=== PATIENT | male | born 1950 | race Caucasian/White ===

== ENCOUNTER 2023-11-01 13:26 | Outpatient (CLI) | payer MEDICARE, SELFPAY ==
--- NOTE | ~2023-11-01 | XR_ITS ---
XR hip LT 2V w AP pelvis DATE: 11/01/2023 13:59 INDICATION: Left hip pain. No injury. TECHNIQUE: AP pelvis. AP and lateral views of left hip. COMPARISON: None FINDINGS: No pelvic fracture or bone destruction. The pubic symphysis and sacroiliac joints are intac t. Hip joint spaces are symmetric and relatively well preserved. No fracture, dislocation, avascular necrosis or bone destruction. IMPRESSION: Negative Reviewed, dictated and finalized at location L. CLEANING MACHINE TENDER IMPRESSION: Negative
--- NOTE | ~2023-11-01 | XR_ITS ---
XR knee RT min 4V DATE: 11/01/2023 13:59 INDICATION: Right knee pain TECHNIQUE: [place], standing AP, PA and lateral views COMPARISON: 01/04/2023 right knee FINDINGS: There is severe narrowing at the medial compartment joint space with periarticular spurring of the medial compartment with near [id number] at the more medial aspect of the medial compartment . Lateral compartment joint space is well preserved. Mild periarticular patellar spurring. Mild enthesopathy at the insertion of the quadriceps tendon at the superior pole of the patella. No fracture or dislocation, radiopaque intra-articular loose body or chondrocalcinosis or significant joint effusion is evident. No periosteal reaction or bone destruction. 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 N SAMPLER IMPRESSION: Tricompartment osteoarthritis, most severe at the medial compartmen t
--- NOTE | ~2023-11-01 | XR_ITS ---
XR knee LT min 4V DATE: 11/01/2023 14:00 INDICATION: Left knee pain. No injury. TECHNIQUE: [place], standing AP, PA and lateral views COMPARISON: None FINDINGS: There is superior pole patellar enthesopathy at quadriceps tendon insertion. There is minimal periarticular spurring of the patella. There is mild to moderate loss of medial compartment joint space height. Lateral compartment joint sp ramon is well preserved. No fracture or dislocation or joint effusion, periosteal reaction or bone destruction, radiopaque int ra-articular loose body or chondrocalcinosis. IMPRESSION: Mild patellofemoral and medial compartment osteoarthritis Reviewed, dictated and finalized at location L. INE PACKER
== END 2023-11-01 13:27 | disposition home or self-care (01) ==
PROVIDERS: PCP Family Medicine; Visit Provider Orthopaedic Surgery
DX: M25.552 Pain in left hip (principal); M17.0 Bilateral primary osteoarthritis of knee
CPT/HCPCS: 73502; 73564

== ENCOUNTER 2024-09-12 12:31 | Outpatient (CLI) | payer OTHER, SELFPAY ==
--- NOTE | ~2024-09-12 | XR_ITS ---
EXAMINATION: XR hip LT 2V w AP pelvis DATE: 09/12/2024 12:54 INDICATION: Unilateral primary osteoarthritis, left hip. TECHNIQUE: An anteroposterior view of the pelvis and 2 views of left hip were obtained. COMPARISON: Pelvis and left hip radiographs 11/01/2023 FINDINGS: Alignment is normal. No fracture. There is mild lumbar spondylosis. There is mild osteoarth ritis of the hips. IMPRESSION: 1. Mild osteoarthritis of the hips. Reviewed, dictated and finalized at location A. EN SETTLING TENDER
--- NOTE | ~2024-09-12 | XR_ITS ---
EXAMINATION: XR knee RT min 4V DATE: 09/12/2024 12:54 INDICATION: Right knee pain. TECHNIQUE: 4 views of right knee including weight-bearing views were obtained. COMPARISON: Right knee radiographs 11/01/2023 FINDINGS: There is varus angulation at the knee. No fracture. There is moderate osteoarthritis of med ial compartment and mild osteoarthritis of lateral and patellofemoral fragments. No knee joint effusi on. IMPRESSION: 1. Moderate right knee osteoarthritis. Reviewed, dictated and finalized at location A. OPERATOR
== END 2024-09-12 12:32 | disposition home or self-care (01) ==
PROVIDERS: PCP Family Medicine; Visit Provider Orthopaedic Surgery
DX: M17.11 Unilateral primary osteoarthritis, right knee (principal); M16.12 Unilateral primary osteoarthritis, left hip
CPT/HCPCS: 73502; 73564

== ENCOUNTER 2024-09-30 08:38 | Outpatient (CLI) | payer OTHER, SELFPAY ==
--- NOTE | ~2024-09-30 | CT_ITS ---
EXAMINATION: CT LE RT wo con DATE: 09/30/2024 09:04 INDICATION: Right knee osteoarthritis. Preoperative planning. TECHNIQUE: Computed tomography (CT) of the right lower limb was performed without intravenous contras t. Automated exposure control and iterative reconstruction technique were employed. The dose-length p roduct was 1880.62 mGy-cm. COMPARISON: Right knee radiographs 09/12/2024 FINDINGS: There is mild right hip osteoarthritis. There is varus angulation at the knee. No fracture. There is moderate osteoarthritis of medial compartment and mild osteoarthritis of lateral and patell ofemoral compartments. No knee joint effusion. IMPRESSION: 1. Moderate right knee osteoarthritis. Reviewed, dictated and finalized at location A. ENT AND LACQUER MIXER
--- NOTE | 2024-09-30 09:27 | ECG_ITS ---
Test Date: 2024-09-30 09:39:27 Measurements Intervals [place] Rate: 61 P: 57 NJ: 195 QRS: 29 QRSD: 114 T: 52 QT: 422 QTc: 427 Interpretive Statements SINUS RHYTHM POSSIBLE INFERIOR MYOCARDIAL INFARCTION , PROBABLY OLD [30 ms Q WAVE IN II/aVF] No previous ECG available for comparison Electronically Signed On 09-30-2024 15:28:48 NUT ORCHARDIST by Darvin Milner M.D.
[2024-09-30 10:18] LABS: Hematocrit 39.5 % (42.0-52.0); Hemoglobin 12.7 g/dL (14.0-18.0)
[2024-09-30 10:30] LABS: Albumin Level 4.3 g/dL (3.5-5.1); Estimated Glomerular Filt Rate > 60; Glucose 116 mg/dL (65-110)
== END 2024-09-30 08:39 | disposition home or self-care (01) ==
PROVIDERS: PCP Family Medicine; Visit Provider Orthopaedic Surgery
DX: M17.11 Unilateral primary osteoarthritis, right knee (principal); E61.1 Iron deficiency; F11.90 Opioid use, unspecified, uncomplicated; R42 Dizziness and giddiness; M23.203 Derangement of unspecified medial meniscus due to old tear or injury, right knee
CPT/HCPCS: 36415; 73700; 82040; 82565; 82947; 85014; 85018; 93005

== ENCOUNTER 2024-12-15 09:47 | Outpatient (CLI) | payer OTHER, SELFPAY ==
[2024-12-15 11:30] LABS: Basophils Absolute Auto 0.1 K/mm3 (0.0-0.1); Eosinophils Absolute Auto 0.2 K/mm3 (0-0.3); Eosinophils Percent Auto 2.2 % (0-4.4); Hematocrit 39.4 % (42.0-52.0); Hemoglobin 12.6 g/dL (14.0-18.0); Immature Granulocyte Absolute 0.05 K/mm3 (0.00-0.031); Immature Granulocyte Percent A 0.5 % (0-0.5); Lymphocytes Absolute Auto 2.24 K/mm3 (0.9-3.2); Lymphocytes Percent Auto 23.2 % (18.3-44.2); Mean Corpuscular Hemoglobin 28.9 pg (26-34); Mean Corpuscular Volume 90.4 fl (80-100); Mean Platelet Volume 10.2 fl (7.4-10.4); Monocytes Absolute Auto 0.9 K/mm3 (0.1-0.6); Monocytes Percent Auto 9.4 % (2.6-8.5); Neutrophils Absolute Auto 6.2 K/mm3 (1.3-6.7); Neutrophils Percent Auto 63.7 % (45.5-73.1); Platelet Count Result 278 k/mm3 (150-375); Red Blood Count 4.36 M/mm3 (4.6-6.20); Red Cell Distribution Width 13.4 % (11.5-14.5); White Blood Count 9.7 K/mm3 (4.5-10.0)
[2024-12-15 11:44] LABS: Albumin Level 4.4 g/dL (3.5-5.1); Estimated Glomerular Filt Rate > 60; Glucose 105 mg/dL (65-110)
[2024-12-15 12:03] LABS: Urine Cotinine NEGATIVE
--- OUTSIDE RECORDS SUMMARY | 2024-12-15 12:40 | XMS_ITS | Clinical Summary ---
Author Organization [facility] Address [address] [address] Phone Care Team Providers Care Salvage Laborer Name Role Phone Ronni Simon MD Primary Care Provider [phone] Allergies No known active allergies Medications Multiple Vitamin (MULTIVITAMINS PO) Take 1 Tablet by mouth daily. Active clopidogrel (PLAVIX) 75 MG Tablet Take 1 Tablet by mouth daily. 90 Tablet 3 4 Active amLODIPine (NORVASC) 5 MG Tablet Take 1 Tablet by mouth 2 times daily. 180 Tablet 3 4 Active ferrous sulfate 325 (65 Fe) MG Tablet Take 1 Tablet by mouth daily. 90 Tablet 3 4 Active Additional Information Patient taking differently:325 mg Oral2 TIMES DAILY, Reported on 11/26/2024 levothyroxine (SYNTHROID) 100 MCG Tablet Take 1 Tablet by mouth daily. 90 Tablet 3 4 Active losartan (COZAAR) 50 MG Tablet Take 1 Tablet by mouth 2 times daily. 180 Tablet 3 4 Active pravastatin (PRAVACHOL) 80 MG Tablet Take 1 Tablet by mouth daily. 90 Tablet 3 4 Active zolpidem (AMBIEN) 10 MG TabletIndicatio ns:Insomnia, unspecified type Take 1 Tablet by mouth nightly as needed for Sleep. 30 Tablet 5 Active zolpidem (AMBIEN) 10 MG TabletIndicatio ns:Insomnia, unspecified type Take 1 Tablet by mouth nightly as needed for Sleep. 30 Tablet 4 025 Discontin ued(Reord er) Active Problems Problem Noted Date Diagnosed Date Abnormal EKG 10/13/2024 Therapeutic drug monitoring 10/13/2024 Screening for colon cancer 06/03/2024 Primary hypertension 03/06/2024 Chronic hip pain, left 01/08/2024 Paresthesias 09/06/2023 Pain of left lower extremity 09/06/2023 Claudication 09/06/2023 Hemorrhoids 08/22/2021 Scalp pain 02/08/2021 Chronic pain syndrome 01/05/2021 Chronic narcotic use 01/05/2021 Mass of soft tissue 07/27/2020 Dizziness 04/22/2020 Abnormal x-ray of neck 04/22/2020 Chronic neck pain 04/22/2020 Spinal stenosis of cervical region 04/22/2020 History of stroke 04/22/2020 Neck pain 03/25/2020 Insomnia 07/01/2019 Fatigue 07/01/2019 Anemia, normocytic normochromic 06/25/2019 Hyperglycemia 06/25/2019 Overweight (BMI 25.0-29.9) 06/17/2018 History of recent stroke 03/13/2018 Herpes zoster without complication 03/05/2018 Obesity (BMI 30-39.9) 11/28/2017 Skin lesions 11/28/2017 Thyroid activity decreased 11/19/2015 Erectile dysfunction 11/19/2015 Hypertension, essential 11/19/2015 Thyroid activity decreased 11/19/2015 Hyperlipidemia 11/19/2015 Iron deficiency anemia 11/19/2015 Resolved Problems Problem Noted Date Diagnosed Date Resolved Date Overweight(278.02) 04/11/2017 8 Encounters Date Type Department Care Team Description 11/28[facility] [place] [phone] Ronni Simon MD Medication Refill 11/26/2024 Travel 11/20/2024 Documentation Only [facility] [place] [address] [place] [address] Ronni Simon MD 11/07/2024 Telephone [facility] - [facility] Medicine - [place] [address] [place] [address] Ronin Simon MD 10/30/2024 3:00 PM DUMBWAITER OPERATOR Office Visit [facility] - General Surgery - [place] [address] [place] [address] Aldo Perez MD Special screening for malignant neoplasms, colon (Primary Dx) Discharge Disposition: Discharged to home or Selfcare 10/30/2024 Travel 10/15/2024 8:45 AM DUMBWAITER OPERATOR - 10/15/2024 11:59 PM DUMBWAITER OPERATOR [facility] [address] [place] [address] Oehl, January N, SALES AND SERVICE ENGINEER, TELEPHONE TRIAGE NURSE Discharge Disposition: Discharged to home or Selfcare 10/15/2024 8:04 AM DUMBWAITER OPERATOR - 10/15/2024 8:44 AM DUMBWAITER OPERATOR [facility] [address] [place] [address] Oehl, January N, SALES AND SERVICE ENGINEER, TELEPHONE TRIAGE NURSE Discharge Disposition: Discharged to home or Selfcare 10/15/2024 7:50 AM DUMBWAITER OPERATOR - 10/15/2024 8:03 AM DUMBWAITER OPERATOR [facility] [address] [place] [address] Oehl, January N, SALES AND SERVICE ENGINEER, TELEPHONE TRIAGE NURSE Discharge Disposition: Discharged to home or Selfcare 10/15/2024 7:44 AM DUMBWAITER OPERATOR - 10/15/2024 7:49 AM DUMBWAITER OPERATOR [facility] Cardiology Stress [address] [place] [address] Oemalcolm, January N, SALES AND SERVICE ENGINEER, TELEPHONE TRIAGE NURSE Discharge Disposition: Discharged to home or Selfcare 10/15/2024 [facility] [place] [address] [place] [address] Oemalcolm, January N, SALES AND SERVICE ENGINEER, TELEPHONE TRIAGE NURSE 10/15/2024 Results Follow-Up [facility] [address] [place] [address] Temitope Vaz, SALES AND SERVICE ENGINEER, TELEPHONE TRIAGE NURSE 10/14/2024 Travel 10/14/2024 Telephone [facility] [address] [place] [address] Ronni Simon MD JURY DUTY NOTE 10/13/2024 1:30 PM DUMBWAITER OPERATOR Office Visit [facility] [address] [place] [address] Ronni Simon MD Chronic pain syndrome (Primary Dx); Abnormal EKG; Therapeutic drug monitoring; Insomnia, unspecified type Discharge Disposition: Discharged to home or Selfcare 10/13/2024 Travel 10/11/2024 Travel 10/08/2024 Telephone [facility] [address] [place] [phone] Ronni Simon MD Need Order (Need stress test order); Requesting Jury Duty Letter 10/08/2024 Telephone [facility] [address] [place] [address] Ronni Simon MD Advice Only 10/03/2024 Telephone [facility] [address] [place] [phone] Ronni Simon MD Need Order 09/22/2024 9:00 AM DUMBWAITER OPERATOR Office Visit [facility] [address] [place] [address] Temitope Vaz, SALES AND SERVICE ENGINEER, TELEPHONE TRIAGE NURSE Preop examination (Primary Dx); Insomnia, unspecified type Discharge Disposition: Discharged to home or Selfcare 09/22/2024 Travel 09/20/2024 Travel 09/17/2024 Documentation Only [facility] [address] [place] [address] Ronni Simon MD from Last 3 Months Immunizations Immunization Administration Dates Next Due Influenza Vaccine greater than 3 yrs 07/13/2011 TD VACCINE 10/29/2009,08/06/2008,10/29/2006 Td (Adult) 08/06/2008 Family History Medical History Relation Name Comments Chronic Obstructive Pulmonary Disease Brother 1 Rheumatoid Arthritis Brother 2 No Known Problems Daughter Seizures Father No Known Problems Maternal Grandfather No Known Problems Maternal Grandmother Diabetes Mother Hypertension Mother Stroke Mother No Known Problems Paternal Grandfather No Known Problems Paternal Grandmother Chronic Obstructive Pulmonary Disease Sister Heart Surgery Son Valve Relation Name Status Comments Brother 1 Alive Brother 2 Alive Daughter Alive Father Maternal Grandfather Maternal Grandmother Mother Paternal Grandfather Paternal Grandmother Sister Alive Son Alive Social History Tobacco Use Types Packs/Day Years Used Date Smoking Tobacco: Former Cigarettes 1.5 14.1 1 11/13/1962 - 1977 Smokeless Tobacco: Never Tobacco Cessation:Counseling Given: Yes Comments:Started age of 13 Alcohol Use Standard Drinks/Week Comments No 0 (1 standard drink = 0.6 oz pur e alcohol) [facility] Utilities Answer Date Recorded In the past 12 months has [employer] electric, gas, oil, or water company threatened to shut off services in your home? No 09/03/2024 Social Connection and Isolat ion Panel [NHANES] Answer Date Recorded In a typical week, how many times do you talk on the phone with family, friends, or neighbors? More than three times a week 09/03/2024 How often do you get togethe r with friends or relatives? More than three times a week 09/03/2024 How often do you attend chur ch or roman catholic services? More than 4 times per year 09/03/2024 Do you belong to any clubs o r organizations such as shinto groups, unions, fraternal or athletic groups, or school groups? Yes 09/03/2024 How often do you attend meet ings of the clubs or organizations you belong to? More than 4 times per year 09/03/2024 Are you , , di vorced, , never , or living with a partner? 09/03/2024 AUDIT-C Answer Date Recorded Q1: How often do you have a drink containing alcohol? Never 09/03/2024 Q2: How many drinks containi ng alcohol do you have on a typical day when you are drinking? Patient does not drink Q3: How often do you have si x or more drinks on one occasion? Never 09/03/2024 Overall Financial Resource Strain (CARDIA) Answe r Date Recorded How hard is it for you to pa y for the very basics like food, housing, medical care, and heating? Not hard at all 09/03/2024 PHQ-2 Answer Date Recorded Total Score - Questions 1-9 0 01/2022 [facility] - Occupational Stress Questionnaire Answer Date Recorded Do you feel stress - tense, restless, nervous, or anxious, or unable to sleep at night because your mind is troubled all the time - these days? Not at all 09/03/2024 Exercise Vital Sign Answer Date Recorde d On average, how many days pe r week do you engage in moderate to strenuous exercise (like a brisk walk)? 3 days 09/03/2024 On average, how many minutes do you engage in exercise at this level? 50 min 09/03/2024 Hunger Vital Sign Answer Date Recorded Within the past 12 months, y ou worried that your food would run out before you got the money to buy more. Never true 09/03/20 24 Within the past 12 months, t he food you bought just didn't last and you didn't have money to get more. Never true 09/03/2024 PRAPARE - Transportation Answer Date Re corded In the past 12 months, has l ack of transportation kept you from medical appointments or from getting medications? No 03/2024 In the past 12 months, has l ack of transportation kept you from meetings, work, or from getting things needed for daily living? No 09/03/2024 Housing Stability Vital Sign Answer Yoni e Recorded In the last 12 months, was t here a time when you were not able to pay the mortgage or rent on time? No 09/03/2024 In the past 12 months, how m any times have you moved where you were living? 0 09/03/2024 At any time in the past 12 m onths, were you homeless or living in a longterm (including now)? No 09/03/2024 Education Answer Date Recorded What is the highest level of school you have completed or the highest degree you have received? 12th grade 09/01/2022 Sexually Active Control Partners Comments Yes Female Sex and Gender Information Value Date Recorded Sex Assigned at Not on file Legal Sex Male 10:17 PM CDT Gender Identity Not on file Sexual Orientation Not on file Last Filed Vital Signs Vital Sign Reading Time Taken Comments Blood Pressure 160/88 10/30/2024 3:15 PM DUMBWAITER OPERATOR Pulse 73 10/30/2024 3:15 PM DUMBWAITER OPERATOR Temperature 36.6 C (97.8 F) 10/30/2024 3:15 PM DUMBWAITER OPERATOR Respiratory Rate 16 09/22/2024 8:44 AM DUMBWAITER OPERATOR Oxygen Saturation 96% 10/30/2024 3:15 PM DUMBWAITER OPERATOR Inhaled Oxygen Concentration - - Weight 90.3 kg (199 lb) 11/26/2024 2:29 PM DUMBWAITER OPERATOR Height 172.7 cm (5' 8 ) 11/26/2024 2:29 PM DUMBWAITER OPERATOR Body Mass Index 30.26 11/26/2024 2:29 PM DUMBWAITER OPERATOR Plan of Treatment Upcoming Encounters Date Type Department Care Team (Late st Contact Info) Description 02/12/2025 1:00 PM CDT Office Visit [facility] - [facility] [address] [place] [address] Ronni Simon MD #[address] [address] 03/06/2025 2:15 PM CDT Office Visit [facility] - Internal Medicine - [place] [address] [place] [phone] Corrina Lou, POPPY [address] [place] [address] 03/16/2025 8:30 AM CDT [facility] Per[facility] [address] [place] [phone] Aldo Perez MD #[address] [address] 03/16/2025 8:30 AM CDT - 03/16/2025 9:00 AM CDT Surgery [facility] Gi Lab Periop [address] [place] [phone] Aldo Perez MD #[address] [address] COLONOSCOPY Scheduled Procedures Name Priority Associated Diagnoses Date/Ti me COLONOSCOPY SCREENING FOR COLON CANCER 03/16/2025 8:30 AM CDT Health Maintenance Due Date Last Done Comments TdaP Immunization 1950 Pneumococcal Immunization (5 0+ years) (1 of 1 - PCV) 1998 Zoster Immunization (1 of 2) 1998 Respiratory Syncytial Virus (RSV) Immunization (Adult) (1 - 1-dose 75+ series) 2023 Influenza Immunization (#1) 2024 07/13/2011 SARS-COV-2 Immunization ( - season) 2024 Colonoscopy High Risk Discontinued 02/10/2015 Colonoscopy Discontinued 02/10/2015 Hepatitis C Virus (HCV) Screening Completed 018 Colorectal Cancer Screening Discontinued Immunochemical Fecal Occult Blood Discontinued 019 Cologuard Discontinued Hepatitis B Immunization Aged Out No longer eligible based on patient's age to complete this topic Meningococcal Immunization (ACWY) Aged Out No longer eligible based on patient's age to complete this topic Rotavirus Immunization Aged Out No lo nger eligible based on patient's age to complete this topic Procedures Procedure Name Priority Date/Time Associated Diagnosis Comments NM CARD MULTI SPECT WITH WALL MOTION AND EJECTION FRACTION Routine 10/15/2024 8:52 AM DUMBWAITER OPERATOR Abnormal EKG ADULT CV STRESS PHARMACOLOGIC W NUC MED Routine 10/15/2024 8:36 AM DUMBWAITER OPERATOR Abnormal EKG EKG SCAN 09/30/2024 12:[address] - LOWER EXTREMITY 09/30/2024 12:00 AM DUMBWAITER OPERATOR STOOL, OCCULT BLOOD, SCREEN Routine 07/12/2019 HEPATITIS C ANTIBODY Routine 09/23/2018 10:08 AM DUMBWAITER OPERATOR Encounter for hepatitis C screening test for low risk patient HM COLONOSCOPY Routine 02/10/2015 from Last 3 Months or Most Recently Relevant to Health Maintenance Results * NM CARD MULTI SPECT WITH WALL MOTION AND EJECTION FRACTION (10/15/2024 8:52 AM DUMBWAITER OPERATOR) Anatomical Region Laterality Modality CARDIO N/A Nuclear Medicine 10/15/2024 9:31 AM DUMBWAITER OPERATOR Impressions 10/15/2024 9:34 AM DUMBWAITER OPERATOR IMPRESSION: 1. No evidence of myocardial ischemia. 2. Diminished activity typical of attenuation and motion artifact. 3. No convincing evidence of myocardial ischemia. 4. Normal left ventricular ejection fraction poststress. 5. Normal left ventricular wall motion. Narrative 10/15/2024 9:34 AM DUMBWAITER OPERATOR EXAM DESCRIPTION: NM CARD MULTI SPECT WITH WALL MOTION AND EJECTION FRACTION REASON FOR STUDY: abnormal ekg- pre op for knee surgery, Hx HTN, HLD RADIOPHARMACEUTICAL: Rest: 11.3 mCi Tc-99m tetrofosmin via a left wrist IV site. Stress: 34.8 mCi Tc-99m tetrofosmin via a left wrist IV site. TECHNIQUE: Standard myocardial perfusion SPECT images were obtained after resting tracer injection. Subsequently, an intravenous infusion of 0.4 mg Lexiscan was performed. Standard myocardial perfusion SPECT images were obtained after tracer injection at the peak effect of the drug. COMPARISON: None. FINDINGS: Image quality is adequate at rest and adequate at stress. There is no reversible perfusion defect. There are areas of diminished activity 180 degrees opposition this is more significant on the rest images typical combination of uncorrectable horizontal motion and attenuation artifact. The left ventricular cavity size is normal. Gated tomographic images demonstrate normal wall motion and wall thickening with a left ventricular ejection fraction of 79% poststress (normal >45%). THIS IS AN ELECTRONICALLY VERIFIED FINAL REPORT 10/15/2024 9:31 AM - Electronically signed by Tono Wolf M.D. CH: DESTINY Report ID: [id number] Reading Location: [id number] Procedure Note Tono Wolf Jr., MD - 10/15/2024 EXAM DESCRIPTION: NM CARD MULTI SPECT WITH WALL MOTION AND EJECTION FRACTION REASON FOR STUDY: abnormal ekg- pre op for knee surgery, Hx HTN, HLD RADIOPHARMACEUTICAL: Rest: 11.3 mCi Tc-99m tetrofosmin via a left wrist IV site. Stress: 34.8 mCi Tc-99m tetrofosmin via a left wrist IV site. TECHNIQUE: Standard myocardial perfusion SPECT images were obtained after resting tracer injection. Subsequently, an intravenous infusion of 0.4 mg Lexiscan was performed. Standard myocardial perfusion SPECT images were obtained after tracer injection at the peak effect of the drug. COMPARISON: None. FINDINGS: Image quality is adequate at rest and adequate at stress. There is no reversible perfusion defect. There are areas of diminished activity 180 degrees opposition this is more significant on the rest images typical combination of uncorrectable horizontal motion and attenuation artifact. The left ventricular cavity size is normal. Gated tomographic images demonstrate normal wall motion and wall thickening with a left ventricular ejection fraction of 79% poststress (normal >45%). THIS IS AN ELECTRONICALLY VERIFIED FINAL REPORT 10/15/2024 9:31 AM - Electronically signed by Tono Wolf M.D. CH: DESTINY Report ID: [id number] Reading Location: [id number] IMPRESSION: 1. No evidence of myocardial ischemia. 2. Diminished activity typical of attenuation and motion artifact. 3. No convincing evidence of myocardial ischemia. 4. Normal left ventricular ejection fraction poststress. 5. Normal left ventricular wall motion. us January Oehl SALES AND SERVICE ENGINEER, TELEPHONE TRIAGE NURSE IMG NM CARDIAC NI ORDERAB LES Final Result * ADULT CV STRESS PHARMACOLOGIC W NUC MED (10/15/2024 8:36 AM DUMBWAITER OPERATOR) Anatomical Region Laterality Modality CARDIO N/A Electrocardiogra phy Narrative 10/15/2024 1:23 PM DUMBWAITER OPERATOR Non-Imaging Stress Test Patient Name ROMERO Bautista D.O.B. 1950 Patient ID ([facility]) [id number] Indications: Abnormal ECG. Study Date10/15/2024 Type of Study: Non-Imaging Stress Test: Pharmacological. Conclusions Summary Negative for ischemia by EKG criteria. Recommendation Await nuclear images to be reported separately. Rest ECG Normal sinus rhythm. Standing HR:62 bpmStanding BP:157/76 mmHg Results ECG Normal sinus rhythm. No ST segment changes diagnostic of ischemia. Symptoms No chest pain. Shortness of breath. Stress Stress Type - Protocol:Pharmacologic - Persantine Peak HR: 93 bpm [id number] Peak BP: 115/56 mmHg Predicted HR: 144 bpm % of predicted HR: 65 Test Duration: 1:00 min Reason for Termination: Completed Stress Protocol:Pharmacologic - Persantine +--------+--------+-----+------+-----+--------+--+--------+----+------+ !Stage # !Stage !Time !Dosage!Heart!Blood !CP!Pain !Pain!Pain ! ! !Name ! ! !Rate !Pressure! !Location!Type!Action! +--------+--------+-----+------+-----+--------+--+--------+----+------+ !Rest !REST !05:45! !59 !157/76 ! ! ! ! ! +--------+--------+-----+------+-----+--------+--+--------+----+------+ !0.0 !Stage 1 !01:00! !79 ! ! ! ! ! ! +--------+--------+-----+------+-----+--------+--+--------+----+------+ !1.0 !Stage 2 !00:44! !91 !115/56 ! ! ! ! ! +--------+--------+-----+------+-----+--------+--+--------+----+------+ !Recovery!RECOVERY!01:00! !86 ! ! ! ! ! ! +--------+--------+-----+------+-----+--------+--+--------+----+------+ !Recovery! !02:00! !84 ! ! ! ! ! ! +--------+--------+-----+------+-----+--------+--+--------+----+------+ !Recovery! !03:00! !81 ! ! ! ! ! ! +--------+--------+-----+------+-----+--------+--+--------+----+------+ !Recovery! !04:00! !74 ! ! ! ! ! ! +--------+--------+-----+------+-----+--------+--+--------+----+------+ !Recovery! !04:41! !76 !147/59 ! ! ! ! ! +--------+--------+-----+------+-----+--------+--+--------+----+------+ Demographics Age 74 Gender Male Race Height 68 in. Weight 198 lbs. BMI 30.11 kg/m^2 Stress Genetics Physician Nurse Keri Figueroa Interpreting Shaniqua Galindo Referring Physician Physician Procedure Note Kory Mcgovern MD - 10/15/2024 Non-Imaging Stress Test Patient Name ROMERO Bautista 1950 Patient ID ([facility]) [id number] Indications: Abnormal ECG. Study Date10/15/2024 Type of Study: Non-Imaging Stress Test: Pharmacological. Conclusions Summary Negative for ischemia by EKG criteria. Recommendation Await nuclear images to be reported separately. Rest ECG Normal sinus rhythm. Standing HR:62 bpmStanding BP:157/76 mmHg Results ECG Normal sinus rhythm. No ST segment changes diagnostic of ischemia. Symptoms No chest pain. Shortness of breath. Stress Stress Type - Protocol:Pharmacologic - Persantine Peak HR: 93 bpm [id number] Peak BP: 115/56 mmHg Predicted HR: 144 bpm % of predicted HR: 65 Test Duration: 1:00 min Reason for Termination: Completed Stress Protocol:Pharmacologic - Persantine +--------+--------+-----+------+-----+--------+--+--------+----+------+ !Stage # !Stage !Time !Dosage!Heart!Blood !CP!Pain !Pain!Pain ! ! !Name ! ! !Rate !Pressure! !Location!Type!Action! +--------+--------+-----+------+-----+--------+--+--------+----+------+ !Rest !REST !05:45! !59 !157/76 ! ! ! ! ! +--------+--------+-----+------+-----+--------+--+--------+----+------+ !0.0 !Stage 1 !01:00! !79 ! ! ! ! ! ! +--------+--------+-----+------+-----+--------+--+--------+----+------+ !1.0 !Stage 2 !00:44! !91 !115/56 ! ! ! ! ! +--------+--------+-----+------+-----+--------+--+--------+----+------+ !Recovery!RECOVERY!01:00! !86 ! ! ! ! ! ! +--------+--------+-----+------+-----+--------+--+--------+----+------+ !Recovery! !02:00! !84 ! ! ! ! ! ! +--------+--------+-----+------+-----+--------+--+--------+----+------+ !Recovery! !03:00! !81 ! ! ! ! ! ! +--------+--------+-----+------+-----+--------+--+--------+----+------+ !Recovery! !04:00! !74 ! ! ! ! ! ! +--------+--------+-----+------+-----+--------+--+--------+----+------+ !Recovery! !04:41! !76 !147/59 ! ! ! ! ! +--------+--------+-----+------+-----+--------+--+--------+----+------+ Demographics Age 74 Gender Male Race Height 68 in. Weight 198 lbs. BMI 30.11 kg/m^2 Stress Genetics Physician Nurse Keri Galindo Referring Physician Physician us Temitope N Татьяна DOE CNP IMG STRESS Final Res ult * EKG SCAN (09/30/2024 12:00 AM DUMBWAITER OPERATOR) 09/30/2024 us Provider Scan IMG ECG ORDERABLES Final Result RESULTING AGENCY * CT - LOWER EXTREMITY (09/30/2024 12:00 AM DUMBWAITER OPERATOR) 09/30/2024 us Provider Scan IMG CT ORDERABLES Final Result SCAN * STOOL, OCCULT BLOOD, SCREEN FOR CA (07/12/2019) Stool specimen (specimen) STOOL SPECIMEN / Unknown us Not On File Provider URINE ORDERABLES Final Resu lt * HEPATITIS C ANTIBODY (09/23/2018 10:08 AM DUMBWAITER OPERATOR) hepatitis C antibody 0.07 <1 S/CO 09/23/2018 9:53 PM DUMBWAITER OPERATOR [facility] Comment: Signal/Cutoff ratio < 0.79 is Nondetected Signal/Cutoff ratio 0.80-0.99 is Grayzone Signal/Cutoff ratio > 0.99 is Detected Supplemental assays are recommended if signal/cutoff ratio is >/=1.00. Signal/cutoff ratio result >/= 5.00 is 97% predictive of positivity for recombinant immunoblot assay (RIBA) and will be reported to the [place] Department of Public Health as required. Blood specimen (specimen) Venipuncture / Unknown 09/23/2018 10:08 AM DUMBWAITER OPERATOR 09/23/2018 10:08 AM DUMBWAITER OPERATOR Ronni Simon MD CHEMISTRY ORDERABLES Final Result Performing Organization Address City/State/[facility] Co de Phone Number [facility] [address] [place] [address], * COLONOSCOPY (02/10/2015) Rome Fernandes MD PROCEDURE/MINOR SURGICAL OR DERABLES Final Result from Last 3 Months or Most Recently Relevant to Health Maintenance Insurance MEDICARE C [place] Care Teams Salvage Laborer Relationship Specialty Start Date End Date Ronni Simon MD [address] [place] [id number] PCP - General Family Medicine 09/12/15
--- OUTSIDE RECORDS SUMMARY | 2024-12-15 12:40 | XMS_ITS | Encounter Summary ---
Author Organization [facility] Address [address] [place] [address] Phone Care Team Providers Care Museum Host/Hostess Name Role Phone Ronni Simon MD Primary Care Provider [phone]- [phone] Reason for Visit * Reason Comments Medication Refill Encounter Details Date Type Department Care Team (Late st Contact Info) Description 01/18/2023 Refill [facility] #2 [place] [address] Ronni Simon MD #[address] [address] Medication Refill Social History Tobacco Use Types Packs/Day Years Used Date Smoking Tobacco: Former Cigarettes 1.5 14.1 1 11/13/1962 - 1977 Smokeless Tobacco: Never Comments:Started age of 13 Alcohol Use Standard Drinks/Week Comments No 0 (1 standard drink = 0.6 oz pur e alcohol) PHQ-2 Answer Date Recorded Total Score - Questions 1-9 0 05/0 01/2022 Education Answer Date Recorded What is the highest level of school you have completed or the highest degree you have received? 12th grade 09/01/2022 Sexually Active Control Partners Comments Not Currently Female Sex and Gender Information Value Date Recorded Sex Assigned at Not on file Legal Sex Male 10:17 PM CDT Gender Identity Not on file Sexual Orientation Not on file documented as of this encounter Miscellaneous Notes * Telephone Encounter - Alexa Raman RN - 01/18/2023 9:43 AM CDT Per nursing clinical judgement, provider to review and approve the medication(s) order(s) if appropriate. Requested Prescriptions Pending Prescriptions Disp Refills losartan (COZAAR) 50 MG Tablet [Pharmacy Med Name: Losartan Potassium 50 MG Oral Tablet] 200 Tablet2 Sig: TAKE 1 TABLET BY MOUTH TWICE DAILY ARB Protocol Passed - 01/18/2023 3:15 AM Passed - Serum potassium on record in past 12 months POTASSIUM Date Value Ref Range Status 03/30/2022 4.1 3.5 - 5.1 mmol/L Final Passed - BP on record in the past year Clinician-entered: BP Readings from Last 3 Encounters: 11/06/22 138/62 09/04/22 134/68 03/01/22 126/80 Patient-entered: No data recorded Passed - Visit with relevant provider in past year or upcoming 90 days Recent Visits Date Type Provider Dept 11/06/22 Office Visit Carlos Winslow APRN, INTERNAL MEDICINE VETERINARY TECHNICIAN [facility] 09/04/22 Office Visit [facility] 03/01/22 Office Visit Ronni Simon MD [facility] [place] Showing recent visits within past 365 days and meeting all other requirements Future Appointments Date Type Provider Dept 03/06/23 Appointment Ronni Simon MD [facility] Showing future appointments within next 90 days and meeting all other requirements Passed - GFR on record in past 12 months GFR, EST. NONAFRICAN Date Value Ref Range Status 03/30/2022 >60 >=60 Final documented in this encounter Plan of Treatment Upcoming Encounters Date Type Department Care Team (Late st Contact Info) Description 02/12/2025 1:00 PM CDT Office Visit [facility] - Family Medicine - [place] [address] [facility] [place] [address] Ronni Simon MD [address] [place] [address] 03/06/2025 2:15 PM CDT Office Visit [facility] - [place] [address] [facility] [place] [address] Corrina Lou, PAC [address] [place] [address] 03/16/2025 8:30 AM CDT [facility] [address] [place] [address] Aldo Perez MD #[address] [address] 03/16/2025 8:30 AM CDT - 03/16/2025 9:00 AM CDT [facility] [address] [place] [address] Aldo Perez MD #[address] [address] COLONOSCOPY Scheduled Procedures Name Priority Associated Diagnoses Date/Ti ny COLONOSCOPY SCREENING FOR COLON CANCER 03/16/2025 8:30 AM CDT documented as of this encounter Visit Diagnoses Not on filedocumented in this encounter Additional Health Concerns Assessment Noted Time PHQ-9 Depression Total Score: 0 01/06/20 21 9:00 AM GRANTS ADMINISTRATOR documented as of this encounter Care Teams Museum Host/Hostess Relationship Specialty Start Date End Date Ronni Simon MD #2 [facility] [address] [place] [address] PCP - General Family Medicine 09/12/15 documented as of this encounter
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
--- OUTSIDE RECORDS SUMMARY | 2024-12-15 12:40 | XMS_ITS | Referral Summary ---
Author Organization [facility] Address [address] [place] [address] Care Team Providers Care Carpenter'S Assistant Name Role Phone Ronni Simon MD Primary Care Provider [phone] -[phone] Allergies No known active allergies Medications amLODIPine [...] 1 tablet (75 mcg total) by mouth horticultural manager before breakfast Active losartan (COZAAR) 50 mg [...] stage II (mild) 03/14/20 14 Overview (01/31/2017): MAJOR ACCOUNT MANAGER KIDNEY DIS STAGE II Benign hypertension 03/14/2014 Overview (02/03/2017): BENIGN HYPERTENSION Benign prostatic hyperplasia 06/05/2011 Overview (01/31/2017): BPH (benign prostatic hypertrophy) Hyperlipidemia 09/27/2010 Overview (02/01/2017): Hyperlipidemia LDL goal < 130 Hypothyroidism 09/27/2010 Overview (02/02/2017): Hypothyroidism Herpes zoster without complication Immunizations Immunization Administration Dates Next Due Influenza, Split 07/13/2011 Td, adsorbed 08/06/2008,10/29/2006 Social History Tobacco Use Types Packs/Day Years Used Date Smoking Tobacco: Former Cigarettes Smokeless Tobacco: Never Tobacco Cessation:Counseling Given: Not Answered Alcohol Use Standard Drinks/Week Comments No 0 (1 standard drink = 0.6 oz pur e alcohol) Sex and Gender Information Value Date Recorded Sex Assigned at Not on file Legal Sex Male 11:56 PM RESEARCH DEVELOPMENT DIRECTOR Gender Identity Not on file Sexual Orientation [...] 05/28/2024 11:34 AM CDT Plan of Treatment Not on file Insurance [employer] CHOICE PPO [employer] CHOICE PPO Advance Directives For more information, please contact: [phone] * Full Code (Latest Code Status on File) Date Activated Date Inactivated Comments 03/09/2018 11:46 PM 03/11/2018 8:26 PM Care Teams Carpenter'S Assistant Relationship Specialty Start Date End Date Ronni Simon MD [address] [address] PCP - General Family Medicine 05/28/24
--- OUTSIDE RECORDS SUMMARY | 2024-12-15 12:40 | XMS_ITS | Encounter Summary ---
Author Organization [facility] Address [address] [place] [address] Phone Care Team Providers Care Dictaphone Mechanic Name Role Phone Ronni Simon MD Primary Care Provider [phone]- [phone] Encounter Details Date Type Department Care Team (Late st Contact Info) Description 10/15/2024 Results Follow-Up [facility] Medical Group - Family Medicine - [place] #2 [place] [address] Татьяна, Temitope N, AIRLINE STATION AGENT, REEL TENDER 2 [facility]. [address] [place] [address] Social History Tobacco Use Types Packs/Day Years Used Date Smoking Tobacco: Former Cigarettes 1.5 14.1 1 11/13/1962 - 1977 Smokeless Tobacco: Never Comments:Started age of 13 Alcohol Use Standard Drinks/Week Comments No 0 (1 standard drink = 0.6 oz pur e alcohol) [facility] Utilities Answer Date Recorded In the past 12 months has [employer] electric, gas, oil, or water company threatened [...] week 09/03/2024 How often do you attend [facility] or shinto services? More than 4 times per year 09/03/2024 Do you belong to any clubs o r organizations such as holiness groups, unions, fraternal or athletic groups, or [...] Total Score - Questions 1-9 0 01/2022 [facility] Occupat ional [facility] - Occupational Stress Questionnaire Answer Date Recorded [...] any time in the past 12 m [place], were you homeless or living in a snf (including now)? No 09/03/2024 Education Answer Date [...] on file documented as of this encounter Progress Notes * Dottie Centeno RN - 10/17/2024 9:09 AM CST Spoke with , on PRD. She verbalizes understanding. INTERN * Temitope Vaz APRN, CNP - 10/15/2024 3:59 PM CST This is normal :) No new orders. INTERN * Temitope Vaz APRN, CNP - 10/15/2024 9:48 AM CST 1. No evidence of myocardial ischemia. 2. Diminished activity typical of attenuation and motion artifact. 3. No convincing evidence of myocardial ischemia. 4. Normal left ventricular ejection fraction poststress. 5. Normal left ventricular wall motion. INTERN documented in this encounter Plan of Treatment Upcoming Encounters Date Type Department Care Team (Late st Contact Info) Description 02/12/2025 1:00 PM CDT Office Visit [facility] Family [facility] #2 [place] [address] Ronni Simon MD #[address] [address] 03/06/2025 2:15 PM CDT Office Visit [facility] Medical [facility] - Internal Medicine - [place] [address] [place] [address] Corrina Lou, [facility] [address] [place] [address] 03/16/2025 8:30 AM CDT Hospital Encounter [facility] Gi Lab Periop 1 [place] [address] Aldo Perez MD #[address] [address] 03/16/2025 8:30 AM CDT - 03/16/2025 9:00 AM CDT Surgery [facility] Gi Lab Periop [address] [place] [address] Aldo Perez MD #[address] [address] COLONOSCOPY Scheduled Procedures Name Priority Associated Diagnoses Date/Ti me COLONOSCOPY SCREENING FOR COLON CANCER 03/16/2025 8:30 AM CDT documented as of this encounter Visit Diagnoses Not on filedocumented in this encounter Additional Health Concerns Assessment Noted Time PHQ-9 Depression Total Score: 0 01/06/20 21 9:00 AM CAD INTERN documented as of this encounter Care Teams Dictaphone Mechanic Relationship Specialty Start Date End Date Ronni Simon MD #[address] [address] PCP - General Family Medicine 09/12/15 documented as of this encounter
--- OUTSIDE RECORDS SUMMARY | 2024-12-15 12:40 | XMS_ITS | Encounter Summary ---
Author Organization [facility] Address [address] [place] [address] Phone Care Team Providers Care Dog Day Care Attendant Name Role Phone Ronni Simon MD Primary Care Provider [phone]- [phone] Encounter Details Date Type Department Care Team (Late Contact Info) Description 04/03/2024 [facility]cribe [facility] [address] [place] [address] Eddi Skaggs MD #1 [place] [address] Social History Tobacco Use Types Packs/Day Years [...] on file documented as of this encounter Plan of Treatment Upcoming Encounters Date Type Department Care Team (Late Contact Info) Description 02/12/2025 1:00 PM CDT Office Visit [facility] - Family [facility] #2 [place] [address] Ronni Simon MD #[address] [address] 03/06/2025 2:15 PM CDT Office Visit [facility] Medical [facility] - Internal Medicine - [place] [address] [place] [address] Corrina Lou, PAC [address] [place] [address] 03/16/2025 8:30 AM CDT Hospital Encounter [facility] Gi Lab Periop [address] [place] [address] Aldo Perez MD #[address] [address] 03/16/2025 8:30 AM CDT - 03/16/2025 9:00 AM CDT Surgery [facility] Gi Lab Periop [address] [place] [address] Aldo Perez MD #[address] [address] COLONOSCOPY Scheduled Procedures Name Priority Associated Diagnoses Date/Ti me COLONOSCOPY SCREENING FOR COLON CANCER 03/16/2025 8:30 AM CDT documented as of this encounter Visit Diagnoses Not on filedocumented in this encounter Additional Health Concerns Assessment Noted Time PHQ-9 Depression Total Score: 0 01/06/20 21 9:00 AM SPRAY WORKER documented as of this encounter Care Teams Dog Day Care Attendant Relationship Specialty Start Date End Date Ronni Simon MD #[address] [address] PCP - General Family Medicine 09/12/15 documented as of this encounter
--- OUTSIDE RECORDS SUMMARY | 2024-12-15 12:40 | XMS_ITS | Encounter Summary ---
Author Organization [facility] Address [address] [place] [address] Phone Care Team Providers Care Government Sales Manager Name Role Phone Ronni Simon MD Primary Care Provider [phone]- [phone] Reason for Visit * Reason Comments Medication Refill Encounter Details Date Type Department Care Team (Late st Contact Info) Description 07/06/2021 Refill [facility] [address] [place] [address] Ronni Simon MD #[address] [address] Medication Refill Social History Tobacco Use Types Packs/Day Years Used Date Smoking Tobacco: Former Smokeless Tobacco: Never Alcohol Use Standard Drinks/Week Comments No 0 (1 standard drink = 0.6 oz pur e alcohol) PHQ-2 Answer Date Recorded Total Score - Questions 1-9 0 12/27 Sex and Gender Information Value Date Recorded Sex Assigned at Not on file Legal Sex Male 10:17 PM CDT Gender Identity Not on file Sexual Orientation Not on file documented as of this encounter Miscellaneous Notes * Telephone Encounter - Kelsie Hoover RN - 07/07/2021 10:14 AM CDT Medication failed the protocol, provider to review and approve the medication order if appropriate. Last OV 02/08/21, F/U none, Last Rx 09/06/20, Last TSH 01/02/2020 CINDY Iglesias RN Requested Prescriptions Pending Prescriptions Disp Refills levothyroxine (SYNTHROID) 88 MCG Tablet [Pharmacy Med Name: Levothyroxine Sodium 88 MCG Oral Tablet] 90 Tablet 3 Sig: TAKE 1 TABLET BY MOUTH DAILY Thyroid Hormones Protocol Failed - 07/06/2021 6:47 AM Failed - Normal TSH in past 12 months TSH Date Value Ref Range Status 01/02/2020 2.530 0.270 - 4.200 mIU/L Final Passed - Visit with relevant provider in past 12 months or upcoming 90 days Recent Visits Date Type Provider Dept 02/08/21 Office Visit Ronni Simon MD [facility] 01/05/21 Office Visit Ronni Simon MD [facility] 10/06/20 Office Visit Ronni Simon MD [facility] 07/27/20 [facility] Showing recent visits within past 365 days and meeting all other requirements Future Appointments No visits were found meeting these conditions. Showing future appointments within next 90 days and meeting all other requirements documented in this encounter Plan of Treatment Upcoming Encounters Date Type Department Care Team (Late st Contact Info) Description 02/12/2025 1:00 PM CDT Office Visit [facility] - Family [facility] #2 [place] [address] Ronni Simon MD #[address] [address] 03/06/2025 2:15 PM CDT Office Visit [facility] Medical [facility] - Internal Medicine [facility] [address] [place] [address] Corrina Lou, [facility] [address] [place] [address] 03/16/2025 8:30 AM CDT [facility] [address] [place] [address] Aldo ePrez MD #[address] [address] 03/16/2025 8:30 AM CDT - 03/16/2025 9:00 AM CDT [facility] [address] [place] [address] Aldo Perez MD #[address] [address] COLONOSCOPY Scheduled Procedures Name Priority Associated Diagnoses Date/Ti me COLONOSCOPY SCREENING FOR COLON CANCER 03/16/2025 8:30 AM CDT documented as of this encounter Visit Diagnoses Not on filedocumented in this encounter Additional Health Concerns Assessment Noted Time PHQ-9 Depression Total Score: 0 01/06/20 21 9:00 AM RECREATION THERAPIST documented as of this encounter Care Teams Government Sales Manager Relationship Specialty Start Date End Date Ronni Simon MD #2 [facility] [address] [place] [address] PCP - General Family Medicine 09/12/15 documented as of this encounter
--- OUTSIDE RECORDS SUMMARY | 2024-12-15 12:40 | XMS_ITS | Encounter Summary ---
Author Organization [facility] Address [address] [place] [address] Phone Care Team Providers Care School Community Relations Coordinator Name Role Phone Alfred Ronniradha Rodriguez MD Primary Care Provider [phone]- [phone] Reason for Visit * Reason Comments Medication Refill Encounter Details Date Type Department Care Team (Late st Contact Info) Description 12/20/2021 Refill [facility] #2 [place] [address] Carlos Winslow APRN, DRY STARCH OPERATOR #[address] [address] Medication Refill Social History Tobacco Use Types Packs/Day Years Used Date Smoking Tobacco: Former Cigarettes 1.5 14.1 1 11/13/1962 - 1977 Smokeless Tobacco: Never Comments:Started age of 13 Alcohol Use Standard Drinks/Week Comments No 0 (1 standard drink = 0.6 oz pur e alcohol) PHQ-2 Answer Date Recorded Total Score - Questions 1-9 0 12/27 Sexually Active Control Partners Comments Not Currently Female Sex and Gender Information Value Date Recorded Sex Assigned at Not on file Legal Sex Male 10:17 PM CDT Gender Identity Not on file Sexual Orientation Not on file documented as of this encounter Miscellaneous Notes * Telephone Encounter - Alexa Raman RN - 12/21/2021 10:00 AM CST Medication failed the protocol, provider to review and approve the medication order if appropriate. Requested Prescriptions Pending Prescriptions Disp Refills levothyroxine (SYNTHROID) 88 MCG Tablet [Pharmacy Med Name: Levothyroxine Sodium 88 MCG Oral Tablet] 90 Tablet 1 Sig: TAKE 1 TABLET BY MOUTH DAILY Thyroid Hormones Protocol Failed - 12/20/2021 10:32 PM Failed - Normal TSH in past 12 months TSH Date Value Ref Range Status 01/02/2020 2.530 0.270 - 4.200 mIU/L Final Passed - Visit with relevant provider in past 12 months or upcoming 90 days Recent Visits Date Type Provider Dept 08/22/21 Office Visit Ronni Simon MD [facility] 02/08/21 Office Visit Ronni Simon MD [facility] 01/05/21 Office Visit Ronni Simon MD [facility] Showing recent visits within past 365 days and meeting all other requirements Future Appointments Date Type Provider Dept 02/20/22 Appointment Ronni Simon MD [facility] Showing future appointments within next 90 days and meeting all other requirements RTISING CONSULTANT documented in this encounter Plan of Treatment Upcoming Encounters Date Type Department Care Team (Late st Contact Info) Description 02/12/2025 1:00 PM CDT Office Visit [facility] #2 [place] [address] Ronni Simon MD #[address] [address] 03/06/2025 2:15 PM CDT Office Visit [facility] - Internal Medicine [facility] [address] [place] [address] Corrina Lou, [facility] [address] [place] [address] 03/16/2025 8:30 AM CDT Hospital Encounter [facility] Gi Lab Periop 1 [place] [address] Aldo Perez MD #[address] [address] 03/16/2025 8:30 AM CDT - 03/16/2025 9:00 AM CDT [facility] 1 [place] [address] Aldo Perez MD #[address] [address] COLONOSCOPY Scheduled Procedures Name Priority Associated Diagnoses Date/Ti me COLONOSCOPY SCREENING FOR COLON CANCER 03/16/2025 8:30 AM CDT documented as of this encounter Visit Diagnoses Not on filedocumented in this encounter Additional Health Concerns Assessment Noted Time PHQ-9 Depression Total Score: 0 01/06/20 21 9:00 AM ADVERTISING CONSULTANT documented as of this encounter Care Teams School Community Relations Coordinator Relationship Specialty Start Date End Date Ronni Simon MD #[address] [address] PCP - General Family Medicine 09/12/15 documented as of this encounter
--- OUTSIDE RECORDS SUMMARY | 2024-12-15 12:40 | XMS_ITS | Encounter Summary ---
Author Organization [facility] Address [address] [place] [address] Phone Care Team Providers Care Director Pharmacy Services Name Role Phone Alfred Ronniradha Rodriguez MD Primary Care Provider [phone] Reason for Visit * Reason Comments Medication Refill Encounter Details Date Type Department Care Team (Late st Contact Info) Description 04/20/2023 Refill [facility] #2 [place] [address] Carlos Winslow APRN, OUT OF SCHOOL HOURS CARE WORKER #[address] [address] Medication Refill Social History Tobacco Use Types [...] on file Sexual Orientation Not on file COVID-19 Exposure Response Date Recorded In the last 10 days, have yo u been in contact with someone who was confirmed or suspected to have Coronavirus/COVID-19? No / Unsure 04/03/2023 10:30 AM CDT documented as of this encounter Miscellaneous Notes * Telephone Encounter - Priyanka Goldberg RN - 04/21/2023 7:50 AM CDT Upcoming appt 09/06/2023 Medication failed the protocol, provider to review and approve the medication order if appropriate. Requested Prescriptions Pending Prescriptions Disp Refills levothyroxine (SYNTHROID) 88 MCG Tablet [Pharmacy Med Name: Levothyroxine Sodium 88 MCG Oral Tablet] 100 Tablet 2 Sig: TAKE 1 TABLET BY MOUTH DAILY Thyroid Hormones Protocol Failed - 04/20/2023 9:30 PM Failed - Normal TSH in past 12 months TSH Date Value Ref Range Status 04/03/2023 4.350 (H) 0.270 - 4.200 mIU/L Final Passed - Visit with relevant provider in past 12 months or upcoming 90 days Recent Visits Date Type Provider Dept 03/06/23 Office Visit [facility] 11/06/22 Office Visit Carlos Winslow APRN, RADHA [facility] 09/04/22 Office Visit Ronni Simon MD [facility] Showing recent visits within past 365 days and meeting all other requirements Future Appointments No visits were found meeting these conditions. Showing future appointments within next 90 days and meeting all other requirements documented in this encounter Plan of Treatment Upcoming Encounters Date Type Department Care Team (Late st Contact Info) Description 02/12/2025 1:00 PM CDT Office Visit [facility] - Family Medicine - [place] [address] [place] [address] Ronni Simon MD [address] [address] 03/06/2025 2:15 PM CDT Office Visit [facility] - Internal Medicine - [place] [address] [place] [address] Corrnia Lou, PAC [address] [place] [address] 03/16/2025 8:30 AM CDT [facility] 1 [place] [address] Aldo Perez MD #[address] [address] 03/16/2025 8:30 AM CDT - 03/16/2025 9:00 AM CDT [facility] 1 [place] [address] Aldo Perez MD #[address] [address] COLONOSCOPY Scheduled Procedures Name Priority Associated Diagnoses Date/Ti me COLONOSCOPY SCREENING FOR COLON CANCER 03/16/2025 8:30 AM CDT documented as of this encounter Visit Diagnoses Not on filedocumented in this encounter Additional Health Concerns Assessment Noted Time PHQ-9 Depression Total Score: 0 01/06/20 21 9:00 AM INTERNAL MEDICINE NURSE documented as of this encounter Care Teams Director Pharmacy Services Relationship Specialty Start Date End Date Ronni Simon MD #[address] [address] PCP - General Family Medicine 09/12/15 documented as of this encounter
--- OUTSIDE RECORDS SUMMARY | 2024-12-15 12:40 | XMS_ITS | Encounter Summary ---
Author Organization [facility] Address [address] [place] [address] Phone Care Team Providers Care Tongue And Quarter Stitcher Name Role Phone Ronni Simon MD Primary Care Provider [phone] Reason for Visit * Reason Comments Medication Refill Encounter Details Date Type Department Care Team (Late st Contact Info) Description 12/04/2020 Refill [facility] #2 [place] [address] Ronni Simon MD #[address] [address] Medication Refill Social History Tobacco Use Types Packs/Day Years Used Date Smoking Tobacco: Former Smokeless Tobacco: Never Alcohol Use Standard Drinks/Week Comments No 0 (1 standard drink = 0.6 oz pur e alcohol) PHQ-2 Answer Date Recorded Total Score - Questions 1-9 0 03/30 Sex and Gender Information Value Date Recorded Sex Assigned at Not on file Legal Sex Male 10:17 PM CDT Gender Identity Not on file Sexual Orientation Not on file documented as of this encounter Miscellaneous Notes * Telephone Encounter - Nereyda Villanueva RN - 12/05/2020 2:07 PM CST Medication failed the protocol, provider to review and approve the medication order if appropriate.Last OV 10/06/20, no UDS on file. Requested Prescriptions Pending Prescriptions Disp Refills zolpidem (AMBIEN) 10 MG Tablet [Pharmacy Med Name: ZOLPIDEM 10MG TAB] 30 Tablet Sig: TAKE 1 TABLET BY MOUTH AT NIGHT NEEDED FOR SLEEP Not Delegated - Psychiatry: Anxiolytics/Hypnotics Failed - 12/04/2020 10:50 PM Failed - This refill cannot be delegated Passed - Valid encounter within last 6 months Past Office Visits Recent Outpatient Visits 2 months ago Chronic neck pain [facility] Ronni Hu MD 4 months ago [facility], [facility] Chronic neck pain [facility] Ronni Hu MD 8 months ago [facility] Hyperlipidemia, unspecified hyperlipidemia [facility] Upcoming Appointments Future Appointments In 1 month Ronni Simon MD [facility] CUST[facility] SUPERVISOR - Recent and Past Visits Recent Visits Date Type Provider Dept 10/06/20 Office Visit Ronni Simon MD [facility] 07/27/20 Office Visit Ronni Simon MD [facility] 04/22/20 Office Visit Ronni Simon MD [facility] 03/25/20 Office Visit Ronni Simon MD [facility] 12/18/19 Office Visit Ronni Simon MD [facility] 09/18/19 Office Visit Carlos Winslow APN, SCIENCE TUTOR [facility] Showing recent visits within past 460 days with a meds authorizing provider and meeting all other requirements Future Appointments Date Type Provider Dept 01/05/21 Appointment Ronni Simon MD [facility] Showing future appointments within next 90 days with a meds authorizing provider and meeting all other requirements GER POKER documented in this encounter Plan of Treatment Upcoming Encounters Date Type Department Care Team (Late st Contact Info) Description 02/12/2025 1:00 PM CDT Office Visit [facility] [place] [address] Ronni Simon MD #2 [facility] [address] [place] [address] 03/06/2025 2:15 PM CDT Office Visit [facility] Internal Medicine - [place] [address] [place] [address] Corrina Lou, [facility] [address] [place] [address] 03/16/2025 8:30 AM CDT Hospital Encounter [facility] Gi Lab Periop 1 [place] [address] Aldo Perez MD #[address] [address] 03/16/2025 8:30 AM CDT - 03/16/2025 9:00 AM CDT [facility] 1 [place] [address] Aldo Perez MD #[address] [address] COLONOSCOPY Scheduled Procedures Name Priority Associated Diagnoses Date/Ti me COLONOSCOPY SCREENING FOR COLON CANCER 03/16/2025 8:30 AM CDT documented as of this encounter Visit Diagnoses Diagnosis Insomnia, unspecified type documented in this encounter Additional Health Concerns Assessment Noted Time PHQ-9 Depression Total Score: 0 04/22/20 20 1:00 PM CDT documented as of this encounter Care Teams Tongue And Quarter Stitcher Relationship Specialty Start Date End Date Ronni Simon MD #2 [place] [address] PCP - General Family Medicine 09/12/15 documented as of this encounter
--- OUTSIDE RECORDS SUMMARY | 2024-12-15 12:40 | XMS_ITS | Patient Health Summary ---
Author Organization [facility] Address [address] [place] [address] Care Team Providers Care Ferryboat Pilot Name Role Phone Unavailable Primary Care Provider Unavailabl e Note from [facility],non-owned Affiliates and Associated Physician Practices is amultiple site organization consisting of ambulatory clinics and hospital sitesin [place], [place], [place] and [place]. This disclosure is being madepursuant to the Care Everywhere program and may not contain all information available regarding this patient. Last updated 18.[facility] Allergies No known active allergies Medications * Be aware that medications may not be up to date on this document. Alwaysverify current medications with the patient. * losartan (COZAAR) 50 MG tablet(Started 04/22/2020) * levothyroxine (SYNTHROID) 88 MCG tablet(Started 04/22/2020) * pravastatin (PRAVACHOL) 80 MG tablet(Started 04/22/2020) * amLODIPine (NORVASC) 5 MG tablet(Started 04/22/2020) * clopidogrel (PLAVIX) 75 MG tablet(Started 04/05/2020) * Vitamins-Lipotropics (MULTIPLE VITAMIN) capsule Take 1 tablet by mouth once daily * zolpidem (AMBIEN) 10 MG tablet(Started 04/22/2020) * HYDROcodone-acetaminophen (NORCO) 5-325 MG tablet(Started 04/22/2020) * Ferrous Sulfate (IRON PO) Social History Tobacco Use Types Packs/Day Years Used Date Smoking Tobacco: Former Cigarettes 0.5 13 1 - 1977 Smokeless Tobacco: Never Alcohol Use Standard Drinks/Week Comments Not Currently 0 (1 standard drink = 0.6 oz pur e alcohol) quit 1977 Sex and Gender Information Value Date Recorded Sex Assigned at Not on file Gender Identity Not on file Sexual Orientation Not on file Last Filed Vital Signs Vital Sign Reading Time Taken Comments Blood Pressure - - Pulse - - Temperature - - Respiratory Rate - - Oxygen Saturation - - Inhaled Oxygen Concentration - - Weight 82.1 kg (181 lb) 03/21/2021 11:51 AM CDT Height 172.7 cm (5' 8 ) 03/21/2021 11:51 AM CDT Body Mass Index 27.52 03/21/2021 11:51 AM CDT
--- OUTSIDE RECORDS SUMMARY | 2024-12-15 12:40 | XMS_ITS | Encounter Summary ---
Author Organization [facility] Address [address] [facility] [facility] [address] Phone Care Team Providers Care Event Technician Name Role Phone Ronni Simon MD Primary Care Provider [phone]- [phone] Encounter Details Date Type Department Care Team (Late st Contact Info) Description 09/07/2020 Telephone [facility] Oncology Services [address] [place] [id number] Mendel Dillard MD [address] [place], [place] [id number] Social History Tobacco Use Types Packs/Day Years [...] Exposure Response Date Recorded In the last month, have you been in contact with someone who was confirmed or suspected to have Coronavirus / COVID-19? No / Unsure 08/30/2020 8:36 AM HELP DESK COORDINATOR documented as of this encounter Miscellaneous Notes * Telephone Encounter - Karly Burdick - 09/07/2020 10:13 AM CST The patient states that he viewed his labs on myChart, and feels he does not need a 6 month appointment as recommended in Dr. Dillard's May 2020 note. DESK COORDINATOR documented in this encounter Plan of Treatment Upcoming Encounters Date Type Department Care Team (Late st Contact Info) Description 02/12/2025 1:00 PM CDT Office Visit [facility] #2 [place] [address] Ronni Simon MD #2 [facility] [address] [place] [address] 03/06/2025 2:15 PM CDT Office Visit [facility] [address] [place] [address] Corrina Lou, [facility] [address] [place] [address] 03/16/2025 8:30 AM CDT Hospital Encounter [facility] Gi Lab Periop 1 [place] [address] Aldo Perez MD #[address] [address] 03/16/2025 8:30 AM CDT - 03/16/2025 9:00 AM CDT [facility] 1 [place] [address] Aldo Perez MD #[address] [address] COLONOSCOPY Scheduled Procedures Name Priority Associated Diagnoses Date/Ti me COLONOSCOPY SCREENING FOR COLON CANCER 03/16/2025 8:30 AM CDT documented as of this encounter Visit Diagnoses Not on filedocumented in this encounter Additional Health Concerns Assessment Noted Time PHQ-9 Depression Total Score: 0 04/22/20 20 1:00 PM CDT documented as of this encounter Care Teams Event Technician Relationship Specialty Start Date End Date Ronni Simon MD #[address] [address] PCP - General Family Medicine 09/12/15 documented as of this encounter
--- OUTSIDE RECORDS SUMMARY | 2024-12-15 12:40 | XMS_ITS | Encounter Summary ---
Author Organization [facility] Address [address] [place] [address] Phone Care Team Providers Care Renewable Energy Engineer Name Role Phone Ronni Simon MD Primary Care Provider [phone]- [phone] Encounter Details Date Type Department Care Team (Late st Contact Info) Description 10/15/2024 Results Follow-Up [facility] - Family Medicine - [place] #2 [place] [address] Татьяна, Temitope N, FAMILY PRACTICE PHYSICIAN ASSISTANT, LODGING HOUSE KEEPER [facility] [address] [place] [address] Social History Tobacco Use Types Packs/Day Years Used Date Smoking Tobacco: Former Cigarettes 1.5 14.1 1 11/13/1962 - 1977 Smokeless Tobacco: Never Comments:Started age of 13 Alcohol Use Standard Drinks/Week Comments No 0 (1 standard drink = 0.6 oz pur e alcohol) [facility] Utilities Answer Date Recorded In the past 12 months has [employer] electric, gas, oil, or water company threatened [...] week 09/03/2024 How often do you attend [facility] or anglican services? More than 4 times per year 09/03/2024 Do you belong to any clubs o r organizations such as quaker groups, unions, fraternal or athletic groups, or [...] Total Score - Questions 1-9 0 01/2022 [facility] of Occupat ional [facility] - Occupational Stress Questionnaire Answer Date Recorded [...] any time in the past 12 m [facility], were you homeless or living in a mcc (including now)? No 09/03/2024 Education Answer Date [...] Notes * Dottie Centeno RN - 10/17/2024 9:10 AM CST Spoke with , on PRD. She verbalizes understanding. HELP DESK OFFICER * Temitope Vaz APRN, CNP - 10/17/2024 7:52 AM CST The test states negative ST segment changes. Negative for ischemia by EKG criteria. No issues per this test. Thanks HELP DESK OFFICER * Temitope Vaz APRN, CNP - 10/15/2024 1:50 PM CST ok HELP DESK OFFICER documented in this encounter Plan of Treatment Upcoming Encounters Date Type Department Care Team (Late st Contact Info) Description 02/12/2025 1:00 PM CDT Office Visit [facility] - Family [facility] #2 [place] [address] Ronni Simon MD #[address] [address] 03/06/2025 2:15 PM CDT [facility] - [place] [address] [place] [address] Corrina Lou, PAC [address] [place] [address] 03/16/2025 8:30 AM CDT Hospital Encounter [facility] Gi Lab Periop 1 [place] [address] Aldo Perez MD #[address] [address] 03/16/2025 8:30 AM CDT - 03/16/2025 9:00 AM CDT [facility] [address] [place] [address] Aldo Perez MD #[address] [address] COLONOSCOPY Scheduled Procedures Name Priority Associated Diagnoses Date/Ti la COLONOSCOPY SCREENING FOR COLON CANCER 03/16/2025 8:30 AM CDT documented as of this encounter Visit Diagnoses Not on filedocumented in this encounter Additional Health Concerns Assessment Noted Time PHQ-9 Depression Total Score: 0 01/06/20 21 9:00 AM ICT HELP DESK OFFICER documented as of this encounter Care Teams Renewable Energy Engineer Relationship Specialty Start Date End Date Ronni Simon MD #[address] [address] PCP - General Family Medicine 09/12/15 documented as of this encounter
--- OUTSIDE RECORDS SUMMARY | 2024-12-15 12:40 | XMS_ITS | Clinical Summary ---
Author Organization [facility] [employer] Address [address] [place] [address] Care Team Providers Care Bowling Ball Finisher Name Role Phone Unavailable Primary Care Provider Unavailabl e Source Comments [facility] [employer],non-owned Affiliates and Associated Physician Practices is amultiple site organization consisting of ambulatory clinics and hospital sitesin [place], [place], [place] and [place]. This disclosure is being madepursuant to the Care Everywhere program and may not contain all information available regarding this patient. Last updated 18.[employer] Allergies No known active allergies Medications * Be aware that medications may not be up to date on this document. Alwaysverify current medications with the patient. Medication Sig Dispensed Refills Start Date End Date Status losartan (COZAAR) 50 MG tablet 04/22/2020 Active levothyroxine (SYNTHROID) 88 MCG tablet 04/22/2020 Active pravastatin (PRAVACHOL) 80 MG tablet 04/22/2020 Active amLODIPine (NORVASC) 5 MG tablet 04/22/2020 Active clopidogrel (PLAVIX) 75 MG tablet 04/05/2020 Active Vitamins-Lipotropics (MULTIPLE VITAMIN) capsule Take 1 tablet by mouth once daily Active zolpidem (AMBIEN) 10 MG tablet 04/22/2020 Active HYDROcodone-acetaminop hen (NORCO) 5-325 MG tablet 04/22/2020 Active Ferrous Sulfate (IRON PO) Active Family History Medical History Relation Name Comments COPD - Chronic Obstructive Pulmonary Disease Brother None Known Father COPD - Chronic Obstructive Pulmonary Disease Mother ? CVA Mother cause of Diabetes - Type 1 Mother COPD - Chronic Obstructive Pulmonary Disease Sister Relation Name Status Comments Brother Alive Father Mother Sister Alive Social History Tobacco Use Types Packs/Day Years Used Date Smoking Tobacco: Former Cigarettes 0.5 13 1 965 - 1977 Smokeless Tobacco: Never Alcohol Use [...] Mass Index 27.52 03/21/2021 11:51 AM CDT Plan of Treatment Health Maintenance Due Date Last Done Comments HEPATITIS C SCREENING 07/24/1966 DTAP/TDAP/TD VACCINES (1 - Tdap) 1967 PNEUMOCOCCAL VACCINE 50+ (1 of 1 - PCV) 1998 ZOSTER VACCINE (1 of 2) 1998 Respiratory Syncytial Virus (RSV) Vaccine Pt: or over 60 yrs (1 - 1-dose 75+ series) 2023 COVID-19 VACCINE ( - 2023-2 5 season) 2024 INFLUENZA VACCINE (#1) 2024 07/13/2011 DEPRESSION SCREENING 10/29/2024 MEDICARE AWV CALENDAR YEAR 2024 HEPATITIS B VACCINE Aged Out No longe r eligible based on patient's age to complete this topic HIB VACCINE Aged Out No longer eligi ble based on patient's age to complete this topic HPV VACCINE Aged Out No longer eligi ble based on patient's age to complete this topic MENINGOCOCCAL (Group B) VACCINE Aged Out No longer eligible based on patient's age to complete this topic MENINGOCOCCAL VACCINE Aged Out No josie dylan eligible based on patient's age to complete this topic
--- OUTSIDE RECORDS SUMMARY | 2024-12-15 12:40 | XMS_ITS | Encounter Summary ---
Author Organization [facility] Address [address] [place] [address] Phone Care Team Providers Care Tool Inspector Name Role Phone Ronni Simon MD Primary Care Provider +1- [phone] Reason for Visit * Reason Comments Medication Refill Encounter Details Date Type Department Care Team (Late st Contact Info) Description 06/06/2021 Refill [facility] [address] [place] [address] Ronni Simon MD #[address] [address] Medication Refill Social History Tobacco Use Types [...] Telephone Encounter - Alexa Raman RN - 06/07/2021 9:48 AM CDT [place] 04/04/21 - last appt 02/08/21 - no follow up Medication failed the protocol, provider to review and approve the medication order if appropriate. Requested Prescriptions Pending Prescriptions Disp Refills zolpidem (AMBIEN) 10 MG Tablet [Pharmacy Med Name: ZOLPIDEM 10MG TAB] 30 Tablet Sig: TAKE 1 TABLET BY MOUTH AT NIGHT NEEDED FOR SLEEP There is no refill protocol information for this order documented in this encounter Plan of Treatment Upcoming Encounters Date Type Department Care Team (Late st Contact Info) Description 02/12/2025 1:00 PM CDT Office Visit [facility] Family [facility] #2 [place] [address] Ronni Simon MD #[address] [address] 03/06/2025 2:15 PM CDT Office Visit [facility] Internal Medicine [facility] [address] [place] [address] Corrina Lou, [facility] [address] [place] [address] 03/16/2025 8:30 AM CDT Hospital Encounter [facility] Periop 1 [place] [address] Aldo Perez MD #[address] [address] 03/16/2025 8:30 AM CDT - 03/16/2025 9:00 AM CDT Surgery [facility] Gi Lab Periop 1 [place] [address] Aldo Perez MD #[address] [address] COLONOSCOPY Scheduled Procedures Name Priority Associated Diagnoses Date/Ti me COLONOSCOPY SCREENING FOR COLON CANCER 03/16/2025 8:30 AM CDT documented as of this encounter Visit Diagnoses Diagnosis Insomnia, unspecified type documented in this encounter Additional Health Concerns Assessment Noted Time PHQ-9 Depression Total Score: 0 01/06/20 21 9:00 AM NAIL KEGGER documented as of this encounter Care Teams Tool Inspector Relationship Specialty Start Date End Date Ronni Simon MD #2 [place] [address] PCP - General Family Medicine 09/12/15 documented as of this encounter
--- OUTSIDE RECORDS SUMMARY | 2024-12-15 12:40 | XMS_ITS | Encounter Summary ---
Author Organization [facility] Address [address] [place] [address] Phone Care Team Providers Care [place] Attorney Name Role Phone Ronni Simon MD Primary Care Provider [phone]- [phone] Reason for Visit * Reason Comments Medication Refill Encounter Details Date Type Department Care Team (Late st Contact Info) Description 09/03/2020 Refill [facility] #2 [place] [address] Ronni Simon MD #[address] [address] Medication Refill Social History Tobacco Use Types [...] COVID-19? No / Unsure 08/30/2020 8:36 AM KINESEOLOGIST documented as of this encounter Miscellaneous Notes * Telephone Encounter - Alexa Raman RN - 09/06/2020 10:10 AM CST Medication failed the protocol, provider to review and approve the medication order if appropriate. Requested Prescriptions Pending Prescriptions Disp Refills levothyroxine (SYNTHROID) 88 MCG Tablet [Pharmacy Med Name: LEVOTHYROXINE 88MCG TAB] 90 Tab 3 Sig: TAKE 1 TABLET BY MOUTH DAILY Endocrinology: Hypothyroid Agents Passed - 09/03/2020 9:29 PM Passed - Valid encounter within last 12 months Past Office Visits Recent Outpatient Visits 1 month ago [facility], [facility] 4 months ago Chronic neck pain [facility] Ronni Hu MD 5 months ago Neck pain [facility] Ronni Hu MD 8 months ago Hyperlipidemia, unspecified hyperlipidemia type [facility] Ronni Hu MD 11 months ago Injury of right foot, initial encounter [facility] Carlos Ferrara APN, ART GALLERY DIRECTOR Upcoming Appointments Future Appointments In 1 month Ronni Simon MD [facility] [employer] - Recent and Past Visits Recent Visits Date Type Provider Dept 07/27/20 Office Visit Ronni Simon MD [facility] 04/22/20 Office Visit Ronni Simon MD [facility] 03/25/20 Office Visit Ronni Simon MD [facility] 12/18/19 Office Visit Ronni Simon MD [facility] 09/18/19 Office Visit Carlos Winslow APN, RADHA Cruz 08/06/19 Office Visit Ronni Simon MD [facility] 07/01/19 Office Visit Ronni Simon MD [facility] Showing recent visits within past 460 days with a meds authorizing provider and meeting all other requirements Future Appointments Date Type Provider Dept 11/01/20 Appointment Ronni Simon MD [facility] Showing future appointments within next 90 days with a meds authorizing provider and meeting all other requirements Passed - TSH in normal range and within 360 days TSH Date Value Ref Range Status 01/02/2020 2.530 0.270 - 4.200 mIU/L Final amLODIPine (NORVASC) 5 MG Tablet [Pharmacy Med Name: AMLODIPINE 5MG TAB] 180 Tab 3 Sig: TAKE 1 TABLET BY MOUTH TWO TIMES DAILY Cardiovascular: Calcium Channel Blockers Failed - 09/03/2020 9:29 PM Failed - Last BP in normal range BP Readings from Last 1 Encounters: 07/27/20 148/70 Passed - Valid encounter within last 12 months Past Office Visits Recent Outpatient Visits 1 month ago Hypertension, essential [facility] Ronni Hu MD 4 months ago Chronic neck pain [facility] Ronni Hu MD 5 months ago Neck pain [facility] Ronni Hu MD 8 months ago Hyperlipidemia, unspecified hyperlipidemia type [facility] Ronni Hu MD 11 months ago Injury of right foot, initial encounter [facility] Carlos Ferrara APN, RADHA Upcoming Appointments Future Appointments In 1 month Ronni Simon MD [facility] - Recent and Past Visits Recent Visits Date Type Provider Dept 07/27/20 Office Visit Ronni Simon MD [facility] 04/22/20 Office Visit Ronni Simon MD [facility] 03/25/20 Office Visit Ronni Simon MD [facility] 12/18/19 Office Visit Ronni Simon MD [facility] 09/18/19 Office Visit Carlos Winslow APN, RADHA Lewistim Cruz 08/06/19 Office Visit Ronni Simon MD [facility] 07/01/19 Office Visit Ronni Simon MD [facility] Showing recent visits within past 460 days with a meds authorizing provider and meeting all other requirements Future Appointments Date Type Provider Dept 11/01/20 Appointment Ronni Simon MD [facility] Showing future appointments within next 90 days with a meds authorizing provider and meeting all other requirements SEOLOGIST documented in this encounter Plan of Treatment Upcoming Encounters Date Type Department Care Team (Late st Contact Info) Description 02/12/2025 1:00 PM CDT Office Visit [facility] - Family Medicine [facility] #2 [place] [address] Ronni Simon MD #[address] [address] 03/06/2025 2:15 PM CDT Office Visit [facility] Internal Medicine - [place] [address] [place] [address] Corrina Lou, [facility] [address] [place] [address] 03/16/2025 8:30 AM CDT Hospital Encounter [facility] Gi Lab Periop 1 [place] [address] Aldo Perez MD #[address] [address] 03/16/2025 8:30 AM CDT - 03/16/2025 9:00 AM CDT Surgery [facility] Gi Lab Periop 1 [place] [address] Aldo Perez MD #[address] [address] COLONOSCOPY Scheduled Procedures Name Priority Associated Diagnoses Date/Ti me COLONOSCOPY SCREENING FOR COLON CANCER 03/16/2025 8:30 AM CDT documented as of this encounter Visit Diagnoses Not on filedocumented in this encounter Additional Health Concerns Assessment Noted Time PHQ-9 Depression Total Score: 0 04/22/20 20 1:00 PM CDT documented as of this encounter Care Teams [place] Attorney Relationship Specialty Start Date End Date Ronni Simon MD #2 [place] [address] PCP - General Family Medicine 09/12/15 documented as of this encounter
--- OUTSIDE RECORDS SUMMARY | 2024-12-15 12:40 | XMS_ITS | Encounter Summary ---
Author Organization [facility] Address [address] [place] [address] Phone Care Team Providers Care Voice And Data Technician Name Role Phone Ronni Simon MD Primary Care Provider [phone]- [phone] Reason for Visit * Reason Comments Medication Refill Encounter Details Date Type Department Care Team (Late st Contact Info) Description 07/12/2022 Refill [facility] #2 [place] [address] Ronni Simon MD #[address] [address] Medication Refill Social History Tobacco Use Types Packs/Day Years Used Date Smoking Tobacco: Former Cigarettes 1.5 14.1 1 11/13/1962 - 1977 Smokeless Tobacco: Never Comments:Started age of 13 Alcohol Use Standard Drinks/Week Comments No 0 (1 standard drink = 0.6 oz pur e alcohol) PHQ-2 Answer Date Recorded Total Score - Questions 1-9 0 05/0 01/2022 Sexually Active Control Partners Comments Not Currently Female Sex and Gender Information Value Date Recorded Sex Assigned at Not on file Legal Sex Male 10:17 PM CDT Gender Identity Not on file Sexual Orientation Not on file documented as of this encounter Miscellaneous Notes * Telephone Encounter - Anika Cox RN - 07/13/2022 8:19 AM CDT PDMP 06/05/22 Medication failed the protocol, provider to review and approve the medication order if appropriate. Requested Prescriptions Pending Prescriptions Disp Refills zolpidem (AMBIEN) 10 MG Tablet [Pharmacy Med Name: Zolpidem Tartrate 10 MG Oral Tablet] 30 Tablet Sig: TAKE 1 TABLET BY MOUTH AT NIGHT NEEDED FOR SLEEP Not Delegated - Off Protocol Failed - 07/12/2022 5:06 PM Failed - This refill cannot be delegated Passed - Visit with relevant provider in past 12 months or upcoming 90 days Recent Visits Date Type Provider Dept 03/01/22 Office Visit Ronni Simon MD [facility] 08/22/21 Office Visit Ronni Simon MD [facility] Showing recent visits within past 365 days and meeting all other requirements Future Appointments Date Type Provider Dept 09/04/22 Appointment Ronni Simon MD [facility] Showing future appointments within next 90 days and meeting all other requirements amLODIPine (NORVASC) 5 MG Tablet [Pharmacy Med Name: amLODIPine Besylate 5 MG Oral Tablet] 160 Tablet 3 Sig: TAKE 1 TABLET BY MOUTH TWICE DAILY Calcium-Channel Blockers Protocol Passed - 07/12/2022 5:07 PM Passed - BP on record in the past year Clinician-entered: BP Readings from Last 3 Encounters: 03/01/22 126/80 09/13/21 124/74 08/22/21 112/68 Patient-entered: No data recorded Passed - Visit with relevant provider in past 12 months or upcoming 90 days Recent Visits Date Type Provider Dept 03/01/22 Office Visit Ronni Simon MD [facility] 08/22/21 Office Visit Ronni Simon MD [facility] Showing recent visits within past 365 days and meeting all other requirements Future Appointments Date Type Provider Dept 09/04/22 Appointment Ronni Simon MD [facility] Showing future appointments within next 90 days and meeting all other requirements documented in this encounter Plan of Treatment Upcoming Encounters Date Type Department Care Team (Late st Contact Info) Description 02/12/2025 1:00 PM CDT Office Visit [facility] Family [facility] #2 [place] [address] Ronni Simon MD #[address] [address] 03/06/2025 2:15 PM CDT Office Visit [facility] Internal Medicine - [place] [address] [address] Corrina Lou, [facility] [address] [place] [address] 03/16/2025 8:30 AM CDT Hospital Encounter [facility] Gi Lab Periop 1 [place] [address] Aldo Perez MD #[address] [address] 03/16/2025 8:30 AM CDT - 03/16/2025 9:00 AM CDT Surgery [facility] Gi Lab Periop 1 [place] [address] Aldo Perez MD #[address] [address] COLONOSCOPY Scheduled Procedures Name Priority Associated Diagnoses Date/Ti me COLONOSCOPY SCREENING FOR COLON CANCER 03/16/2025 8:30 AM CDT documented as of this encounter Visit Diagnoses Diagnosis Insomnia, unspecified type documented in this encounter Additional Health Concerns Assessment Noted Time PHQ-9 Depression Total Score: 0 01/06/20 21 9:00 AM ASSET PROTECTION DETECTIVE documented as of this encounter Care Teams Voice And Data Technician Relationship Specialty Start Date End Date Ronni Simon MD #[address] [address] PCP - General Family Medicine 09/12/15 documented as of this encounter
--- OUTSIDE RECORDS SUMMARY | 2024-12-15 12:40 | XMS_ITS | Encounter Summary ---
Author Organization [facility] Address [address] [place] [address] Phone Care Team Providers Care Stripper Cutter Machine Name Role Phone Ronni Simon MD Primary Care Provider +1- [phone] Reason for Visit * Reason Comments Medication Refill Encounter Details Date Type Department Care Team (Late st Contact Info) Description 02/23/2021 Refill [facility] #2 [place] [address] Ronni Simon MD #[address] [address] Medication Refill Social History Tobacco Use Types [...] have Coronavirus / COVID-19? No / Unsure 02/08/2021 10:39 AM CDT documented as of this encounter Miscellaneous Notes * Telephone Encounter - Alexa Raman RN - 02/25/2021 3:15 PM CDT Mocavohart message sent to patient regarding outstanding labs Medication failed the protocol, provider to review and approve the medication order if appropriate. Requested Prescriptions Pending Prescriptions Disp Refills pravastatin (PRAVACHOL) 80 MG Tablet [Pharmacy Med Name: PRAVASTATIN SOD 80MG TABLET] 90 Tablet 0 Sig: TAKE 1 TABLET BY MOUTH IN THE EVENING Hmg CoA Reductase Inhibitors Protocol Failed - 02/25/2021 9:45 AM Failed - Lipid panel in past 12 months LDL Date Value Ref Range Status 01/02/2020 98 5 - 130 mg/dL Final HDL CHOLESTEROL Date Value Ref Range Status 01/02/2020 30.6 (L) >40 mg/dL Final CHOLESTEROL Date Value Ref Range Status 01/02/2020 157 <=200 mg/dL Final TRIGLYCERIDES Date Value Ref Range Status 01/02/2020 140 <150 mg/dL Final VLDL Date Value Ref Range Status 01/02/2020 28 5 - 55 mg/dL Final CHOL/HDL RATIO Date Value Ref Range Status 01/02/2020 5.1 (H) 0.0 - 4.4 Final NON-HDL CHOLESTEROL Date Value Ref Range Status 01/02/2020 126.4 <130 mg/dL Final Passed - Visit with relevant provider [...] requirements Future Appointments Date Type Provider Dept 04/13/21 Appointment Ronni Simon MD [facility] Showing future appointments within next 90 days and meeting all other requirements * Telephone Encounter - Tamera Mcfadden CMA - 02/25/2021 9:45 AM CDT Bozuko message sent to patient. * Telephone Encounter - Alexa Raman RN - 02/24/2021 12:14 PM CDT Patient has outstanding lab orders including Lipid documented in this encounter Plan of Treatment Upcoming Encounters Date Type Department Care Team (Late st Contact Info) Description 02/12/2025 1:00 PM CDT Office Visit [facility] - Family [facility] #2 [place] [address] Ronni Simon MD #2 [facility] [address] [place] [address] 03/06/2025 2:15 PM CDT Office Visit [facility] - Internal Medicine [facility] [address] [place] [address] Corrina Lou, [facility] [address] [place] [address] 03/16/2025 8:30 AM CDT [facility] 1 [place] [address] Aldo Perez MD #2 [facility] [address] [place] [address] 03/16/2025 8:30 AM CDT - 03/16/2025 9:00 AM CDT [facility] 1 [place] [address] Adlo Perez MD #2 [facility] [address] [place] [address] COLONOSCOPY Scheduled Procedures Name Priority Associated Diagnoses Date/Ti me COLONOSCOPY SCREENING FOR COLON CANCER 03/16/2025 8:30 AM CDT documented as of this encounter Visit Diagnoses Not on filedocumented in this encounter Additional Health Concerns Assessment Noted Time PHQ-9 Depression Total Score: 0 01/06/20 21 9:00 AM YARN SALVAGER documented as of this encounter Care Teams Stripper Cutter Machine Relationship Specialty Start Date End Date Ronni Simon MD #2 [facility] [address] [place] [address] PCP - General Family Medicine 09/12/15 documented as of this encounter
--- OUTSIDE RECORDS SUMMARY | 2024-12-15 12:40 | XMS_ITS | Encounter Summary ---
Author Organization [facility] Address [address] [place] [address] Phone Care Team Providers Care Sliding Joint Maker Name Role Phone Ronni Simon MD Primary Care Provider +1- [phone] Reason for Visit * Reason Comments Medication Refill Encounter Details Date Type Department Care Team (Late st Contact Info) Description 07/09/2021 Refill [facility] [address] [place] [address] Ronni Simon MD #[address] [address] Medication Refill Social History Tobacco [...] Miscellaneous Notes * Telephone Encounter - Alexa Raman, RN - 07/11/2021 1:53 PM CDT Medication failed the protocol, provider to review and approve the medication order if appropriate. Requested Prescriptions Pending Prescriptions Disp Refills losartan (COZAAR) 50 MG Tablet [Pharmacy Med Name: Losartan Potassium 50 MG Oral Tablet] 180 Tablet3 Sig: TAKE 1 TABLET BY MOUTH TWICE DAILY ARB Protocol Failed - 07/09/2021 9:30 PM Failed - Serum potassium on record in past 12 months POTASSIUM Date Value Ref Range Status 01/02/2020 4.5 3.5 - 5.1 mmol/L Final Failed - GFR on record in past 12 months GFR, EST. NONAFRICAN Date Value Ref Range Status 01/02/2020 >60 >=60 Final Passed - BP on record in the past year Clinician-entered: BP Readings from Last 3 Encounters: 02/08/21 128/80 01/05/21 124/68 10/06/20 126/70 Patient-entered: No data recorded Passed - Visit with relevant provider in past year or upcoming 90 days Recent Visits Date Type Provider Dept 02/08/21 Office Visit Ronni Simon MD [facility] 01/05/21 Office Visit Ronni Simon MD [facility] 10/06/20 Office Visit Ronni Simon MD [facility] 07/27/20 [facility] Showing recent visits within past 365 days and meeting all other requirements Future Appointments No visits were found meeting these conditions. Showing future appointments within next 90 days and meeting all other requirements documented in this encounter Plan of Treatment Upcoming Encounters Date Type Department Care Team (Late st Contact Info) Description 02/12/2025 1:00 PM CDT Office Visit [facility] - Family Medicine [facility] #2 [place] [address] Ronni Simon MD #[address] [address] 03/06/2025 2:15 PM CDT Office Visit [facility] Medical [facility] - Internal Medicine [facility] [address] [place] [address] Corrina Lou, PAC [address] [place] [address] 03/16/2025 8:30 AM CDT [facility] Per[facility] 1 [place] [address] Aldo Perez MD #[address] [address] 03/16/2025 8:30 AM CDT - 03/16/2025 9:00 AM CDT [facility] 1 [place] [address] Aldo Perez MD #[address] [address] COLONOSCOPY Scheduled Procedures Name Priority Associated Diagnoses Date/Ti me COLONOSCOPY SCREENING FOR COLON CANCER 03/16/2025 8:30 AM CDT documented as of this encounter Visit Diagnoses Not on filedocumented in this encounter Additional Health Concerns Assessment Noted Time PHQ-9 Depression Total Score: 0 01/06/20 21 9:00 AM DRAWER UPFITTER documented as of this encounter Care Teams Sliding Joint Maker Relationship Specialty Start Date End Date Ronni Simon MD #[address] [address] PCP - General Family Medicine 09/12/15 documented as of this encounter
--- OUTSIDE RECORDS SUMMARY | 2024-12-15 12:40 | XMS_ITS | Encounter Summary ---
Author Organization [facility] Address [address] [facility] [place] [address] Phone Care Team Providers Care Parts Delivery Driver Name Role Phone Ronni Simon MD Primary Care Provider +1- [phone] Reason for Visit * Reason Comments Medication Refill Encounter Details Date Type Department Care Team (Late st Contact Info) Description 05/30/2021 Refill [facility] [address] [place] [address] Ronni Simon MD #[address] [address] Medication Refill Social History Tobacco [...] encounter Miscellaneous Notes * Telephone Encounter - Mary Dowell RN - 05/31/2021 2:57 PM CDT Medication failed the protocol, provider to review and approve the medication order if appropriate. Requested Prescriptions Pending Prescriptions Disp Refills pravastatin (PRAVACHOL) 80 MG Tablet [Pharmacy Med Name: PRAVASTATIN SOD 80MG TABLET] 90 Tablet 3 Sig: TAKE 1 TABLET BY MOUTH IN THE EVENING Hmg CoA Reductase Inhibitors Protocol Failed - 05/31/2021 2:57 PM Failed - Lipid panel in past 12 [...] Dept 02/08/21 Office Visit Ronni Simon MD [facility] 01/05/21 Office Visit Ronni Simon MD [facility] 10/06/20 Office Visit Ronni Simon MD [facility] 07/27/20 [facility] Showing recent visits within past 365 days and meeting all other requirements Future Appointments No visits were found meeting these conditions. Showing future appointments within next 90 days and meeting all other requirements documented in this encounter Plan of Treatment Upcoming Encounters Date Type Department Care Team (Late st Contact Info) Description 02/12/2025 1:00 PM CDT Office Visit [facility] Medical Group - Family Medicine - [place] [address] [place] [address] Ronni Simon MD [address] [address] 03/06/2025 2:15 PM CDT [facility] Internal Medicine - [place] [address] [place] [address] Corrina Lou, PAC [address] [place] [address] 03/16/2025 8:30 AM CDT [facility] 1 [place] [address] Aldo Perez MD #[address] [address] 03/16/2025 8:30 AM CDT - 03/16/2025 9:00 AM CDT [facility] 1 [place] [address] Aldo Perez MD #[address] [address] COLONOSCOPY Scheduled Procedures Name Priority Associated Diagnoses Date/Ti me COLONOSCOPY SCREENING FOR COLON CANCER 03/16/2025 8:30 AM CDT documented as of this encounter Visit Diagnoses Not on filedocumented in this encounter Additional Health Concerns Assessment Noted Time PHQ-9 Depression Total Score: 0 01/06/20 21 9:00 AM FELLER HAND documented as of this encounter Care Teams Parts Delivery Driver Relationship Specialty Start Date End Date Ronni Simon MD #[address] [address] PCP - General Family Medicine 09/12/15 documented as of this encounter
--- OUTSIDE RECORDS SUMMARY | 2024-12-15 12:40 | XMS_ITS | Referral Summary ---
Author Organization [facility] Address [address] [place] [address] Care Team Providers Care Heel Slugger Name Role Phone Unavailable Primary Care Provider Unavailabl e Source Comments [facility],non-owned Affiliates and Associated Physician Practices is amultiple site organization consisting of ambulatory clinics and hospital sitesin [place], [place], [place] and [place]. This disclosure is being madepursuant to the Care Everywhere program and may not contain all information available regarding this patient. Last updated 18.[facility] Allergies No known active allergies Medications * [...] 04/22/2020 Active Ferrous Sulfate (IRON PO) Active Social History Tobacco Use Types Packs/Day Years Used Date Smoking Tobacco: Former Cigarettes 0.5 13 1 5 - 1977 Smokeless Tobacco: Never Alcohol Use [...] 03/21/2021 11:51 AM CDT Plan of Treatment Not on file
--- OUTSIDE RECORDS SUMMARY | 2024-12-15 12:40 | XMS_ITS | Continuity of Care Document ---
Author Organization [facility] Address [address] [place] [address] Phone Care Team Providers Care Agricultural Research Technologist Name Role Phone Torito TEJADA, Sean Unavailable Unavaila ble Medications Medication Instructions Dosage Effective Dates (start - stop) Status Comments diclofenac 0.1 % eye drops 1 gtt QID into operative eye for four weeks following surgery, then stop - Active ketorolac 0.4 % eye drops instill 1 drop by ophthalmic route 4 times every day into operative eye starting after surgery and continuing for 4 weeks after surgery - Active Restasis 0.05 % eye drops in a dropperette 1 gtt BID OU - Active Ok for 90 day supply. ofloxacin 0.3 % eye drops 1 gtt QID into operative eye for one week following surgery, then stop. - Active Procedures Procedure Date CATARACT SURG W/IOL, 1 STAGE CATARACT SURG W/IOL, 1 STAGE OFFICE/OUTPATIENT VISIT, NEW OPHTHALMIC BIOMETRY OPHTHALMIC BIOMETRY Advance Directives Directive Yes / No Effective Date File Name No Information Encounters Encounter Description Practice Location Reason(s) For Visit Diagnoses Date Provider Providers Copied on Encounter [facility], [address], [place], [place], [id number], [place] tel:[phone] OPH CONS[facility] [place] No Information 8 Torito Estrada. [address], [address], [place], [place], [id number], [place]. tel:[phone] Referring Provider: Sean Krishnasam y, [address], [place], [place], [id number]. tel:[phone] [facility], [address] [place] [address], [id number], tel:[phone] [address] [place] [address] No Information 8 Krishnasamy Sean. [address], [place], [place], [id number], [place]. tel:[phone] Referring Provider: Sean Hicks mariana, [address], [place], [place], [address]. tel:[phone] [facility], [address] [place] [address], [id number], [place] tel:[phone] [address] [place] [address] [facility] [place] No Information 8 Krishnasamy Sean. [address], [place], [place], [address], [place]. tel:[phone] Referring Provider: Sean Hicks mariana, [address], [place], [place], [id number]. tel:[phone] [facility], [address] [place] [address], [id number], tel:[phone] OPH CONSULT [facility] [place] No Information 8 Krishnasamy Sean. [address], [address], [id number], [place]. tel:[phone] [facility], [address] [place] [address], [id number], [place] tel:[phone] OPH CONSULT [facility] [place] No Information 8 Krishnasamy Sean. [address], [address], [address], [place]. tel:[phone] OFFICE/OUTPA TIENT VISIT, [facility], [address] [place] [address], [id number], [place] tel:[phone] [facility] No Information 8 Torito Estrada. [address], [place], [place], [address], [place]. tel:[phone] Referring Provider: Sean peña, [address], [place], [place], [id number]. tel:[phone] Family History Family Member Type Diagnosis Age At Onset No Information Payers Payer name Insurance type Covered constitution party ID Authoriza tion(s) Medicare Complete Advantage [facility] [id number] Social History Type Description Quantity Date Captured Comments Sex Male Smoking Status No Information Chief Complaint And Reason For Visit No Information Plan Of Treatment Date Type Action Status No Information History Of Present Illness Encounter Date Complaint History Of Prese nt Illness No Information Instructions Date Instruction Additional Infor mation No Information Assessments Type Assessment Date No Information
--- OUTSIDE RECORDS SUMMARY | 2024-12-15 12:40 | XMS_ITS | Encounter Summary ---
Author Organization [facility] Address [address] [place] [address] Phone Care Team Providers Care Talent Agent Name Role Phone Ronni Simon MD Primary Care Provider [phone]- [phone] Reason for Visit * Reason Comments Medication Refill Encounter Details Date Type Department Care Team (Late st Contact Info) Description 08/18/2020 Refill [facility] #2 [place] [address] Ronni Simon MD #[address] [address] Medication Refill Social History Tobacco Use Types [...] have Coronavirus / COVID-19? No / Unsure 07/27/2020 1:30 PM CDT documented as of this encounter Miscellaneous Notes * Telephone Encounter - Cecile Swartz - 08/19/2020 3:55 PM CDT Patient has requested refill too soon Medication renewal isn't due until October documented in this encounter Plan of Treatment Upcoming Encounters Date Type Department Care Team (Late st Contact Info) Description 02/12/2025 1:00 PM CDT Office Visit [facility] Family [facility] #2 [place] [address] Ronni Simon MD #[address] [address] 03/06/2025 2:15 PM CDT Office Visit [facility] Internal Medicine - [place] [address] [place] [address] Corrina Lou, [facility] [address] [place] [address] 03/16/2025 8:30 AM CDT Hospital Encounter [facility] Gi Lab Periop 1 [place] [address] Aldo Perez MD #[address] [address] 03/16/2025 8:30 AM CDT - 03/16/2025 9:00 AM CDT [facility] 1 [place] [address] Aldo Perez MD #[address] [address] COLONOSCOPY Scheduled Procedures Name Priority Associated Diagnoses Date/Ti me COLONOSCOPY SCREENING FOR COLON CANCER 03/16/2025 8:30 AM CDT documented as of this encounter Visit Diagnoses Not on filedocumented in this encounter Additional Health Concerns Assessment Noted Time PHQ-9 Depression Total Score: 0 04/22/20 20 1:00 PM CDT documented as of this encounter Care Teams Talent Agent Relationship Specialty Start Date End Date Ronni Simon MD #[address] [address] PCP - General Family Medicine 09/12/15 documented as of this encounter
--- OUTSIDE RECORDS SUMMARY | 2024-12-15 12:40 | XMS_ITS | Encounter Summary ---
Author Organization [facility] Address [address] [place] [address] Phone Care Team Providers Care Bpm Analyst Name Role Phone Ronni Simon MD Primary Care Provider [phone] Reason for Visit * Reason Comments Medication Refill Encounter Details Date Type Department Care Team (Late st Contact Info) Description 04/02/2021 Refill [facility] #2 [place] [address] Ronni Simon MD #[address] [address] Medication Refill Social History Tobacco Use Types [...] Telephone Encounter - Alexa Raman, RN - 04/04/2021 1:20 PM CDT [place] PDMP 01/10/21 Medication failed the protocol, provider to review and approve the medication order if appropriate. Requested Prescriptions Pending Prescriptions Disp Refills zolpidem (AMBIEN) 10 MG Tablet [Pharmacy Med Name: ZOLPIDEM 10MG TAB] 30 Tablet Sig: TAKE 1 TABLET BY MOUTH AT NIGHT NEEDED FOR SLEEP [facility] Not Delegated - Psychiatry: Anxiolytics/Hypnotics Failed - 04/04/2021 1:20 PM Failed - This refill cannot be delegated Passed - Valid encounter within last 6 months Past Office Visits Recent Outpatient Visits 1 month ago Chronic neck pain [facility] Ronni Hu MD 2 months ago [facility], [facility] pain [facility] Ronni Hu MD 8 months ago [facility], [facility] 11 months [facility] Chronic neck pain [facility] Ronni Hu MD Upcoming Appointments Future Appointments In 1 week Ronni Simon MD [facility] - Recent and Past Visits Recent Visits Date Type Provider Dept 02/08/21 [...] authorizing provider and meeting all other requirements documented in this encounter Plan of Treatment Upcoming Encounters Date Type Department Care Team (Late st Contact Info) Description 02/12/2025 1:00 PM CDT Office Visit [facility] Family [facility] #2 [place] [address] Ronni Simon MD #2 [facility] [address] [place] [address] 03/06/2025 2:15 PM CDT Office Visit [facility] Internal Medicine - [place] [address] [place] [address] Corrina Lou, [facility] [address] [facility] [address] [place] [address] 03/16/2025 8:30 AM CDT Hospital Encounter [facility] Gi Lab Periop 1 [place] [address] Aldo Perez MD #[address] [address] 03/16/2025 8:30 AM CDT - 03/16/2025 9:00 AM CDT Surgery [facility] Gi Lab Periop 1 [place] [address] Aldo Perez MD #[address] [address] COLONOSCOPY Scheduled Procedures Name Priority Associated Diagnoses Date/Ti me COLONOSCOPY SCREENING FOR COLON CANCER 03/16/2025 8:30 AM CDT documented as of this encounter Visit Diagnoses Diagnosis Insomnia, unspecified type documented in this encounter Additional Health Concerns Assessment Noted Time PHQ-9 Depression Total Score: 0 01/06/20 21 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
--- OUTSIDE RECORDS SUMMARY | 2024-12-15 12:40 | XMS_ITS | Encounter Summary ---
Author Organization [facility] Address [address] [place] [address] Phone Care Team Providers Care Optics Test Technician Name Role Phone Ronni Simon MD Primary Care Provider [phone]- [phone] Reason for Visit * Reason Comments Medication Refill Encounter Details Date Type Department Care Team (Late st Contact Info) Description 09/27/2020 Refill [facility] #2 [place] [address] Ronni Simon MD #[address] [address] Medication Refill Social History Tobacco Use Types [...] have Coronavirus / COVID-19? 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 Requested Prescriptions Pending Prescriptions Disp Refills zolpidem (AMBIEN) 10 MG Tablet [Pharmacy Med Name: ZOLPIDEM 10MG TAB] 30 Tab Sig: TAKE 1 TABLET BY MOUTH AT NIGHT NEEDED FOR SLEEP Not Delegated - Psychiatry: Anxiolytics/Hypnotics Failed - 09/27/2020 12:51 PM Failed - This refill cannot be delegated Passed - Valid encounter within last 6 months Past Office Visits Recent Outpatient Visits 2 months ago Hypertension, essential [facility] Medical [facility] Family 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 - Recent and Past Visits Recent Visits Date Type Provider Dept 07/27/20 Office Visit Ronni Simon MD [facility] 04/22/20 Office Visit Ronni Simon MD [facility] 03/25/20 Office Visit Ronni Simon MD [facility] 12/18/19 Office Visit Ronni Simon MD [facility] 09/18/19 Office Visit Carlos Winslow APN, RAD[facility] 08/06/19 Office Visit Ronni Simon MD [facility] 07/01/19 Office Visit Ronni Simon MD [facility] Showing recent visits within past 460 days with a meds authorizing provider and meeting all other requirements Future Appointments Date Type Provider Dept 11/01/20 Appointment Ronni Simon MD [facility] Showing future appointments within next 90 days with a meds authorizing provider and meeting all other requirements DENTIAL DOOR UNIT INSTALLER documented in this encounter Plan of Treatment Upcoming Encounters Date Type Department Care Team (Late st Contact Info) Description 02/12/2025 1:00 PM CDT Office Visit [facility] Family [facility] #2 [place] [address] Ronni Simon MD #[address] [address] 03/06/2025 2:15 PM CDT Office Visit [facility] - Internal Medicine - [place] [address] [address] Corrina Lou, [facility] [address] [place] [address] 03/16/2025 8:30 AM CDT Hospital Encounter [facility] Gi Lab Periop 1 [place] [address] Aldo Perez MD #[address] [address] 03/16/2025 8:30 AM CDT - 03/16/2025 9:00 AM CDT Surgery [facility] Gi Lab Periop 1 [place] [address] Aldo Perez MD #[address] [address] COLONOSCOPY Scheduled Procedures Name Priority Associated Diagnoses Date/Ti me COLONOSCOPY SCREENING FOR COLON CANCER 03/16/2025 8:30 AM CDT documented as of this encounter Visit Diagnoses Not on filedocumented in this encounter Additional Health Concerns Assessment Noted Time PHQ-9 Depression Total Score: 0 04/22/20 20 1:00 PM CDT documented as of this encounter Care Teams Optics Test Technician Relationship Specialty Start Date End Date Ronni Simon MD #2 [place] [id number] PCP - General Family Medicine 09/12/15 documented as of this encounter
--- OUTSIDE RECORDS SUMMARY | 2024-12-15 12:40 | XMS_ITS | Encounter Summary ---
Author Organization [facility] Address [address] [place] [address] Phone Care Team Providers Care Human Resources Clerk Name Role Phone Ronni Simon MD Primary Care Provider [phone]- [phone] Reason for Visit * Reason Comments Medication Refill Encounter Details Date Type Department Care Team (Late st Contact Info) Description 07/06/2020 Refill [facility] #2 [place] [address] Ronni Simon MD #[address] [address] Medication Refill Social History Tobacco Use Types [...] have Coronavirus / COVID-19? No / Unsure 06/08/2020 8:43 AM CDT documented as of this encounter Miscellaneous Notes * Telephone Encounter - Willow Sidhu RN - 07/06/2020 9:55 PM CDT Medication failed the protocol, provider to review and approve the medication order Requested Prescriptions Pending Prescriptions Disp Refills zolpidem (AMBIEN) 10 MG Tablet [Pharmacy Med Name: ZOLPIDEM 10MG TABLETS] 30 Tab 0 Sig: TAKE 1 TABLET BY MOUTH NIGHTLY NEEDED FOR SLEEP Not Delegated - Psychiatry: Anxiolytics/Hypnotics Failed - 07/06/2020 9:43 AM Failed - This refill cannot be delegated Passed - Valid encounter within last 6 months Past Office Visits Recent Outpatient Visits 2 months ago Chronic [facility] Ronni Simon MD 3 months ago [facility] Ronni Simon MD 6 months ago Hyperlipidemia, unspecified hyperlipidemia type [facility] Ronni Simon MD 9 months ago Injury of right foot, initial encounter [facility] Carlos Winslow APN, CLINICAL PROJECT COORDINATOR 11 months ago Right knee pain, unspecified chronicity [facility] Ronni Simon MD Upcoming Appointments Future Appointments In 3 weeks [facility], [facility] 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 - Recent and Past Visits Recent Visits Date Type Provider Dept 04/22/20 Office Visit Ronni Simon MD [facility] 03/25/20 Office Visit Ronni Simon MD [facility] 12/18/19 Office Visit Ronni Simon MD [facility] 09/18/19 Office Visit Carlos Winslow APN, CLINICAL PROJECT COORDINATOR [facility] 08/06/19 Office Visit Ronni Simon MD [facility] 07/01/19 Office Visit Ronni Simon MD [facility] Showing recent visits within past 460 days with a meds authorizing provider and meeting all other requirements Future Appointments Date Type Provider Dept 07/27/20 Appointment Ronni Simon MD [facility] Showing future appointments within next 90 days with a meds authorizing provider and meeting all other requirements documented in this encounter Plan of Treatment Upcoming Encounters Date Type Department Care Team (Late st Contact Info) Description 02/12/2025 1:00 PM CDT Office Visit [facility] Family [facility] #2 [place] [address] Ronni Simon MD #[address] [address] 03/06/2025 2:15 PM CDT Office Visit [facility] Internal Medicine [facility] [address] [place] [address] Corrina Lou, [facility] [address] [place] [address] 03/16/2025 8:30 AM CDT Hospital Encounter [facility] Gi Lab Periop 1 [place] [address] Aldo Perez MD #[address] [address] 03/16/2025 8:30 AM CDT - 03/16/2025 9:00 AM CDT Surgery [facility] Gi Lab Periop 1 [place] [address] Aldo Perez MD #[address] [address] COLONOSCOPY Scheduled Procedures Name Priority Associated Diagnoses Date/Ti me COLONOSCOPY SCREENING FOR COLON CANCER 03/16/2025 8:30 AM CDT documented as of this encounter Visit Diagnoses Not on filedocumented in this encounter Additional Health Concerns Assessment Noted Time PHQ-9 Depression Total Score: 0 04/22/20 20 1:00 PM CDT documented as of this encounter Care Teams Human Resources Clerk Relationship Specialty Start Date End Date Ronni Simon MD #2 [place] [id number] PCP - General Family Medicine 09/12/15 documented as of this encounter
--- OUTSIDE RECORDS SUMMARY | 2024-12-15 12:40 | XMS_ITS | Encounter Summary ---
Author Organization [facility] Address [address] [place] [address] Phone Care Team Providers Care Extrusion Supervisor Name Role Phone Selina Rosas MD Primary Care Provider [phone]- [phone] Reason for Visit * Reason Comments Medication Refill Encounter Details Date Type Department Care Team (Late st Contact Info) Description 08/03/2020 Refill [facility] #2 [place] [address] Selina Rosas MD #[address] [address] Medication Refill Social History Tobacco Use Types [...] encounter Miscellaneous Notes * Telephone Encounter - Sherice Whitten RN - 08/04/2020 11:55 AM CDT Routing to provider per protocol as medication(s) can not be signed by a nurse for approval. Medication Dispense History (from 04/06/2020 to 08/03/2020) Zolpidem Tartrate Dispensed Written Strength Quantity Refills Days Supply Provider Pharmacy ZOLPIDEM TARTRATE 07/12/2020 07/10/2020 10MG 25 0 25 , SELINA ROSAS M.D. ZOLPIDEM TARTRATE 07/08/2020 07/06/2020 10MG 5 0 5 , SELINA ROSAS M.D. [facility] ZOLPIDEM TARTRATE 04/22/2020 04/22/2020 10MG 30 0 30 , SELINA ROSAS M.D.GRHAKAN [facility] External Sources Source Last Checked for Updates Status [facility] 08/03/2020 11:27 AM History Response Filed documented in this encounter Plan of Treatment Upcoming Encounters Date Type Department Care Team (Late st Contact Info) Description 02/12/2025 1:00 PM CDT Office Visit [facility] - Family [facility] #2 [place] [address] Selina Rosas MD #[address] [address] 03/06/2025 2:15 PM CDT Office Visit [facility] Medical [facility] - Internal Medicine - [place] [address] [place] [address] Corrina Lou, [facility] [address] [place] [address] 03/16/2025 8:30 AM CDT [facility] 1 [place] [address] Aldo Perez MD #[address] [address] 03/16/2025 8:30 AM CDT - 03/16/2025 9:00 AM CDT Surgery [facility] Gi Lab Periop 1 [place] [address] Aldo Perez MD #[address] [address] COLONOSCOPY Scheduled Procedures Name Priority Associated Diagnoses Date/Ti mi COLONOSCOPY SCREENING FOR COLON CANCER 03/16/2025 8:30 AM CDT documented as of this encounter Visit Diagnoses Not on filedocumented in this encounter Additional Health Concerns Assessment Noted Time PHQ-9 Depression Total Score: 0 04/22/20 20 1:00 PM CDT documented as of this encounter Care Teams Extrusion Supervisor Relationship Specialty Start Date End Date Selina Rosas MD #[address] [address] PCP - General Family Medicine 09/12/15 documented as of this encounter
[2024-12-15 12:42] LABS: MRSA (PCR) NOT DETECTED (NOT DETECTE)
== END 2024-12-15 09:48 | disposition home or self-care (01) ==
LOC: ANHSURGERY 09:52
PROVIDERS: PCP Family Medicine; Visit Provider Orthopaedic Surgery
DX: Z01.818 Encounter for other preprocedural examination (principal); M17.11 Unilateral primary osteoarthritis, right knee
CPT/HCPCS: 80307; 82040; 82565; 82947; 83036; 85025; 87641

== ENCOUNTER 2025-01-06 00:44 | Day surgery (SDC) | payer OTHER, SELFPAY ==
--- NOTE | 2024-12-15 09:53 | PC.NURSE ---
Report to the Outpatient Waiting Room, entrance under the green pavilion located off [facility], at time _8 AM on date __01/06/25 . Planned Procedure Time: __10 AM .? Time changes happen often and if your time is changed the preop area will call you the afternoon before. - You and your visitor will be asked to self-screen and do not enter if you have any COVID symptoms. Please call surgeon if you need to reschedule. - A mask is optional within the hospital at this time. Patients may have clear liquids (water, carbonated beverages, clear teas, apple juice) until 3 hours prior to surgery( 7AM) with a maximum of 20 ounces. - No food from midnight until time of surgery and no smoking, or chewing tobacco (or any form of nicotine). No chewing gum, candy or mints. - Infants may have breast milk until 4 hours before surgery, infant formula 6 hours prior to surgery. - Children will be allowed to drink immediately following surgery.? If applicable, please bring a bottle or sippy cup to assist with drinking. Juice, water, soda, and popsicles are readily available.? For infants on formula, please bring formula the day of surgery.? Pacifiers are allowed. Take only the following medications with a SIP of water on the morning of surgery: __AMLODIPINE,LEVOTHYROXINE DO NOT STOP ANY OF YOUR OTHER PRESCRIPTION MEDICATIONS PRIOR TO SURGERY EXCEPT THE FOLLOWING Hold all vitamins and supplements for 3 days per anesthesiologist.LAST DOSE 01/02/25 Medications to discontinue per physician ___PLAVIX HOLD [address] RIVERS Date to take last dose____12/29/24 Please no make-up, nail setswana, hairspray, perfume, deodorant, or body powder the day of surgery.? No jewelry (including any body piercings) or valuables the day of surgery, leave them at home.? Please take a shower or bath the night before, or the morning of, surgery with an antibacterial soap.? Wear comfortable, loose fitting clothing.? Children are encouraged to wear pajamas. - Jewelry must be removed prior to entering the operating room.? Rings and piercings that are not removed may be cut off. - The hospital will not accept responsibility for valuables.? - Please leave all valuables, including medications, at home the day of surgery. If you are going home after surgery, a licensed automobile drivers must drive you home.? - NO public transportation without another adult if you receive anesthesia. - We recommend that an adult stay with you for 24 hours following discharge. - We also recommend that you do not drive, make important decision, drink alcoholic beverages, or take any drugs that were not prescribed by your health care provider for at least 24 hours after your discharge time. For Pediatric surgeries, we recommend two adults accompany the child home. Follow any additional instructions given to you from your surgeon. VERBAL AND WRITTEN instructions given to __PATIENT AND BRYAN and asked if any additional questions and then verbalized understanding. Patient advised to call surgeon office or pre surgery nurse liaison [phone] if any additional questions.
[2024-12-15 09:55] VITALS: BMI 30.2
[2024-12-15 10:46] VITALS: BP 160/80; PULSE 65; RESP 18; TEMP 36.9; O2SAT 98
[2025-01-06] VITALS (12 sets, daily range): BP systolic 121–160; BP diastolic 59–80; PULSE 62–77; RESP 9–16; TEMP 36.1–36.3; O2SAT 92–99
--- NOTE | ~2025-01-06 | XR_ITS ---
EXAMINATION: [id number] DATE: 01/06/2025 11:08 INDICATION: Right total knee arthroplasty. Postop. TECHNIQUE: 2 views of right knee were obtained. COMPARISON: Right knee radiographs 09/12/2024 FINDINGS: There is a total right knee arthroplasty in near-anatomic alignment with patellar resurfaci ng. No fracture. There is gas in the joint and soft tissues, consistent with recent surgery. IMPRESSION: 1. Total right knee arthroplasty in near-anatomic alignment. Reviewed, dictated and finalized at location B.
--- OUTSIDE RECORDS SUMMARY | 2025-01-06 00:46 | XMS_ITS | Encounter Summary ---
Author Organization [facility] Address [address] [facility] [place] [address] Phone Care Team Providers Care Tungsten Refiner Name Role Phone Ronni Simon MD Primary Care Provider +1- [phone] Reason for Visit * Reason Comments Medication Refill Encounter Details Date Type Department Care Team (Late st Contact Info) Description 05/30/2021 Refill [facility] [address] [place] [address] Ronni Simon MD #[address] [address] Medication Refill Social History Tobacco [...] 02/08/21 Office Visit Ronni Simon MD [facility] [place] 01/05/21 Office Visit Ronni Simon MD [facility] [place] 10/06/20 Office Visit Ronni Simon MD [facility] 07/27/20 Office Visit Ronni Simon MD [facility] Showing recent visits within past 365 days and meeting all other requirements Future Appointments No visits were found meeting these conditions. Showing future appointments within next 90 days and meeting all other requirements documented in this encounter Plan of Treatment Upcoming Encounters Date Type Department Care Team (Late st Contact Info) Description 02/12/2025 1:00 PM CDT Office Visit [facility] Medical [facility] - Family Medicine - [place] #[address] [place] [address] Ronni Simon MD #[address] [address] 03/06/2025 2:15 PM CDT Office Visit [facility] Medicine - [place] [address] [place] [address] Corrina Lou, PAC [address] [place] [address] 03/16/2025 8:30 AM CDT [facility] 1 [place] [address] Aldo Perez MD #[address] [address] 03/16/2025 8:30 AM CDT - 03/16/2025 9:00 AM CDT [facility] 1 [place] [address] Aldo Perez MD #[address] [address] COLONOSCOPY Scheduled Procedures Name Priority Associated Diagnoses Date/Ti me COLONOSCOPY SCREENING FOR COLON CANCER 03/16/2025 8:30 AM CDT documented as of this encounter Visit Diagnoses Not on filedocumented in this encounter Additional Health Concerns Assessment Noted Time PHQ-9 Depression Total Score: 0 01/06/20 21 9:00 AM 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
--- OUTSIDE RECORDS SUMMARY | 2025-01-06 00:46 | XMS_ITS | Encounter Summary ---
Author Organization [facility] Address [address] [place] [address] Phone Care Team Providers Care V/Stol Landing Signal Officer Name Role Phone Ronni Simon MD Primary Care Provider +1- [phone] Reason for Visit * Reason Comments Medication Refill Encounter Details Date Type Department Care Team (Late st Contact Info) Description 02/23/2021 Refill [facility] #2 [place] [address] Ronni Simon MD #[address] [address] Medication Refill Social History Tobacco Use Types [...] Raman RN - 02/25/2021 3:15 PM CDT ProfStreamhart message sent to patient regarding outstanding labs [...] Mcfadden CMA - 02/25/2021 9:45 AM CDT Barnacle message sent to patient. * Telephone Encounter - Alexa Raman RN - 02/24/2021 12:14 PM CDT Patient has outstanding lab orders including Lipid documented in this encounter Plan of Treatment Upcoming Encounters Date Type Department Care Team (Late st Contact Info) Description 02/12/2025 1:00 PM CDT [facility] [place] [address] Ronni Simon MD #2 [facility] [address] [place] [address] 03/06/2025 2:15 PM CDT Office Visit [facility] - Internal Medicine [facility] [address] [place] [address] Corrina Lou, [facility] [address] [place] [address] 03/16/2025 8:30 AM CDT Hospital [facility] 1 [place] [address] Aldo Perez MD #2 [facility] [address] [place] [address] 03/16/2025 8:30 AM CDT - 03/16/2025 9:00 AM CDT Surgery [facility] 1 [place] [address] Aldo Perez MD #2 [facility] [address] [place] [address] COLONOSCOPY Scheduled Procedures Name Priority Associated Diagnoses Date/Ti me COLONOSCOPY SCREENING FOR COLON CANCER 03/16/2025 8:30 AM CDT documented as of this encounter Visit Diagnoses Not on filedocumented in this encounter Additional Health Concerns Assessment Noted Time PHQ-9 Depression Total Score: 0 01/06/20 21 9:00 AM VOIP ENGINEER documented as of this encounter Care Teams V/Stol Landing Signal Officer Relationship Specialty Start Date End Date Ronni Simon MD #2 [facility] [address] [place] [address] PCP - General Family Medicine 09/12/15 documented as of this encounter
--- OUTSIDE RECORDS SUMMARY | 2025-01-06 00:46 | XMS_ITS | Encounter Summary ---
Author Organization [facility] Address [address] [facility] [place] [address] Phone Care Team Providers Care Valet Cashier Name Role Phone Ronni Simon MD Primary Care Provider +1- [phone] Encounter Details Date Type Department Care Team (Late st Contact Info) Description 09/07/2020 Telephone [facility] Oncology Services [address] [place] [address] Mendel Dillard MD [address] [place], [place] [id number] Social History Tobacco Use Types Packs/Day Years [...] COVID-19? 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 Dillard's May 2020 note. PMENT OPERATOR WAREHOUSE documented in this encounter Plan of Treatment Upcoming Encounters Date Type Department Care Team (Late st Contact Info) Description 02/12/2025 1:00 PM CDT Office Visit [facility] Family Medicine [facility] #2 [place] [address] Ronni Simon MD #2 [facility] [address] [place] [address] 03/06/2025 2:15 PM CDT Office Visit [facility] Internal Medicine [facility] [address] [place] [address] Corrina Lou, [facility] [address] [place] [address] 03/16/2025 8:30 AM CDT Hospital Encounter [facility] Gi Lab Periop 1 [place] [address] Aldo Perez MD #[address] [address] 03/16/2025 8:30 AM CDT - 03/16/2025 9:00 AM CDT [facility] 1 [place] [address] Aldo Perez MD #[address] [address] COLONOSCOPY Scheduled Procedures Name Priority Associated Diagnoses Date/Ti me COLONOSCOPY SCREENING FOR COLON CANCER 03/16/2025 8:30 AM CDT documented as of this encounter Visit Diagnoses Not on filedocumented in this encounter Additional Health Concerns Assessment Noted Time PHQ-9 Depression Total Score: 0 04/22/20 20 1:00 PM CDT documented as of this encounter Care Teams Valet Cashier Relationship Specialty Start Date End Date Ronni Simon MD #[address] [address] PCP - General Family Medicine 09/12/15 documented as of this encounter
--- OUTSIDE RECORDS SUMMARY | 2025-01-06 00:46 | XMS_ITS | Encounter Summary ---
Author Organization [facility] Address [address] [place] [address] Phone Care Team Providers Care It Programmer Name Role Phone Ronni Simon MD Primary Care Provider +1- [phone] Encounter Details Date Type Department Care Team (Late Contact Info) Description 04/03/2024 [facility] 1 [place] [address] Eddi Skaggs MD #1 [place] [address] Social History Tobacco Use Types Packs/Day Years [...] Office Visit [facility] - Family [facility] #2 [place] [address] Ronni Simon MD #[address] [address] 03/06/2025 2:15 PM CDT Office Visit [facility] Medical [facility] - Internal Medicine - [place] [address] [place] [address] Corrina Lou, PAC [address] [place] [address] 03/16/2025 8:30 AM CDT Hospital Encounter [facility] Lab Periop 1 [place] [address] Aldo Perez MD #[address] [address] 03/16/2025 8:30 AM CDT - 03/16/2025 9:00 AM CDT Surgery [facility] Lab Periop 1 [place] [address] Aldo Perez MD #[address] [address] COLONOSCOPY Scheduled Procedures Name Priority Associated Diagnoses Date/Ti me COLONOSCOPY SCREENING FOR COLON CANCER 03/16/2025 8:30 AM CDT documented as of this encounter Visit Diagnoses Not on filedocumented in this encounter Additional Health Concerns Assessment Noted Time PHQ-9 Depression Total Score: 0 01/06/20 21 9:00 AM HEAD AUTOMATIC SAWYER documented as of this encounter Care Teams It Programmer Relationship Specialty Start Date End Date Ronni Simon MD #[address] [address] PCP - General Family Medicine 09/12/15 documented as of this encounter
--- OUTSIDE RECORDS SUMMARY | 2025-01-06 00:46 | XMS_ITS | Encounter Summary ---
Author Organization [facility] Address [address] [place] [address] Phone Care Team Providers Care Bias Cutting Machine Operator Vertical Name Role Phone Ronni Simon MD Primary Care Provider +1- [phone] Reason for Visit * Reason Comments Medication Refill Encounter Details Date Type Department Care Team (Late st Contact Info) Description 06/06/2021 Refill [facility] [address] [place] [address] Ronni Simon MD #[address] [address] Medication Refill Social History Tobacco Use Types [...] Description 02/12/2025 1:00 PM CDT Office Visit [facility] Family [facility] #2 [place] [address] Ronni Simon MD #[address] [address] 03/06/2025 2:15 PM CDT Office Visit [facility] Internal Medicine [facility] [address] [facility] [place] [address] Corrina Lou, [facility] [address] [place] [address] 03/16/2025 8:30 AM CDT Hospital Encounter [facility] Gi Lab Periop 1 [place] [address] Aldo Perez MD #[address] [address] 03/16/2025 8:30 AM CDT - 03/16/2025 9:00 AM CDT Surgery [facility] Gi Lab Periop 1 [place] [address] Aldo Perez MD #[address] [address] COLONOSCOPY Scheduled Procedures Name Priority Associated Diagnoses Date/Ti me COLONOSCOPY SCREENING FOR COLON CANCER 03/16/2025 8:30 AM CDT documented as of this encounter Visit Diagnoses Diagnosis Insomnia, unspecified type documented in this encounter Additional Health Concerns Assessment Noted Time PHQ-9 Depression Total Score: 0 01/06/20 21 9:00 AM TRIM OPERATOR documented as of this encounter Care Teams Bias Cutting Machine Operator Vertical Relationship Specialty Start Date End Date Ronni Simon MD #2 [place] [address] PCP - General Family Medicine 09/12/15 documented as of this encounter
--- OUTSIDE RECORDS SUMMARY | 2025-01-06 00:46 | XMS_ITS | Encounter Summary ---
Author Organization [facility] Address [address] [place] [address] Phone Care Team Providers Care Machine Burrer Name Role Phone Ronni Simon MD Primary Care Provider +1- [phone] Reason for Visit * Reason Comments Medication Refill Encounter Details Date Type Department Care Team (Late st Contact Info) Description 07/09/2021 Refill [facility] [address] [place] [address] Ronni Simon MD #[address] [address] Medication Refill Social History Tobacco [...] [place] 07/27/20 [facility] [place] Showing recent visits within past 365 days and meeting all other requirements Future Appointments No visits were found meeting these conditions. Showing future appointments within next 90 days and meeting all other requirements documented in this encounter Plan of Treatment Upcoming Encounters Date Type Department Care Team (Late st Contact Info) Description 02/12/2025 1:00 PM CDT Office Visit [facility] Medical Group - Family Medicine [facility] #2 [place] [address] Ronni Simon MD #[address] [address] 03/06/2025 2:15 PM CDT Office Visit [facility] Medical [facility] - Internal Medicine [facility] [address] [place] [address] Corrina Lou, PAC [address] [place] [address] 03/16/2025 8:30 AM CDT Hospital [facility] Periop 1 [place] [address] Aldo Perez MD #[address] [address] 03/16/2025 8:30 AM CDT - 03/16/2025 9:00 AM CDT Surgery [facility] Periop 1 [place] [address] Aldo Perez MD #[address] [address] COLONOSCOPY Scheduled Procedures Name Priority Associated Diagnoses Date/Ti me COLONOSCOPY SCREENING FOR COLON CANCER 03/16/2025 8:30 AM CDT documented as of this encounter Visit Diagnoses Not on filedocumented in this encounter Additional Health Concerns Assessment Noted Time PHQ-9 Depression Total Score: 0 01/06/20 21 9:00 AM PIZZA BAKER documented as of this encounter Care Teams Machine Burrer Relationship Specialty Start Date End Date Ronni Simon MD #[address] [address] PCP - General Family Medicine 09/12/15 documented as of this encounter
--- OUTSIDE RECORDS SUMMARY | 2025-01-06 00:46 | XMS_ITS | Continuity of Care Document ---
Author Organization [facility] Address [address] [address] [facility] [address] [place] [address] Phone Care Team Providers Care Artificial Marble Worker Name Role Phone Torito TEJADA, Sean Unavailable [...] Provider Providers Copied on Encounter [facility], [address], [place], [place], [id number], [place] tel:[phone] [facility] [place] No Information 8 Torito Estrada. [address], [address], [place], [place], [id number], [place]. tel:[phone] Referring Provider: Sean Krishnasam y, [address], [place], [place], [id number]. tel:[phone] [facility], [address] [place] [address], [id number], tel:[phone] [address] [place] [address] No Information 8 Krishnasamy Sean. [address], [address], [place], [place], [address], [place]. tel:[phone] Referring Provider: Sean Hicks mariana, [address], [place], [place], [id number]. tel:[phone] [facility], [address] [place] [address], [id number], [place] tel:[phone] [place] [address] [facility] [place] No Information 8 Krishnasamy Sean. [address], [address], [place], [place], [id number], [place]. tel:[phone] Referring Provider: Sean Hicks mariana, [address], [place], [place], [address]. tel:[phone] [facility], [address] [place] [address], [id number], tel:[phone] [facility] [place] No Information 8 Krishnasamy Sean. [address], [address], [id number], [place]. tel:[phone] [facility], [address] [place] [address], [id number], [place] tel:[phone] [facility] [place] No Information 8 Krishnasamy Sean. [address], [address], [id number], [place]. tel:[phone] OFFICE/OUTPA TIENT VISIT, [facility], [address] [place] [address], [id number], [place] tel:[phone] Ophth [facility] No Information 8 Torito Estrada. [address] [facility], [address], [place], [place], [id number], [place]. tel:[phone] Referring Provider: Sean peña, [address] [facility] [address], [place], [place], [id number]. tel:[phone] Family History Family Member Type Diagnosis Age At Onset No Information Payers Payer name Insurance type Covered republican ID Authoriza tion(s) Medicare Complete Ad[facility]age [facility] [id number] Social History Type Description Quantity Date [...]
--- OUTSIDE RECORDS SUMMARY | 2025-01-06 00:46 | XMS_ITS | Encounter Summary ---
Author Organization [facility] Address [address] [place] [address] Phone Care Team Providers Care Yard Inspector Name Role Phone Ronni Simon MD Primary Care Provider [phone] Reason for Visit * Reason Comments Medication Refill Encounter Details Date Type Department Care Team (Late st Contact Info) Description 12/04/2020 Refill [facility] #2 [place] [address] Ronni Simon MD #[address] [address] Medication Refill Social History Tobacco Use Types [...] Visits 2 months ago Chronic neck pain [facility] Ronni Hu MD 4 months ago Hypertension, essential [facility] 7 months ago Chronic neck pain [facility] Ronni Hu MD 8 months ago [facility] 11 months [facility] Hyperlipidemia, unspecified hyperlipidemia type [facility] Upcoming Appointments Future Appointments In 1 month Ronni Simon MD [facility]R [facility] - Recent and Past Visits Recent Visits Date Type Provider Dept 10/06/20 Office Visit Ronni Simon MD [facility] [place] 07/27/20 Office Visit Ronni Simon MD [facility] [place] 04/22/20 Office Visit Ronni Simon MD [facility] [place] 03/25/20 Office Visit Ronni Simon MD [facility] [place] 12/18/19 Office Visit Ronni Simon MD [facility] [place] 09/18/19 Office Visit Carlos Winslow APN, STRIP DEBURRER [facility] [place] Showing recent visits within past 460 days with a meds authorizing provider and meeting all other requirements Future Appointments Date Type Provider Dept 01/05/21 Appointment Ronni Simon MD [facility] [place] Showing future appointments within next 90 days with a meds authorizing provider and meeting all other requirements [facility] documented in this encounter Plan of Treatment Upcoming Encounters Date Type Department Care Team (Late st Contact Info) Description 02/12/2025 1:00 PM CDT Office Visit [facility] Family [facility] #2 [place] [address] Ronni Simon MD #2 [facility] [address] [place] [address] 03/06/2025 2:15 PM CDT Office Visit [facility] Internal Medicine - [place] [address] [place] [address] Corrina Lou, [facility] [address] [place] [address] 03/16/2025 8:30 AM CDT Hospital Encounter [facility] Gi Lab Periop 1 [place] [address] Aldo Perez MD #[address] [address] 03/16/2025 8:30 AM CDT - 03/16/2025 9:00 AM CDT [facility] 1 [place] [address] Aldo Perez MD #[address] [address] COLONOSCOPY Scheduled Procedures Name Priority Associated Diagnoses Date/Ti me COLONOSCOPY SCREENING FOR COLON CANCER 03/16/2025 8:30 AM CDT documented as of this encounter Visit Diagnoses Diagnosis Insomnia, unspecified type documented in this encounter Additional Health Concerns Assessment Noted Time PHQ-9 Depression Total Score: 0 04/22/20 20 1:00 PM CDT documented as of this encounter Care Teams Yard Inspector Relationship Specialty Start Date End Date Ronni Simon MD #2 [place] [address] PCP - General Family Medicine 09/12/15 documented as of this encounter
--- OUTSIDE RECORDS SUMMARY | 2025-01-06 00:46 | XMS_ITS | Encounter Summary ---
Author Organization [facility] Address [address] [place] [address] Phone Care Team Providers Care Full Stack Net Developer Name Role Phone Ronni Simon MD Primary Care Provider [phone] Reason for Visit * Reason Comments Medication Refill Encounter Details Date Type Department Care Team (Late st Contact Info) Description 04/02/2021 Refill [facility] #2 [place] [address] Ronni Simon MD #[address] [address] Medication Refill Social History Tobacco Use Types [...] Raman, RN - 04/04/2021 1:20 PM CDT [place] PDMP 01/10/21 Medication failed the protocol, provider [...] Visits 1 month ago Chronic neck pain [facility] Ronni Hu MD 2 months ago Insomnia, unspecified [facility] 6 months ago Chronic neck pain [facility] Ronni Hu MD 8 months ago Hypertension, essential [facility] 11 months ago Chronic neck pain [facility] Ronni Hu MD Upcoming Appointments Future Appointments In 1 week Ronni Simon MD [facility] DIRECT[facility] OF NUCLEAR MEDICINE - Recent and Past Visits Recent Visits [...] Description 02/12/2025 1:00 PM CDT Office Visit [facility] Family [facility] #2 [place] [address] Ronni Simon MD #2 [facility] [address] [place] [address] 03/06/2025 2:15 PM CDT Office Visit [facility] Internal Medicine - [place] [address] [place] [address] Corrina Lou, [facility] [address] [facility] [place] [address] 03/16/2025 8:30 AM CDT Hospital Encounter [facility] Gi Lab Periop 1 [place] [address] Aldo Perez MD #[address] [address] 03/16/2025 8:30 AM CDT - 03/16/2025 9:00 AM CDT Surgery [facility] Gi Lab Periop 1 [place] [address] Aldo Perez MD #[address] [address] COLONOSCOPY Scheduled Procedures Name Priority Associated Diagnoses Date/Ti me COLONOSCOPY SCREENING FOR COLON CANCER 03/16/2025 8:30 AM CDT documented as of this encounter Visit Diagnoses Diagnosis Insomnia, unspecified type documented in this encounter Additional Health Concerns Assessment Noted Time PHQ-9 Depression Total Score: 0 01/06/20 21 9:00 AM SWEDGER documented as of this encounter Care Teams Full Stack Net Developer Relationship Specialty Start Date End Date Ronni Simon MD #[address] [address] PCP - General Family Medicine 09/12/15 documented as of this encounter
--- OUTSIDE RECORDS SUMMARY | 2025-01-06 00:46 | XMS_ITS | Encounter Summary ---
Author Organization [facility] Address [address] [place] [address] Phone Care Team Providers Care Wrapper Stemmer Operator Name Role Phone Ronni Simon MD Primary Care Provider +1- [phone] Reason for Visit * Reason Comments Medication Refill Encounter Details Date Type Department Care Team (Late st Contact Info) Description 07/06/2021 Refill [facility] [address] [place] [phone] Ronni Simon MD #[address] [address] Medication Refill Social History Tobacco [...] [place] 07/27/20 Office [facility] Showing recent visits within past 365 days and meeting all other requirements Future Appointments No visits were found meeting these conditions. Showing future appointments within next 90 days and meeting all other requirements documented in this encounter Plan of Treatment Upcoming Encounters Date Type Department Care Team (Late st Contact Info) Description 02/12/2025 1:00 PM CDT Office Visit [facility] - Family [facility] #2 [place] [address] Ronni Simon MD #[address] [address] 03/06/2025 2:15 PM CDT Office [facility] Medical [facility] - Internal Medicine [facility] [address] [place] [address] Corrina Lou, [facility] [address] [place] [address] 03/16/2025 8:30 AM CDT [facility] 1 [place] [address] Aldo Perez MD #[address] [address] 03/16/2025 8:30 AM CDT - 03/16/2025 9:00 AM CDT [facility] 1 [place] [address] Aldo Perez MD #[address] [address] COLONOSCOPY Scheduled Procedures Name Priority Associated Diagnoses Date/Ti me COLONOSCOPY SCREENING FOR COLON CANCER 03/16/2025 8:30 AM CDT documented as of this encounter Visit Diagnoses Not on filedocumented in this encounter Additional Health Concerns Assessment Noted Time PHQ-9 Depression Total Score: 0 01/06/20 21 9:00 AM MED AIDE documented as of this encounter Care Teams Wrapper Stemmer Operator Relationship Specialty Start Date End Date Ronni Simon MD #2 [facility] [address] [place] [address] PCP - General Family Medicine 09/12/15 documented as of this encounter
--- OUTSIDE RECORDS SUMMARY | 2025-01-06 00:46 | XMS_ITS | Encounter Summary ---
Author Organization [facility] Address [address] [place] [address] Phone Care Team Providers Care Load Blocker Name Role Phone Ronni Simon MD Primary Care Provider +1- [phone] Reason for Visit * Reason Comments Medication Refill Encounter Details Date Type Department Care Team (Late st Contact Info) Description 09/27/2020 Refill [facility] #2 [place] [address] Ronni Simon MD #[address] [address] Medication Refill Social History Tobacco Use Types [...] COVID-19? No / Unsure 09/28/2020 8:53 AM PIPELINES SUPERINTENDENT documented as of this encounter Miscellaneous Notes [...] Outpatient Visits 2 months ago Hypertension, essential [facility] Medical [facility] Family [facility] - Ronni Hu MD 5 months ago Chronic neck pain [facility] - Ronni Hu MD 6 months ago Neck pain [facility] Medical [facility] - Ronni Hu MD 9 months ago Hyperlipidemia, unspecified hyperlipidemia type [facility] - Ronni Hu MD 1 year ago Injury of right foot, initial encounter [facility] Carlos Ferrara APN, PRODUCT APPLICATIONS ENGINEER Upcoming Appointments Future Appointments Tomorrow [address], [facility] In 1 month Ronni Simon MD [facility] - Recent and Past Visits Recent Visits Date Type Provider Dept 07/27/20 Office Visit Ronni Simon MD [facility] [place] 04/22/20 Office Visit Ronni Simon MD [facility] [place] 03/25/20 Office Visit Ronni Simon MD [facility] [place] 12/18/19 Office Visit Ronni Simon MD [facility] [place] 09/18/19 Office Visit Carlos Winslow APN, RADHA [facility] Anthony 08/06/19 Office Visit [...] authorizing provider and meeting all other requirements LINES SUPERINTENDENT documented in this encounter Plan of Treatment Upcoming Encounters Date Type Department Care Team (Late st Contact Info) Description 02/12/2025 1:00 PM CDT Office Visit [facility] Family [facility] #2 [place] [address] Ronni Simon MD #[address] [address] 03/06/2025 2:15 PM CDT Office Visit [facility] - Internal Medicine - [place] [address] [place] [place] [address] Corrina Lou, [facility] [address] [address] 03/16/2025 8:30 AM CDT Hospital Encounter [facility] Gi Lab Periop 1 [place] [address] Aldo Perez MD #[address] [address] 03/16/2025 8:30 AM CDT - 03/16/2025 9:00 AM CDT Surgery [facility] Gi Lab Periop 1 [place] [address] Aldo Perez MD #[address] [address] COLONOSCOPY Scheduled Procedures Name Priority Associated Diagnoses Date/Ti me COLONOSCOPY SCREENING FOR COLON CANCER 03/16/2025 8:30 AM CDT documented as of this encounter Visit Diagnoses Not on filedocumented in this encounter Additional Health Concerns Assessment Noted Time PHQ-9 Depression Total Score: 0 04/22/20 20 1:00 PM CDT documented as of this encounter Care Teams Load Blocker Relationship Specialty Start Date End Date Ronni Simon MD #2 [place] [id number] PCP - General Family Medicine 09/12/15 documented as of this encounter
--- OUTSIDE RECORDS SUMMARY | 2025-01-06 00:47 | XMS_ITS | Patient Health Summary ---
Author Organization [facility] Address [address] [place] [address] Care Team Providers Care Solar Maintenance Technician Name Role Phone Unavailable Primary Care Provider Unavailabl e Note from [facility],non-owned Affiliates and Associated Physician Practices is amultiple site organization consisting of ambulatory clinics and hospital sitesin [place], [place], [place] and [place]. This disclosure is being madepursuant to the Care Everywhere program and may not contain all information available regarding this patient. Last updated 18.[facility] Allergies No known active allergies Medications * [...]
--- OUTSIDE RECORDS SUMMARY | 2025-01-06 00:47 | XMS_ITS | Clinical Summary ---
Author Organization [facility] Address [address] [place] [address] Care Team Providers Care Hospice Patient Care Secretary Name Role Phone Unavailable Primary Care Provider Unavailabl e Source Comments [facility],non-owned Affiliates and Associated Physician Practices is amultiple site organization consisting of ambulatory clinics and hospital sitesin [place], [place], [place] and [place]. This disclosure is being madepursuant to the Care Everywhere program and may not contain all information available regarding this patient. Last updated 18.[employer] [facility] Allergies No known active allergies Medications * [...]
--- OUTSIDE RECORDS SUMMARY | 2025-01-06 00:47 | XMS_ITS | Encounter Summary ---
Author Organization [facility] Address [address] [place] [address] Phone Care Team Providers Care Claim Inspector Name Role Phone Alfred Ronniradha Rodriguez MD Primary Care Provider +1- [phone] Reason for Visit * Reason Comments Medication Refill Encounter Details Date Type Department Care Team (Late st Contact Info) Description 04/20/2023 Refill [facility] Medicine [facility] #2 [place] [address] Carlos Winslow APRN, ANSWERER #[address] [address] Medication Refill Social History Tobacco Use Types [...] Dept 03/06/23 Office Visit Ronni Simon MD [facility] 11/06/22 Office Visit Carlos Winslow APRN, RADHA [facility] 09/04/22 Office Visit Ronni Simon MD [facility] Showing recent visits within past 365 days and meeting all other requirements Future Appointments No visits were found meeting these conditions. Showing future appointments within next 90 days and meeting all other requirements documented in this encounter Plan of Treatment Upcoming Encounters Date Type Department Care Team (Late st Contact Info) Description 02/12/2025 1:00 PM CDT Office Visit [facility] Medical Group - Family Medicine - [place] #[address] [place] [address] Ronni Simon MD #[address] [facility] [address] [address] 03/06/2025 2:15 PM CDT Office Visit [facility] Medical Group - Internal Medicine - [place] [address] [place] [address] Corirna Lou, PAC [address] [place] [address] 03/16/2025 8:30 AM CDT [facility] 1 [place] [address] Aldo Perez MD #[address] [address] 03/16/2025 8:30 AM CDT - 03/16/2025 9:00 AM CDT [facility] 1 [place] [address] Aldo Perez MD #[address] [address] COLONOSCOPY Scheduled Procedures Name Priority Associated Diagnoses Date/Ti me COLONOSCOPY SCREENING FOR COLON CANCER 03/16/2025 8:30 AM CDT documented as of this encounter Visit Diagnoses Not on filedocumented in this encounter Additional Health Concerns Assessment Noted Time PHQ-9 Depression Total Score: 0 01/06/20 21 9:00 AM SUPERVISOR EXTRUDING DEPARTMENT documented as of this encounter Care Teams Claim Inspector Relationship Specialty Start Date End Date Ronni Simon MD #[address] [address] PCP - General Family Medicine 09/12/15 documented as of this encounter
--- OUTSIDE RECORDS SUMMARY | 2025-01-06 00:47 | XMS_ITS | Clinical Summary ---
Author Organization [facility] Address #[address] [address] Phone Care Team Providers Care Seat Maker Name Role Phone Ronni Simon MD Primary Care Provider +1- [phone] Allergies No known active allergies Medications Multiple [...] 3 4 Active zolpidem (AMBIEN) 10 MG TabletIndication s:Insomnia, unspecified type Take 1 Tablet by mouth nightly as needed for Sleep. 30 Tablet 5 Active Active Problems Problem Noted Date Diagnosed [...] Type Department Care Team Description [facility] [address] [facility] [place] [place] [address] Ronni Simon MD Medication Refill 11/26/2024 Travel 11/20/2024 Documentation Only [facility] #[address] [place] [address] Ronni Simon MD 11/07/2024 Telephone [facility] #[address] [place] [place] [address] Ronni Simon MD 10/30/2024 3:00 PM STAFF NURSE Office Visit [facility] - General [facility] - [place] [address] [address] Aldo Perez MD Special screening for malignant neoplasms, colon (Primary Dx) Discharge Disposition: Discharged to home or Selfcare 10/30/2024 Travel 10/15/2024 8:45 AM STAFF NURSE - 10/15/2024 11:59 PM STAFF NURSE [facility] 1 [place] [address] Oehl, January N, ROUSTABOUT CREW PUSHER, FRAME GATE MORTISER OPERATOR Discharge Disposition: Discharged to home or Selfcare 10/15/2024 8:04 AM STAFF NURSE - 10/15/2024 8:44 AM STAFF NURSE Hospital [facility] 1 [place] [address] Oehl, January N, ROUSTABOUT CREW PUSHER, FRAME GATE MORTISER OPERATOR Discharge Disposition: Discharged to home or Selfcare 10/15/2024 7:50 AM STAFF NURSE - 10/15/2024 8:03 AM STAFF NURSE Hospital [facility] 1 [place] [address] Oehl, January N, ROUSTABOUT CREW PUSHER, FRAME GATE MORTISER OPERATOR Discharge Disposition: Discharged to home or Selfcare 10/15/2024 7:44 AM STAFF NURSE - 10/15/2024 7:49 AM STAFF NURSE Hospital [facility] Cardiology Stress 1 [place] [address] Oehl, January N, ROUSTABOUT CREW PUSHER, FRAME GATE MORTISER OPERATOR Discharge Disposition: Discharged to home or Selfcare 10/15/2024 Results Follow-Up [facility] Medical [facility] - Family Medicine - [place] #2 [place] [address] Oehl, January N, ROUSTABOUT CREW PUSHER, FRAME GATE MORTISER OPERATOR 10/15/2024 Results Follow-Up [facility] Medical [facility] - Family Medicine - [place] #2 [place] [address] Oemalcolm, January N, ROUSTABOUT CREW PUSHER, FRAME GATE MORTISER OPERATOR 10/14/2024 Travel 10/14/2024 Telephone [facility] #2 [place] [address] Ronni Simon MD JURY DUTY NOTE 10/13/2024 1:30 PM STAFF NURSE Office Visit [facility] #2 [place] [address] Ronni Simon MD Chronic pain syndrome (Primary Dx); Abnormal EKG; Therapeutic drug monitoring; Insomnia, unspecified type Discharge Disposition: Discharged to home or Selfcare 10/13/2024 Travel 10/11/2024 Travel 10/08/2024 Telephone [facility] Central Call Center [address] [place] [phone] Ronni Simon MD Need Order (Need stress test order); Requesting Jury Duty Letter 10/08/2024 Telephone [facility] #2 [place] [address] Ronni Simon MD Advice Only from Last 3 Months Immunizations Immunization Administration [...] drink = 0.6 oz pur e alcohol) [facility] Utilities Answer Date Recorded In the past 12 months has e electric, gas, oil, or water company threatened [...] often do you attend chur ch or christian services? More than 4 times per year 09/03/2024 Do you belong to any clubs o r organizations such as spiritism groups, unions, fraternal or athletic groups, or [...] Score - Questions 1-9 0 05/0 01/2022 [facility] [employer]at ional Health - Occupational Stress Questionnaire Answer Date Recorded [...] any time in the past 12 m [facility], were you homeless or living in a assisted (including now)? No 09/03/2024 Education Answer Date [...] Comments Blood Pressure 160/88 10/30/2024 3:15 PM STAFF NURSE Pulse 73 10/30/2024 3:15 PM STAFF NURSE Temperature 36.6 C (97.8 F) 10/30/2024 3:15 PM STAFF NURSE Respiratory Rate 16 09/22/2024 8:44 AM STAFF NURSE Oxygen Saturation 96% 10/30/2024 3:15 PM STAFF NURSE Inhaled Oxygen Concentration - - Weight 90.3 kg (199 lb) 11/26/2024 2:29 PM STAFF NURSE Height 172.7 cm (5' 8 ) 11/26/2024 2:29 PM STAFF NURSE Body Mass Index 30.26 11/26/2024 2:29 PM STAFF NURSE Plan of Treatment Upcoming Encounters Date Type Department Care Team (Late st Contact Info) Description 02/12/2025 1:00 PM CDT Office Visit [facility]2 [place] [address] Ronni Simon MD #[address] [address] 03/06/2025 2:15 PM CDT Office Visit [facility] Medical [facility] - Internal Medicine - [place] [address] [place] [address] Corrina Lou, [facility] [address] [place] [address] 03/16/2025 8:30 AM CDT [facility] 1 [place] [address] Aldo Perez MD #[address] [address] 03/16/2025 8:30 AM CDT - 03/16/2025 9:00 AM CDT Surgery [facility] Gi Lab Periop 1 [place] [address] Aldo Perez MD #[address] [address] COLONOSCOPY Scheduled Procedures Name Priority Associated Diagnoses [...] Immunization (#1) 2024 07/13/2011 SARS-COV-2 Immunization ( season) 2024 Colonoscopy High Risk Discontinued 02/10/2015 [...] AND EJECTION FRACTION Routine 10/15/2024 8:52 AM STAFF NURSE Abnormal EKG ADULT CV STRESS PHARMACOLOGIC W NUC MED Routine 10/15/2024 8:36 AM STAFF NURSE Abnormal EKG STOOL, OCCULT BLOOD, SCREEN Routine 07/12/2019 HEPATITIS C ANTIBODY Routine 09/23/2018 10:08 AM STAFF NURSE Encounter for hepatitis C screening test for low risk patient HM COLONOSCOPY Routine 02/10/2015 from Last 3 Months or Most Recently Relevant to Health Maintenance Results * NM CARD MULTI SPECT WITH WALL MOTION AND EJECTION FRACTION (10/15/2024 8:52 AM STAFF NURSE) Anatomical Region Laterality Modality CARDIO N/A Nuclear Medicine 10/15/2024 9:31 AM STAFF NURSE Impressions 10/15/2024 9:34 AM STAFF NURSE IMPRESSION: 1. No evidence of myocardial ischemia. 2. Diminished activity typical of attenuation and motion artifact. 3. No convincing evidence of myocardial ischemia. 4. Normal left ventricular ejection fraction poststress. 5. Normal left ventricular wall motion. Narrative 10/15/2024 9:34 AM STAFF NURSE EXAM DESCRIPTION: NM CARD MULTI SPECT WITH [...] Electronically signed by Tono Wolf M.D. CH: Report ID: [id number] Reading Location: [id number] Procedure Note Tono Wolf Jr., MD - [...] Tono Wolf M.D. CH: DESTINY Report ID: [id number] Reading Location: [id number] IMPRESSION: 1. No evidence of myocardial ischemia. 2. Diminished activity typical of attenuation and motion artifact. 3. No convincing evidence of myocardial ischemia. 4. Normal left ventricular ejection fraction poststress. 5. Normal left ventricular wall motion. us Temitope N Oehl ROUSTABOUT CREW PUSHER, FRAME GATE MORTISER OPERATOR IMG NM CARDIAC NI ORDERAB LES Final Result * ADULT CV STRESS PHARMACOLOGIC W NUC MED (10/15/2024 8:36 AM STAFF NURSE) Anatomical Region Laterality Modality CARDIO N/A Electrocardiogra phy Narrative 10/15/2024 1:23 PM STAFF NURSE Non-Imaging Stress Test Patient Name ROMERO Bautista 1950 Patient ID (UPI) [id number] Indications: Abnormal ECG. Study Date10/15/2024 Type of [...] Protocol:Pharmacologic - Persantine Peak HR: 93 bpm [id number] Peak BP: 115/56 mmHg Predicted HR: 144 [...] Weight 198 lbs. BMI 30.11 kg/m^2 Stress Senior Tech Manufacturing Engineering Nurse Keri Figueroa Interpreting Shaniqua Galindo Referring Physician Physician Procedure Note Kory Mcgovern MD - 10/15/2024 Non-Imaging Stress Test Patient Name ROMERO Bautista 1950 Patient ID ([facility]) [id number] Indications: Abnormal ECG. Study Date10/15/2024 Type of [...] Protocol:Pharmacologic - Persantine Peak HR: 93 bpm [id number] Peak BP: 115/56 mmHg Predicted HR: 144 [...] Weight 198 lbs. BMI 30.11 kg/m^2 Stress Senior Tech Manufacturing Engineering Nurse Keri Galindo Referring Physician Physician us January Татьяна ROUSTABOUT CREW PUSHER, FRAME GATE MORTISER OPERATOR IMG STRESS Final Res ult * STOOL, OCCULT BLOOD, SCREEN FOR CA (07/12/2019) Stool specimen (specimen) STOOL SPECIMEN / Unknown us Not On File Provider URINE ORDERABLES Final Resu lt * HEPATITIS C ANTIBODY (09/23/2018 10:08 AM STAFF NURSE) hepatitis C antibody 0.07 <1 S/CO 09/23/2018 9:53 PM STAFF NURSE [facility] Comment: Signal/Cutoff ratio < 0.79 is Nondetected Signal/Cutoff ratio 0.80-0.99 is Grayzone Signal/Cutoff ratio > 0.99 is Detected Supplemental assays are recommended if signal/cutoff ratio is >/=1.00. Signal/cutoff ratio result >/= 5.00 is 97% predictive of positivity for recombinant immunoblot assay (RIBA) and will be reported to the [place] Department of Public Health as required. Blood specimen (specimen) Venipuncture / Unknown 09/23/2018 10:08 AM STAFF NURSE 09/23/2018 10:08 AM STAFF NURSE us Ronni Simon MD CHEMISTRY ORDERABLES Final Result [facility] [address] [place] [address], * COLONOSCOPY (02/10/2015) us Rome Fernandes MD PROCEDURE/MINOR SURGICAL OR DERABLES Final Result from Last 3 Months or Most Recently Relevant to Health Maintenance Insurance MEDICARE C [employer] Care Teams Seat Maker Relationship Specialty Start Date End Date Ronni Simon MD #2 [place] [address] PCP - General Family Medicine 09/12/15
--- OUTSIDE RECORDS SUMMARY | 2025-01-06 00:47 | XMS_ITS | Encounter Summary ---
Author Organization [facility] Address [address] [place] [address] Phone Care Team Providers Care Chemical Etch Operator Name Role Phone Alfred Ronniradha Rodriguez MD Primary Care Provider +1- [phone] Reason for Visit * Reason Comments Medication Refill Encounter Details Date Type Department Care Team (Late st Contact Info) Description 12/20/2021 Refill [facility] #2 [place] [address] Carlos Winslow APRN, CAN CUTTER #[address] [address] Medication Refill Social History Tobacco Use Types [...] 90 days and meeting all other requirements POLISHER documented in this encounter Plan of Treatment Upcoming Encounters Date Type Department Care Team (Late st Contact Info) Description 02/12/2025 1:00 PM CDT Office Visit [facility] #2 [place] [address] Ronni Simon MD #[address] [address] 03/06/2025 2:15 PM CDT Office Visit [facility] Medical [facility] - Internal Medicine [facility] [address] [place] [address] Corrina Lou, [facility] [address] [place] [address] 03/16/2025 8:30 AM CDT Hospital Encounter [facility] Gi Lab Periop 1 [place] [address] Aldo Perez MD #[address] [address] 03/16/2025 8:30 AM CDT - 03/16/2025 9:00 AM CDT [facility] 1 [place] [address] Aldo Perez MD #[address] [address] COLONOSCOPY Scheduled Procedures Name Priority Associated Diagnoses Date/Ti me COLONOSCOPY SCREENING FOR COLON CANCER 03/16/2025 8:30 AM CDT documented as of this encounter Visit Diagnoses Not on filedocumented in this encounter Additional Health Concerns Assessment Noted Time PHQ-9 Depression Total Score: 0 01/06/20 21 9:00 AM MOLD POLISHER documented as of this encounter Care Teams Chemical Etch Operator Relationship Specialty Start Date End Date Ronni Simon MD #[address] [address] PCP - General Family Medicine 09/12/15 documented as of this encounter
--- OUTSIDE RECORDS SUMMARY | 2025-01-06 00:47 | XMS_ITS | Referral Summary ---
Author Organization [facility] Address [address] [place] [address] Care Team Providers Care Director Of Community Services Name Role Phone Unavailable Primary Care Provider Unavailabl e Source Comments [facility],non-owned Affiliates and Associated Physician Practices is amultiple site organization consisting of ambulatory clinics and hospital sitesin [place], [place], [place] and [place]. This disclosure is being madepursuant to the Care Everywhere program and may not contain all information available regarding this patient. Last updated 18.[facility] Allergies No known active allergies Medications * [...]
--- OUTSIDE RECORDS SUMMARY | 2025-01-06 00:47 | XMS_ITS | Encounter Summary ---
Author Organization [facility] Address [address] [place] [address] Phone Care Team Providers Care Self Pay Representative Name Role Phone Ronni Simon MD Primary Care Provider +1- [phone] Reason for Visit * Reason Comments Medication Refill Encounter Details Date Type Department Care Team (Late st Contact Info) Description 01/18/2023 Refill [facility] #2 [place] [address] Ronni Simon MD #[address] [address] Medication Refill Social History Tobacco Use Types [...] Dept 11/06/22 Office Visit Carlos Winslow APRN, HOUSING COURT JUDGE [facility] 09/[facility]22 [facility] 03/01/22 Office Visit Ronni Simon MD [facility] Showing recent visits within past 365 days and meeting all other requirements Future Appointments Date Type Provider Dept 03/06/23 Appointment Rnoni Simon MD [facility] Showing future appointments within next 90 days and meeting all other requirements Passed - GFR on record in past 12 months GFR, EST. NONAFRICAN Date Value Ref Range Status 03/30/2022 >60 >=60 Final documented in this encounter Plan of Treatment Upcoming Encounters Date Type Department Care Team (Late st Contact Info) Description 02/12/2025 1:00 PM CDT Office Visit [facility] - [facility] - [place] [facility] [place] [address] Ronni Simon MD #[address] [place] [address] 03/06/2025 2:15 PM CDT Office Visit [facility] - Internal Medicine - [place] [address] [place] [address] Corrina Lou, PAC [address] [address] 03/16/2025 8:30 AM CDT [facility] 1 [place] [address] Aldo Perez MD #[address] [address] 03/16/2025 8:30 AM CDT - 03/16/2025 9:00 AM CDT [facility] 1 [place] [address] Aldo Perez MD #[address] [address] COLONOSCOPY Scheduled Procedures Name Priority Associated Diagnoses Date/Ti wv COLONOSCOPY SCREENING FOR COLON CANCER 03/16/2025 8:30 AM CDT documented as of this encounter Visit Diagnoses Not on filedocumented in this encounter Additional Health Concerns Assessment Noted Time PHQ-9 Depression Total Score: 0 01/06/20 21 9:00 AM SECURITY ORDERLY documented as of this encounter Care Teams Self Pay Representative Relationship Specialty Start Date End Date Ronni Simon MD #2 [facility] [address] [place] [address] PCP - General Family Medicine 09/12/15 documented as of this encounter
--- OUTSIDE RECORDS SUMMARY | 2025-01-06 00:47 | XMS_ITS | Encounter Summary ---
Author Organization [facility] Address [address] [place] [address] Phone Care Team Providers Care Manager Telemarketing Name Role Phone Ronni Simon MD Primary Care Provider [phone]- [phone] Reason for Visit * Reason Comments Medication Refill Encounter Details Date Type Department Care Team (Late st Contact Info) Description 07/06/2020 Refill [facility] #2 [place] [address] Ronni Simon MD #[address] [address] Medication Refill Social History Tobacco Use Types [...] ago Chronic neck pain [facility] Ronni Simon MD 3 months ago Neck pain [facility] Ronni Simon MD 6 months ago Hyperlipidemia, unspecified hyperlipidemia type [facility] Ronni Simon MD 9 months ago Injury of right foot, initial encounter [facility] Carlos Winslow APN, COVERAGE ANALYST 11 months ago Right knee pain, unspecified chronicity [facility] Ronni Simon MD Upcoming Appointments Future Appointments In 3 weeks Ronni Simon MD [facility], [facility] SOCIAL WORK MANAGER - Recent and Past Visits Recent Visits Date Type Provider Dept 04/22/20 Office Visit Ronni Simon MD [facility] 03/25/20 Office Visit Ronni Simon MD [facility] 12/18/19 Office Visit Ronni Simon MD [facility] 09/18/19 Office Visit Carlos Winslow APN, COVERAGE ANALYST [facility] 08/06/19 Office Visit Ronni Simon [...] 1:00 PM CDT Office Visit [facility] #2 [place] [address] Ronni Simon MD #[address] [address] 03/06/2025 2:15 PM CDT Office Visit [facility] Internal Medicine [facility] [address] [place] [address] Corrina Lou, [facility] [address] [place] [address] 03/16/2025 8:30 AM CDT Hospital Encounter [facility] Gi Lab Periop 1 [place] [address] Aldo Perez MD #[address] [address] 03/16/2025 8:30 AM CDT - 03/16/2025 9:00 AM CDT Surgery [facility] Gi Lab Periop 1 [place] [address] Aldo Perez MD #[address] [address] COLONOSCOPY Scheduled Procedures Name Priority Associated Diagnoses Date/Ti me COLONOSCOPY SCREENING FOR COLON CANCER 03/16/2025 8:30 AM CDT documented as of this encounter Visit Diagnoses Not on filedocumented in this encounter Additional Health Concerns Assessment Noted Time PHQ-9 Depression Total Score: 0 04/22/20 20 1:00 PM CDT documented as of this encounter Care Teams Manager Telemarketing Relationship Specialty Start Date End Date Ronni Simon MD #2 [place] [id number] PCP - General Family Medicine 09/12/15 documented as of this encounter
--- OUTSIDE RECORDS SUMMARY | 2025-01-06 00:47 | XMS_ITS | Encounter Summary ---
Author Organization [facility] Address [address] [place] [address] Phone Care Team Providers Care Publications Inspector Name Role Phone Ronni Simon MD Primary Care Provider [phone]- [phone] Reason for Visit * Reason Comments Medication Refill Encounter Details Date Type Department Care Team (Late st Contact Info) Description 08/18/2020 Refill [facility] #2 [place] [address] Ronni Simon MD #[address] [address] Medication Refill Social History Tobacco Use Types [...] CDT Office Visit [facility] Family [facility] #2 [place] [address] Ronni Simon MD #[address] [address] 03/06/2025 2:15 PM CDT Office Visit [facility] Internal Medicine - [place] [address] [place] [address] Corrina Lou, [facility] [address] [place] [address] 03/16/2025 8:30 AM CDT Hospital Encounter [facility] Gi Lab Periop 1 [place] [address] Aldo Perez MD #[address] [address] 03/16/2025 8:30 AM CDT - 03/16/2025 9:00 AM CDT [facility] 1 [place] [address] Aldo Perez MD #[address] [address] COLONOSCOPY Scheduled Procedures Name Priority Associated Diagnoses Date/Ti me COLONOSCOPY SCREENING FOR COLON CANCER 03/16/2025 8:30 AM CDT documented as of this encounter Visit Diagnoses Not on filedocumented in this encounter Additional Health Concerns Assessment Noted Time PHQ-9 Depression Total Score: 0 04/22/20 20 1:00 PM CDT documented as of this encounter Care Teams Publications Inspector Relationship Specialty Start Date End Date Ronni Simon MD #[address] [address] PCP - General Family Medicine 09/12/15 documented as of this encounter
--- OUTSIDE RECORDS SUMMARY | 2025-01-06 00:47 | XMS_ITS | Clinical Summary ---
Author Organization [facility] Address 1 [place] [address] Care Team Providers Care Customer Expert Name Role Phone Ronni Simon MD Primary Care Provider +1 -[phone] Allergies No known active allergies Medications amLODIPine [...] 1 tablet (75 mcg total) by mouth milker machine before breakfast Active losartan (COZAAR) 50 mg [...] stage II (mild) 03/14/20 14 Overview (01/31/2017): MANAGER ENGLISH KIDNEY DIS STAGE II Benign hypertension 03/14/2014 [...] on file Legal Sex Male 11:56 PM SANITATION WORKER Gender Identity Not on file Sexual Orientation [...] C Screening 1948 Hepatitis B Screening 1966 Pneumococcal vaccine 65+ (1 of 1 - PCV) 1998 Zoster Vaccine (1 of 2) 1998 DTaP/Tdap/Td Vaccine (1 - Tdap) 08/07/2008 8, 10/29/2006 Well Visit 65+ 2013 Influenza Vaccine (#1) 2024 07/13/2011 Insurance [employer] ADVANT[employer] CHOICE PPO Advance Directives For more information, please contact: [phone] * Full Code (Latest Code Status on File) Date Activated Date Inactivated Comments 03/09/2018 11:46 PM 03/11/2018 8:26 PM Care Teams Customer Expert Relationship Specialty Start Date End Date Ronni Simon MD 2 [place] [address] PCP - General Family Medicine 05/28/24
--- OUTSIDE RECORDS SUMMARY | 2025-01-06 00:47 | XMS_ITS | Encounter Summary ---
Author Organization [facility] Address [address] [place] [address] Phone Care Team Providers Care Leadership Intern Name Role Phone Ronni Simon MD Primary Care Provider +1- [phone] Reason for Visit * Reason Comments Medication Refill Encounter Details Date Type Department Care Team (Late st Contact Info) Description 09/03/2020 Refill [facility] #2 [place] [address] Ronni Simon MD #[address] [address] Medication Refill Social History Tobacco Use Types [...] COVID-19? No / Unsure 08/30/2020 8:36 AM JEWELRY MOLD MAKER documented as of this encounter Miscellaneous Notes [...] Outpatient Visits 1 month ago [facility], [facility] 4 months ago Chronic neck pain [facility] Ronni Hu MD 5 months ago Neck pain [facility] Ronni Hu MD 8 months ago Hyperlipidemia, unspecified hyperlipidemia type [facility] Ronni Hu MD 11 months ago Injury of right foot, initial encounter [facility] Carlos Ferrara APN, SHIPBUILDING DRAFTSPERSON Upcoming Appointments Future Appointments In 1 month Ronni Simon MD [facility] COMMERCIAL FRONT LOAD DRIVER - Recent and Past Visits Recent Visits [...] Outpatient Visits 1 month ago Hypertension, essential [facility] Ronni Hu MD 4 months ago Chronic neck pain [facility] Ronni Hu MD 5 months ago Neck pain [facility] Ronni Hu MD 8 months ago Hyperlipidemia, unspecified hyperlipidemia type [facility] Ronni Hu MD 11 months ago Injury of right foot, initial encounter [facility] Carlos Ferrara APN, RADHA Upcoming Appointments Future Appointments In 1 month Ronni Simon MD [facility] - Recent and Past Visits Recent Visits [...] Provider Dept 11/01/20 Appointment Ronni Simon MD [facility] Showing future appointments within next 90 days with a meds authorizing provider and meeting all other requirements LRY MOLD MAKER documented in this encounter Plan of Treatment Upcoming Encounters Date Type Department Care Team (Late st Contact Info) Description 02/12/2025 1:00 PM CDT Office Visit [facility] - Family Medicine [facility] #2 [place] [address] Ronni Simon MD #[address] [address] 03/06/2025 2:15 PM CDT Office Visit [facility] Internal Medicine - [place] [address] [place] [address] Corrina Lou, [facility] [address] [place] [address] 03/16/2025 8:30 AM CDT Hospital Encounter [facility] Gi Lab Periop 1 [place] [address] Aldo Perez MD #[address] [address] 03/16/2025 8:30 AM CDT - 03/16/2025 9:00 AM CDT Surgery [facility] Gi Lab Periop 1 [place] [address] Aldo Perez MD #[address] [address] COLONOSCOPY Scheduled Procedures Name Priority Associated Diagnoses Date/Ti me COLONOSCOPY SCREENING FOR COLON CANCER 03/16/2025 8:30 AM CDT documented as of this encounter Visit Diagnoses Not on filedocumented in this encounter Additional Health Concerns Assessment Noted Time PHQ-9 Depression Total Score: 0 04/22/20 20 1:00 PM CDT documented as of this encounter Care Teams Leadership Intern Relationship Specialty Start Date End Date Ronni Simon MD #2 [place] [address] PCP - General Family Medicine 09/12/15 documented as of this encounter
--- OUTSIDE RECORDS SUMMARY | 2025-01-06 00:47 | XMS_ITS | Encounter Summary ---
Author Organization [facility] Address [address] [place] [address] Phone Care Team Providers Care Hall Manager Name Role Phone Ronni Simon MD Primary Care Provider +1- [phone] Reason for Visit * Reason Comments Medication Refill Encounter Details Date Type Department Care Team (Late st Contact Info) Description 07/12/2022 Refill [facility] #2 [place] [address] Ronni Simon MD #[address] [address] Medication Refill Social History Tobacco Use Types [...] Description 02/12/2025 1:00 PM CDT Office Visit [facility] Family [facility] #2 [place] [address] Ronni Simon MD #[address] [address] 03/06/2025 2:15 PM CDT Office Visit [facility] Internal Medicine - [place] [address] [place] [address] Corrina Lou, [facility] [address] [place] [address] 03/16/2025 8:30 AM CDT Hospital Encounter [facility] Gi Lab Periop 1 [place] [address] Aldo Perez MD #[address] [address] 03/16/2025 8:30 AM CDT - 03/16/2025 9:00 AM CDT Surgery [facility] Gi Lab Periop 1 [place] [address] Aldo Perez MD #[address] [address] COLONOSCOPY Scheduled Procedures Name Priority Associated Diagnoses Date/Ti me COLONOSCOPY SCREENING FOR COLON CANCER 03/16/2025 8:30 AM CDT documented as of this encounter Visit Diagnoses Diagnosis Insomnia, unspecified type documented in this encounter Additional Health Concerns Assessment Noted Time PHQ-9 Depression Total Score: 0 01/06/20 21 9:00 AM PADDED PRODUCTS INSPECTOR TRIMMER documented as of this encounter Care Teams Hall Manager Relationship Specialty Start Date End Date Ronni Simon MD #[address] [address] PCP - General Family Medicine 09/12/15 documented as of this encounter
--- OUTSIDE RECORDS SUMMARY | 2025-01-06 00:47 | XMS_ITS | Encounter Summary ---
Author Organization [facility] Address [address] [place] [address] Phone Care Team Providers Care Executive Staff Assistant Name Role Phone Selina Rosas MD Primary Care Provider +1- [phone] Reason for Visit * Reason Comments Medication Refill Encounter Details Date Type Department Care Team (Late st Contact Info) Description 08/03/2020 Refill [facility] Family [facility] #2 [place] [address] Selina Rosas MD #[address] [address] Medication Refill Social History Tobacco Use Types [...] Sources Source Last Checked for Updates Status [facility] 08/03/2020 11:27 AM History Response Filed documented in this encounter Plan of Treatment Upcoming Encounters Date Type Department Care Team (Late st Contact Info) Description 02/12/2025 1:00 PM CDT Office Visit [facility] Medical [facility] - Family [facility] #2 [place] [address] Selina Rosas MD #[address] [address] 03/06/2025 2:15 PM CDT Office Visit [facility] Medical [facility] - Internal Medicine - [place] [address] [place] [address] Corrina Lou, [facility] [address] [place] [address] 03/16/2025 8:30 AM CDT [facility] Per[facility] 1 [place] [address] Aldo Perez MD #[address] [address] 03/16/2025 8:30 AM CDT - 03/16/2025 9:00 AM CDT Surgery [facility] Gi Lab Periop 1 [place] [address] Adlo Perez MD #[address] [address] COLONOSCOPY Scheduled Procedures Name Priority Associated Diagnoses Date/Ti ga COLONOSCOPY SCREENING FOR COLON CANCER 03/16/2025 8:30 AM CDT documented as of this encounter Visit Diagnoses Not on filedocumented in this encounter Additional Health Concerns Assessment Noted Time PHQ-9 Depression Total Score: 0 04/22/20 20 1:00 PM CDT documented as of this encounter Care Teams Executive Staff Assistant Relationship Specialty Start Date End Date Selina Rosas MD #[address] [address] PCP - General Family Medicine 09/12/15 documented as of this encounter
--- OUTSIDE RECORDS SUMMARY | 2025-01-06 00:47 | XMS_ITS | Referral Summary ---
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
[2025-01-06] MEDS: LACTATED RINGERS 1,000 ML 30 ML IV CONT ×2 (06:15→10:48)
[2025-01-06] MEDS: TRANEXAMIC ACID 1,000MG/ISO100 1,000 MG/100 ML BAG 200 MG IVPB (06:30)
[2025-01-06] MEDS: ACETAMINOPHEN 500 MG TABLET 1000 MG PO (07:00)
--- NOTE | 2025-01-06 07:34 | WPDANESEPPF ---
Anes - Initial Pre Proc Eval Procedure: Operation Date: 01/06/25 08:30 Proposed Procedures p Right Custom Total Knee Arthroplasty - Dereje Anaya MD Date/Time: 01/06/25 07:34 Surgeon: Dereje Anaya MD Pre Op Diagnosis: primary oa right knee Patient Data Age: 74 Gender: M Height: 1.73 m Weight: 90.3 kg Last Vital Signs Temp 36.9 C 12/15/24 10:46 Pulse 65 12/15/24 10:46 Resp 18 12/15/24 10:46 BP 160/80 H 12/15/24 10:46 Pulse Ox 98 12/15/24 10:46 O2 Del Method Room Air 12/15/24 10:46 Allergies Allergy/AdvReac Type Severity Reaction Status Date / Time No Known Allergies Allergy Verified 12/15/24 09:57 Home Medications ?Medication ?Instructions ?Recorded ?Confirmed ?Type amlodipine 5 mg tablet 5 mg PO BID 09/03/19 12/15/24 History levothyroxine 88 mcg tablet 88 mcg PO DAILY 09/03/19 12/15/24 History (Synthroid) losartan 50 mg tablet 50 mg PO BID 09/03/19 12/15/24 History multivitamin 1 tablet PO DAILY 09/03/19 12/15/24 History pravastatin 80 mg tablet 80 mg PO DAILY 09/03/19 12/15/24 History zolpidem 5 mg tablet 5 mg PO HS 09/03/19 12/15/24 History clopidogrel 75 mg tablet 75 mg PO DAILY 01/04/23 12/15/24 History acetaminophen 500 mg tablet 500 mg PO Q6H PRN pain 12/15/24 12/15/24 History (Acetaminophen Extra Strength) ferrous sulfate 325 mg (65 mg 325 mg PO DAILY 12/15/24 12/15/24 History iron) tablet Patient hx anesthesia problems: none Family hx anesthesia problems: none Results Review: All pre-operative results and documents have been reviewed as part of the pre-operative evaluation. 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 Fatigue Insomnia Hyperglycemia Anemia History of recent stroke (~02/2018) Skin lesion Obesity Iron deficiency anemia Hyperlipidemia Hypertension Erectile dysfunction Thyroid activity decreased Surgical History Surgical History History of carpal tunnel surgery of left wrist (~1996) History of carpal tunnel surgery of right wrist (~1992) Family History Family History Other Diabetes mellitus Social History Social History Smoking status: Former smoker Tobacco type: cigarettes Do You Feel Safe in your Home?: Yes Lack of Transportation: No Lack of Food: Never True Current Housing: I Have Housing Concerned About Future Housing: No Difficulty Paying Gas/Electric Bills: No Difficulty Paying for Meds: No Currently Unemployed: No Education: High School Diploma/GED Difficulty w/ Childcare or Family Care: No Anes - Eval Final PreProcedure Day of Procedure 01/06/25 07:34 Patient weight: obese Heart: regular rate and rhythm Lungs: clear to auscultation Airway: Mallampati scale class II Neurological: alert and oriented Last oral intake: >/= 8 hours ASA classification: III Emergent: no Anesthetic plan: proceed Anesthesia type and monitoring: general LMA and standard monitoring Results Review: All pre-operative results and documents have been reviewed as part of the pre-operative evaluation. Informed Consent: The patient's anesthetic plan and its attendant risks and benefits were discussed with the patient/family/POA. Questions were solicited and answers provided to the satisfaction of the patient/family/POA.
--- NOTE | 2025-01-06 07:52 | WPDHPUPDATE1 ---
History and Physical Update Update Date/Time: 01/06/25 07:52 History and Physical has been reviewed, including an updated exam of the patient. There are NO changes in the patient's condition. Risks, benefits, and alternatives have been discussed and questions answered. Patient agrees to proceed with procedure.
[2025-01-06] MEDS: ceFAZolin 2 GM/D5W 50 ML 2 GM/50 ML BAG IVPB (08:24)
[2025-01-06] MEDS: SODIUM CHLORIDE 0.9% IV 37.7 ML, MORPHINE SULFATE INJ (*CRX) 2 MG, ROPivacaine HCL 1% 2... INFILTRATE (08:42)
[2025-01-06] MEDS: TRANEXAMIC ACID 1,000 MG/10 ML AMPUL 1000 MG IV PUSH (10:16)
[2025-01-06] MEDS: fentaNYL CITRATE INJ (*CRX) 100 MCG/2 ML VIAL 25 MCG IV PUSH ×6 (11:04→11:36)
[2025-01-06] MEDS: oxyCODONE HCL (*CRX) 5 MG TAB IR PO (12:06)
--- NOTE | 2025-01-06 12:48 | SUR.PHASEII ---
Patient vitals are stable. Patient is working with therapy so he is unhooked from monitors at this time.
--- NOTE | 2025-01-06 14:32 | P.OP_ITS ---
Procedure Note - Detailed Date of Procedure 01/06/25 Pre-op Diagnosis Right knee degenerative arthritis. Post-op Diagnosis Same Procedure Performed Custom total knee arthroplasty, right. Surgeon Dereje Anaya MD Nuclear Physicist Tamera Edgar PA-C Anesthesia General and Regional (Subsartorial block.) Findings Excellent bone quality. No releases. Optimum fit of the custom implant. Description of Procedure Preoperative antibiotics were given. The limb was prepped and draped in the usual sterile fashion with a well-padded tourniquet high on the thigh. The limb was exsanguinated and the tourniquet inflated to 300 mmHg. A longitudinal incision was created just medial to the patella. A trivector approach to the knee was performed. Arthrotomy was taken down through the joint capsule. No significant releases were initially taken. The femur was exposed and the F1 jig was applied. The coring tool was used to remove the cartilage for the F2 jig to sit flush with the bone. The jig was pinned and the distal cut carefully taken. Caliper measurements confirmed appropriate bony resections according to the preoperative templated plan. The F4 cutting jig for the femur was applied, at the standard rotation. The AP and anterior chamfer cuts were taken. The F5 jig was applied and the posterior chamfer cuts were taken. The tibia was prepared using the T1 jig, after removing cartilage for the jig contact points. Proper alignment was checked with the alignment chitra. The tibia was cut using the T1u guide. Gap balancing was performed. Gap measurements were taken and the knee was trialed. Excellent alignment and soft tissue balancing was confirmed. The posterior cruciate ligament was recessed along the proximal tibia. The patella was cut for resurfacing. Three lug holes were drilled. Meniscal remnants were removed. The trial components were assembled. Excellent range of motion and proper soft tissue balancing were confirmed throughout the full range of motion. Patellar tracking was excellent. The knee was copiously irrigated periodically throughout the procedure. The real implants were cemented into position. Excess cement was carefully removed. The wound was closed in layers with interrupted #1 Vicryl suture, 2-0 strata fix suture, 0 strata fix suture, 2-0 strata fix suture. Steri-Strips placed on the skin with the knee flexed. Sterile bulky dressing applied. The patient was brought to [facility] recovery room in stable condition. There were no complications. Physician export sales assistant, Tamera Edgar PA-C, required for surgery; including patient positioning, draping, tissue retraction, maintaining instrument position, cement removal, wound closure, and dressing placement. Implants Conformis Custom total knee arthroplasty. Cemented. Cruciate retaining. 6C insert. 38 mm oval patella. Estimated Blood Loss 100 Drains No Complications No immediate complications Condition Stable Disposition PACU [facility] Billing Surgery - Charge Forward: Surgery Billing
== END 2025-01-06 14:00 | disposition home or self-care (01) ==
PROVIDERS: PCP Family Medicine; Visit Provider Orthopaedic Surgery
PROC: (CPT 27447; principal; 2025-01-06 08:30)
DX: M17.11 Unilateral primary osteoarthritis, right knee (principal); Z87.891 Personal history of nicotine dependence; E66.9 Obesity, unspecified; Z68.29 Body mass index [BMI] 29.0-29.9, adult
CPT/HCPCS: 27447; 36415; 73560; 86850; 86900; 86901; 97110; 97161; 97165; A9270; C1713; C1776; J0171; J0690; J1171; J1885; J2003; J2250; J2270; J2405; J2704; J2795; J3010; J7120

== ENCOUNTER 2025-01-28 12:44 | Emergency (ER) | payer OTHER, SELFPAY ==
--- NOTE | ~2025-01-28 | XR_ITS ---
Right Knee Technique: AP, lateral, and sunrise views were obtained. Clinical History: Pain Findings: No fracture or dislocation is seen. Knee arthroplasty in place. Soft tissues are unremarkab le. No joint effusion is seen. Impression: No acute abnormality. Right knee arthroplasty in place. Reviewed, dictated and finalized at location . Impression: No acute abnormality. Right knee arthroplasty in place.
[2025-01-28 12:47] VITALS: BP 133/103; PULSE 70; RESP 16; TEMP 36.6; O2SAT 100
--- NOTE | 2025-01-28 13:37 | ED_ITS ---
HPI - General Adult General Chief complaint: Extremity Injury, Lower Stated complaint: post op problems Time Seen by Provider: 01/28/25 13:35 Source: patient and family Mode of arrival: ambulatory Limitations: no limitations History of Present Illness HPI narrative: Patient tripped and fell on both knees, complaining of right knee bleeding prior to arrival Status post right knee surgery January 06, [address] Anaya. Patient on Plavix, he denies other injuries Related Data Home Medications ?Medication ?Instructions ?Recorded ?Confirmed ?Last Taken ?Type amlodipine 5 mg tablet 5 mg PO BID 09/03/19 01/06/25 01/05/25 History levothyroxine 88 mcg tablet 88 mcg PO DAILY 09/03/19 01/06/25 01/06/25 History (Synthroid) losartan 50 mg tablet 50 mg PO BID 09/03/19 01/06/25 01/05/25 History multivitamin 1 tablet PO DAILY 09/03/19 12/15/24 Unknown History pravastatin 80 mg tablet 80 mg PO DAILY 09/03/19 01/06/25 01/05/25 History zolpidem 5 mg tablet 5 mg PO HS 09/03/19 01/06/25 01/05/25 History clopidogrel 75 mg tablet 75 mg PO DAILY 01/04/23 01/06/25 12/29/24 History acetaminophen 500 mg tablet 500 mg PO Q6H PRN pain 12/15/24 01/06/25 01/05/25 History (Acetaminophen Extra Strength) ferrous sulfate 325 mg (65 mg 325 mg PO DAILY 12/15/24 01/06/25 01/02/25 History iron) tablet Allergies Allergy/AdvReac Type Severity Reaction Status Date / Time No Known Allergies Allergy Verified 12/15/24 09:57 Review of Systems Review of Systems: All systems reviewed & are unremarkable except as noted in HPI and below PMFSH Past Medical History Medical History History of stroke 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 Fatigue Insomnia Hyperglycemia Anemia History of recent stroke (~02/2018) Skin lesion Obesity Iron deficiency anemia Hyperlipidemia Hypertension Erectile dysfunction Thyroid activity decreased Surgical History Surgical History History of carpal tunnel surgery of left wrist (~1996) History of carpal tunnel surgery of right wrist (~1992) Family History Family History Other Diabetes mellitus Social History Social History Smoking packs per day: 1.5 Smoking cigarettes per day: 30.0 Years smoked: 10 Smoking pack-years: 15.00 Smoking status: Former smoker Tobacco type: cigarettes Smoking end date: 10/29/76 Additional smoking assessment comments: DENIES ANY FORM OF TOBACCO USE Do You Feel Safe in your Home?: Yes Lack of Transportation: No Lack of Food: Never True Current Housing: I Have Housing Concerned About Future Housing: No Difficulty Paying Gas/Electric Bills: No Difficulty Paying for Meds: No Currently Unemployed: No Education: High School Diploma/GED Difficulty w/ Childcare or Family Care: No Living arrangements: with family Spiritual care concerns: No Exam Narrative: General appearance: Well-developed, well-nourished Skin: Normal color Head: Normocephalic, nontraumatic Eyes: Clear conjunctiva ENT: Oropharynx normal, ears normal, nose normal Neck: Supple, nontender Chest and respiratory: Airway patent, no respiratory distress, no accessory muscle use Heart: Regular rate/rhythm Abdomen: Soft, nontender, no organomegaly, quiet bowel sounds Vascular: Normal peripheral pulses, normal capillary refill. Musculoskeletal: Right knee showed dehiscence of the surgical wound, 13 cm, bleeding, controlled with pressure dressing, left knee exam showed abrasion, with range of motion no deformity, no swelling Neurologic: Alert and oriented ?3, DIABETES EDUCATION COORDINATOR is normal as tested, no gross motor deficit Course Consultations Consultation #1: DR ANAYA CAME TO THE ED AND EVALUATED THE PATIENT RECOMMENDS SUTURE 4-0 NYLON WITH ENOUGH GAPS BETWEEN THE SUTURES Date: 01/28/25 Vital Signs Vital signs: Vital Signs Temperature 36.6 C 01/28/25 12:47 Pulse Rate 70 01/28/25 12:47 Respiratory Rate 16 01/28/25 12:47 Blood Pressure 133/103 H 01/28/25 12:47 Pulse Oximetry 100 01/28/25 12:47 Oxygen Delivery Room Air 01/28/25 12:47 Temperature 36.6 C 01/28/25 12:47 Pulse Rate 70 01/28/25 12:47 Respiratory Rate 16 01/28/25 12:47 Blood Pressure 133/103 H 01/28/25 12:47 Pulse Oximetry 100 01/28/25 12:47 Oxygen Delivery Room Air 01/28/25 12:47 Procedures Laceration Laceration 1: Date: 01/28/25 Site: lower extremity Side (If applicable): right (RIGHT KNEE ANTERIORLY) Size (cm): 13 Description: linear and clean Depth: simple, single layer Local Anesthetic: lidocaine 1% and with epi Amount of anesthesia used (mL): 10 Pre-repair: wound explored and deep structures intact ====== Skin Level ====== Skin layer closed with: nylon Size (cm): 4-0 Number of sutures: 8 Technique: simple, interrupted ====== Subcutaneous Layer ====== ====== Muscle Layer ====== ====== Tendon Layer ====== Medical Decision Making MDM Narrative Medical decision making narrative: PATIENT CAME WITH DEHISCENCES OF THE RIGHT KNEE SURGICAL WOUND AFTER A FALL VITAL SIGNS STABLE PHYSICAL EXAMINATION ABOVE X-RAY OF THE RIGHT KNEE SHOWED NO ACUTE ABNORMALITIES PATIENT WAS MANAGED WITH 4-0 NYLON SUTURES X8, RECEIVED FAMILY 100 MG OF KEFLEX P.O. PRIOR TO DISCHARGE ON KEFLEX. KNEE IMMOBILIZER. DISCHARGE Differential Diagnosis Differential Diagnosis: RIGHT KNEE CONTUSION, FRACTURE, Vital Signs Vital Signs: Vital Signs Temperature 36.6 C 01/28/25 12:47 Pulse Rate 70 01/28/25 12:47 Respiratory Rate 16 01/28/25 12:47 Blood Pressure 133/103 H 01/28/25 12:47 Pulse Oximetry 100 01/28/25 12:47 Oxygen Delivery Room Air 01/28/25 12:47 Temperature 36.6 C 01/28/25 12:47 Pulse Rate 70 01/28/25 12:47 Respiratory Rate 16 01/28/25 12:47 Blood Pressure 133/103 H 01/28/25 12:47 Pulse Oximetry 100 01/28/25 12:47 Oxygen Delivery Room Air 01/28/25 12:47 Imaging Data Radiologist's impression: Impressions Knee X-Ray 01/28/25 13:57 Impression: No acute abnormality. Right knee arthroplasty in place. Critical Care Time Critical Care Time Critical Care Time: No Discharge Plan Discharge Clinical Impression: Dehiscence of laceration wound Patient Disposition: Home, Self-Care Condition: Improved Instructions: Antibiotic Form, Wound Dehiscence (ED) Additional Instructions: Return if symptoms are worsening , call Dr. Anaya for appointement take Tylenol as as needed for aches and pain, continue home medications. Patient Language: Macedonian Prescriptions: New cephalexin 500 mg capsule 500 mg PO Q6H 7 Days Qty: 28 0RF No Action amlodipine 5 mg tablet 5 mg PO BID levothyroxine [Synthroid] 88 mcg tablet 88 mcg PO DAILY losartan 50 mg tablet 50 mg PO BID multivitamin Tablet 1 tablet PO DAILY pravastatin 80 mg tablet 80 mg PO DAILY zolpidem 5 mg tablet 5 mg PO HS clopidogrel 75 mg tablet 75 mg PO DAILY ferrous sulfate 325 mg (65 mg iron) tablet 325 mg PO DAILY acetaminophen [Acetaminophen Extra Strength] 500 mg tablet 500 mg PO Q6H PRN (Reason: pain) prednisone 5 mg tablet 5 mg PO DAILY 21 Days Qty: 21 0RF oxycodone-acetaminophen 5-325 mg tablet 1 - 2 tablet PO Q4-6H PRN (Reason: pain) 7 Days Qty: 30 0RF Follow-up/Referrals: Alfred,Ronni Abbott MD [Primary Care Provider] -
--- OUTSIDE RECORDS SUMMARY | 2025-01-28 13:48 | XMS_ITS | Encounter Summary ---
Author Organization [facility] Address [address] [place] [address] Phone Care Team Providers Care Windows Vmware Engineer Name Role Phone Ronni Simon MD Primary Care Provider [phone] Reason for Visit * Reason Comments Medication Refill Encounter Details Date Type Department Care Team (Late st Contact Info) Description 04/02/2021 [facility]ill [facility] [address] [place] [address] Ronni Simon MD #[address] [address] Medication Refill Social History Tobacco Use Types [...] Visits 1 month ago Chronic neck pain [facility] Ronni Hu MD 2 months ago Insomnia, unspecified type [facility] [place] 6 months ago Chronic neck pain [facility] Ronni Hu MD 8 months ago [facility], [facility] 11 months [facility] Chronic neck pain [facility] Ronni Hu MD Upcoming Appointments Future Appointments In 1 week Ronni Simon MD [facility] - Recent and Past Visits Recent Visits [...] Description 02/12/2025 1:00 PM CDT Office Visit [facility] Family [facility] [address] [place] [address] Ronni Simon MD #2 [facility] [address] [place] [address] 03/06/2025 2:15 PM CDT Office Visit [facility] Internal Medicine - [place] [address] [place] [phone] Corrina Lou, [facility] [address] [place] [address] 03/16/2025 8:30 AM CDT Hospital Encounter [facility] Per[facility] 1 [place] [address] Aldo Perez MD #[address] [address] 03/16/2025 8:30 AM CDT - 03/16/2025 9:00 AM CDT Surgery [facility] Periop [address] [place] [address] Aldo Perez MD #[address] [address] COLONOSCOPY Scheduled Procedures Name Priority Associated Diagnoses Date/Ti me COLONOSCOPY SCREENING FOR COLON CANCER 03/16/2025 8:30 AM CDT documented as of this encounter Visit Diagnoses Diagnosis Insomnia, unspecified type documented in this encounter Additional Health Concerns Assessment Noted Time PHQ-9 Depression Total Score: 0 01/06/20 21 9:00 AM PHYSICIAN PRACTICE ADMINISTRATOR documented as of this encounter Care Teams Windows Vmware Engineer Relationship Specialty Start Date End Date Ronni Simon MD #[address] [address] PCP - General Family Medicine 09/12/15 documented as of this encounter
--- OUTSIDE RECORDS SUMMARY | 2025-01-28 13:48 | XMS_ITS | Encounter Summary ---
Author Organization [facility] Address [address] [facility] [place] [address] Phone Care Team Providers Care Short Haul Driver Name Role Phone Ronni Simon MD Primary Care Provider [phone]- [phone] Reason for Visit * Reason Comments Medication Refill Encounter Details Date Type Department Care Team (Late st Contact Info) Description 05/30/2021 Refill [facility] [address] [place] [address] Ronni Simon MD #[address] [address] Medication Refill Social History Tobacco [...] 02/08/21 Office Visit Ronni Simon MD [facility] 01/05/21 Office Visit Ronni Simon MD [facility] [place] 10/06/20 Office Visit Ronni Simon MD [facility] [place] 07/27/20 Office Visit [facility] Showing recent visits within past 365 days and meeting all other requirements Future Appointments No visits were found meeting these conditions. Showing future appointments within next 90 days and meeting all other requirements documented in this encounter Plan of Treatment Upcoming Encounters Date Type Department Care Team (Late st Contact Info) Description 02/12/2025 1:00 PM CDT Office Visit [facility] Medical Group - Family Medicine - [place] [address] [place] [address] Ronni Simon MD [address] [address] 03/06/2025 2:15 PM CDT Office Visit [facility] - [place] [address] [place] [address] Corrina Lou, PAC [address] [facility] [place] [address] 03/16/2025 8:30 AM CDT [facility] [address] [place] [address] Aldo Perez MD #[address] [address] 03/16/2025 8:30 AM CDT - 03/16/2025 9:00 AM CDT [facility] [address] [place] [address] Aldo Perez MD #[address] [address] COLONOSCOPY Scheduled Procedures Name Priority Associated Diagnoses Date/Ti me COLONOSCOPY SCREENING FOR COLON CANCER 03/16/2025 8:30 AM CDT documented as of this encounter Visit Diagnoses Not on filedocumented in this encounter Additional Health Concerns Assessment Noted Time PHQ-9 Depression Total Score: 0 01/06/20 21 9:00 AM NUMBERER AND WIRER documented as of this encounter Care Teams Short Haul Driver Relationship Specialty Start Date End Date Ronni Simon MD #[address] [address] PCP - General Family Medicine 09/12/15 documented as of this encounter
--- OUTSIDE RECORDS SUMMARY | 2025-01-28 13:48 | XMS_ITS | Encounter Summary ---
Author Organization [facility] Address [address] [place] [address] Phone Care Team Providers Care Menhaden Fishing Crew Member Name Role Phone Ronni Simon MD Primary Care Provider [phone]- [phone] Reason for Visit * Reason Comments Medication Refill Encounter Details Date Type Department Care Team (Late st Contact Info) Description 07/09/2021 Refill [facility] [address] [place] [address] Ronni Simon MD #[address] [address] Medication Refill Social History Tobacco [...] [place] 07/27/20 Office Visit Ronni Simon MD [facility] Showing recent visits within past 365 days and meeting all other requirements Future Appointments No visits were found meeting these conditions. Showing future appointments within next 90 days and meeting all other requirements documented in this encounter Plan of Treatment Upcoming Encounters Date Type Department Care Team (Late st Contact Info) Description 02/12/2025 1:00 PM CDT Office Visit [facility] Medical Group - Family Medicine [facility] #2 [place] [address] Ronni Simon MD #[address] [address] 03/06/2025 2:15 PM CDT Office Visit [facility] Medical [facility] - Internal Medicine [facility] [address] [place] [address] Corrina Lou, PAC [address] [place] [address] 03/16/2025 8:30 AM CDT [facility] [address] [place] [address] Aldo Perez MD #[address] [address] 03/16/2025 8:30 AM CDT - 03/16/2025 9:00 AM CDT [facility] [address] [place] [address] Aldo Perez MD #[address] [address] COLONOSCOPY Scheduled Procedures Name Priority Associated Diagnoses Date/Ti me COLONOSCOPY SCREENING FOR COLON CANCER 03/16/2025 8:30 AM CDT documented as of this encounter Visit Diagnoses Not on filedocumented in this encounter Additional Health Concerns Assessment Noted Time PHQ-9 Depression Total Score: 0 01/06/20 21 9:00 AM FEED MILL TENDER documented as of this encounter Care Teams Menhaden Fishing Crew Member Relationship Specialty Start Date End Date Ronni Simon MD #[address] [address] PCP - General Family Medicine 09/12/15 documented as of this encounter
--- OUTSIDE RECORDS SUMMARY | 2025-01-28 13:48 | XMS_ITS | Encounter Summary ---
Author Organization [facility] Address [address] [place] [address] Phone Care Team Providers Care Clerk Typist Name Role Phone Ronni Simon MD Primary Care Provider [phone]- [phone] Reason for Visit * Reason Comments Medication Refill Encounter Details Date Type Department Care Team (Late st Contact Info) Description 06/06/2021 Refill [facility] [address] [place] [address] Ronni Simon MD #[address] [address] Medication Refill Social History Tobacco Use Types [...] Description 02/12/2025 1:00 PM CDT Office Visit [facility] Family [facility] #2 [place] [address] Ronni Simon MD #[address] [address] 03/06/2025 2:15 PM CDT Office Visit [facility] Internal Medicine [facility] [address] [facility] [place] [address] Corrina Lou, [facility] [address] [place] [address] 03/16/2025 8:30 AM CDT Hospital Encounter [facility] Gi Lab Periop 1 [place] [address] Aldo Perez MD #[address] [address] 03/16/2025 8:30 AM CDT - 03/16/2025 9:00 AM CDT Surgery [facility] Gi Lab Periop [address] [place] [address] Aldo Perez MD #[address] [address] COLONOSCOPY Scheduled Procedures Name Priority Associated Diagnoses Date/Ti me COLONOSCOPY SCREENING FOR COLON CANCER 03/16/2025 8:30 AM CDT documented as of this encounter Visit Diagnoses Diagnosis Insomnia, unspecified type documented in this encounter Additional Health Concerns Assessment Noted Time PHQ-9 Depression Total Score: 0 01/06/20 21 9:00 AM PROCESS ANALYST documented as of this encounter Care Teams Clerk Typist Relationship Specialty Start Date End Date Ronni Simon MD #2 [place] [address] PCP - General Family Medicine 09/12/15 documented as of this encounter
--- OUTSIDE RECORDS SUMMARY | 2025-01-28 13:49 | XMS_ITS | Encounter Summary ---
Author Organization [facility] Address [address] [place] [address] Phone Care Team Providers Care Liner Replacer Name Role Phone Ronni Simon MD Primary Care Provider [phone]- [phone] Reason for Visit * Reason Comments Medication Refill Encounter Details Date Type Department Care Team (Late st Contact Info) Description 07/06/2021 Refill [facility] [address] [place] [phone] Ronni Simon MD #[address] [address] Medication Refill Social History Tobacco [...] [place] 07/27/20 [facility] visits within past 365 days and meeting all other requirements Future Appointments No visits were found meeting these conditions. Showing future appointments within next 90 days and meeting all other requirements documented in this encounter Plan of Treatment Upcoming Encounters Date Type Department Care Team (Late st Contact Info) Description 02/12/2025 1:00 PM CDT Office Visit [facility] - Family [facility] #2 [place] [address] Ronni Simon MD #[address] [address] 03/06/2025 2:15 PM CDT Office Visit [facility] Medical [facility] - Internal Medicine [facility] [address] [place] [address] Corrina Lou, [facility] [address] [place] [address] 03/16/2025 8:30 AM CDT [facility] [address] [place] [address] Aldo Perez MD #[address] [address] 03/16/2025 8:30 AM CDT - 03/16/2025 9:00 AM CDT [facility] [address] [place] [address] Aldo Perez MD #[address] [address] COLONOSCOPY Scheduled Procedures Name Priority Associated Diagnoses Date/Ti me COLONOSCOPY SCREENING FOR COLON CANCER 03/16/2025 8:30 AM CDT documented as of this encounter Visit Diagnoses Not on filedocumented in this encounter Additional Health Concerns Assessment Noted Time PHQ-9 Depression Total Score: 0 01/06/20 21 9:00 AM SUBWAY CAR REPAIRER documented as of this encounter Care Teams Liner Replacer Relationship Specialty Start Date End Date Ronni Simon MD #2 [facility] [address] [place] [address] PCP - General Family Medicine 09/12/15 documented as of this encounter
--- OUTSIDE RECORDS SUMMARY | 2025-01-28 13:49 | XMS_ITS | Clinical Summary ---
Author Organization [facility] [employer] Address [address] [place] [address] Care Team Providers Care Yacht Builder Name Role Phone Unavailable Primary Care Provider Unavailabl e Source Comments [facility] [employer],non-owned Affiliates and Associated Physician Practices is amultiple site organization consisting of ambulatory clinics and hospital sitesin [place], [place], [place] and [place]. This disclosure is being madepursuant to the Care Everywhere program and may not contain all information available regarding this patient. Last updated [employer] Allergies No known active allergies Medications * [...] Health Maintenance Due Date Last Done Comments DTAP/TDAP/TD VACCINES (1 - Tdap) 1967 PNEUMOCOCCAL VACCINE 50+ (1 of 1 - PCV) 1998 ZOSTER VACCINE (1 of 2) 1998 Respiratory Syncytial Virus (RSV) Vaccine Pt: or over 60 yrs (1 - 1-dose 75+ series) 2023 COVID-19 VACCINE ( - 2023-2 5 season) 2024 INFLUENZA VACCINE (#1) 2024 07/13/2011 DEPRESSION SCREENING 10/29/2024 MEDICARE AWV CALENDAR YEAR 2024 HEPATITIS C SCREENING Completed 02/17/2021 , 02/17/2021 HEPATITIS B VACCINE Aged Out No longe r eligible based on patient's age to complete this topic HIB VACCINE Aged Out No longer eligi ble based on patient's age to complete this topic HPV VACCINE Aged Out No longer eligi ble based on patient's age to complete this topic MENINGOCOCCAL (Group B) VACCINE SHARED DECISION-MAKING Aged Out No longer eligible based on patient's age to complete this topic MENINGOCOCCAL GROUPS A/C/Y/W VACCINE Aged Out No longer eligible b ased on patient's age to complete this topic
--- OUTSIDE RECORDS SUMMARY | 2025-01-28 13:49 | XMS_ITS | Encounter Summary ---
Author Organization [facility] Address [address] [place] [address] Phone Care Team Providers Care Winter Intern Name Role Phone Alfred Ronniradha Rodriguez MD Primary Care Provider +1- [phone] Reason for Visit * Reason Comments Medication Refill Encounter Details Date Type Department Care Team (Late st Contact Info) Description 04/20/2023 Refill [facility] #2 [place] [address] Carlos Winslow APRN, CLAMP TRUCK DRIVER #[address] [address] Medication Refill Social History Tobacco Use Types [...] Dept 03/06/23 Office Visit Ronni Simon MD [facility] 11/06/22 Office Visit Carlos Winslow APRN, RADHA [facility] 09/04/22 Office Visit Ronni Simon MD [facility] Showing recent visits within past 365 days and meeting all other requirements Future Appointments No visits were found meeting these conditions. Showing future appointments within next 90 days and meeting all other requirements documented in this encounter Plan of Treatment Upcoming Encounters Date Type Department Care Team (Late st Contact Info) Description 02/12/2025 1:00 PM CDT Office [facility] - [facility] - [place] #[address] [place] [address] Ronni Simon MD #[address] [address] 03/06/2025 2:15 PM CDT Office [facility] - Internal [facility] - [place] [address] [facility] [place] [address] Corrina Lou, PAC [address] [place] [address] 03/16/2025 8:30 AM CDT [facility] [place] [address] Aldo Perez MD #[address] [address] 03/16/2025 8:30 AM CDT - 03/16/2025 9:00 AM CDT Surgery [facility] 1 [place] [address] Aldo Perez MD #[address] [address] COLONOSCOPY Scheduled Procedures Name Priority Associated Diagnoses Date/Ti me COLONOSCOPY SCREENING FOR COLON CANCER 03/16/2025 8:30 AM CDT documented as of this encounter Visit Diagnoses Not on filedocumented in this encounter Additional Health Concerns Assessment Noted Time PHQ-9 Depression Total Score: 0 01/06/20 21 9:00 AM INFORMATION CODER documented as of this encounter Care Teams Winter Intern Relationship Specialty Start Date End Date Ronni Simon MD #[address] [address] PCP - General Family Medicine 09/12/15 documented as of this encounter
--- OUTSIDE RECORDS SUMMARY | 2025-01-28 13:49 | XMS_ITS | Encounter Summary ---
Author Organization [facility] Address [address] [place] [address] Phone Care Team Providers Care Biopsychologist Name Role Phone Ronni Simon MD Primary Care Provider [phone]- [phone] Reason for Visit * Reason Comments Medication Refill Encounter Details Date Type Department Care Team (Late st Contact Info) Description 09/27/2020 Refill [facility] #2 [place] [address] Ronni Simon MD #[address] [address] Medication Refill Social History Tobacco Use Types [...] COVID-19? No / Unsure 09/28/2020 8:53 AM PRODUCTION GRADER documented as of this encounter Miscellaneous Notes [...] Outpatient Visits 2 months ago Hypertension, essential [facility] Medical [facility] Family [facility] - Ronni Hu MD 5 months ago Chronic neck pain [facility] - Ronni Hu MD 6 months ago Neck pain [facility] Medical [facility] - Ronni Hu MD 9 months ago Hyperlipidemia, unspecified hyperlipidemia type [facility] - Ronni Hu MD 1 year ago Injury of right foot, initial encounter [facility] Carlos Ferrara APN, STREET LIGHT SERVICER SUPERVISOR Upcoming Appointments Future Appointments Tomorrow [address], [facility] In [facility] month [facility] RADIOTELEPHONE TECHNICAL OPERATOR - Recent and Past Visits Recent Visits Date Type Provider Dept 07/27/20 Office Visit Rnoni Simon MD [facility] 04/22/20 Office Visit Ronni Simon MD [facility] 03/25/20 Office Visit Ronni Simon MD [facility] 12/18/19 Office Visit Ronni Simon MD [facility] 09/18/19 Office Visit Carlos Winslow APN, RADHA [facility] [place] 08/06/19 Office Visit [...] authorizing provider and meeting all other requirements UCTION GRADER documented in this encounter Plan of Treatment Upcoming Encounters Date Type Department Care Team (Late st Contact Info) Description 02/12/2025 1:00 PM CDT Office Visit [facility] Family [facility] #2 [place] [address] Ronni Simon MD #[address] [address] 03/06/2025 2:15 PM CDT Office Visit [facility] - Internal Medicine - [place] [address] [place] [address] Corrina Lou, [facility] [address] [place] [address] 03/16/2025 8:30 AM CDT Hospital Encounter [facility] Gi Lab Periop 1 [place] [address] Aldo Perez MD #[address] [address] 03/16/2025 8:30 AM CDT - 03/16/2025 9:00 AM CDT Surgery [facility] Gi Lab Periop 1 [place] [address] Aldo Perez MD #[address] [address] COLONOSCOPY Scheduled Procedures Name Priority Associated Diagnoses Date/Ti me COLONOSCOPY SCREENING FOR COLON CANCER 03/16/2025 8:30 AM CDT documented as of this encounter Visit Diagnoses Not on filedocumented in this encounter Additional Health Concerns Assessment Noted Time PHQ-9 Depression Total Score: 0 04/22/20 20 1:00 PM CDT documented as of this encounter Care Teams Biopsychologist Relationship Specialty Start Date End Date Ronni Simon MD #2 [place] [id number] PCP - General Family Medicine 09/12/15 documented as of this encounter
--- OUTSIDE RECORDS SUMMARY | 2025-01-28 13:49 | XMS_ITS | Encounter Summary ---
Author Organization [facility] Address [address] [place] [address] Phone Care Team Providers Care Director Business Travel Name Role Phone Ronni Simon MD Primary Care Provider [phone]- [phone] Reason for Visit * Reason Comments Medication Refill Encounter Details Date Type Department Care Team (Late st Contact Info) Description 07/12/2022 Refill [facility] #2 [place] [address] Ronni Simon MD #[address] [address] Medication Refill Social History Tobacco Use Types [...] Description 02/12/2025 1:00 PM CDT Office Visit [facility] Family [facility] #2 [place] [address] Ronni Simon MD #[address] [address] 03/06/2025 2:15 PM CDT Office Visit [facility] Internal Medicine - [place] [address] [facility] [place] [address] Corrina Lou, [facility] [address] [place] [address] 03/16/2025 8:30 AM CDT Hospital Encounter [facility] Gi Lab Periop 1 [place] [address] Aldo Perez MD #[address] [address] 03/16/2025 8:30 AM CDT - 03/16/2025 9:00 AM CDT Surgery [facility] Gi Lab Periop 1 [place] [address] Aldo Perez MD #[address] [address] COLONOSCOPY Scheduled Procedures Name Priority Associated Diagnoses Date/Ti me COLONOSCOPY SCREENING FOR COLON CANCER 03/16/2025 8:30 AM CDT documented as of this encounter Visit Diagnoses Diagnosis Insomnia, unspecified type documented in this encounter Additional Health Concerns Assessment Noted Time PHQ-9 Depression Total Score: 0 01/06/20 21 9:00 AM FINANCE BUSINESS MANAGER documented as of this encounter Care Teams Director Business Travel Relationship Specialty Start Date End Date Ronni Simon MD #[address] [address] PCP - General Family Medicine 09/12/15 documented as of this encounter
--- OUTSIDE RECORDS SUMMARY | 2025-01-28 13:49 | XMS_ITS | Continuity of Care Document ---
Author Organization [facility] Address [address] [facility] [address] [place] [address] Phone Care Team Providers Care Hoop Machine Operator Name Role Phone Torito TEJADA, Sean Unavailable [...] Provider Providers Copied on Encounter [facility], [address] [facility] [address], [place], [place], [id number], [place] tel:[phone] OPH CONSULT [place] No Information 8 Torito Estrada. [address], [address], [place], [place], [id number], [place]. tel:[phone] Referring Provider: Sean Krishnasam y, [address], [place], [address] . tel:[phone] [facility], [address] [place] [address], [id number], tel:[phone] [address] [place] [address] No Information 8 Krishnasamy Sean. [address], [address], [place], [place], [id number], [place]. tel:[phone] Referring Provider: Sean peña, [address], [place], [address] . tel:[phone] [facility], [address] [place] [address], [id number], [place] tel:[phone] [address] [place] [address] Eye [facility] [place] No Information 8 Krishnasamy Sena. [address], [address], [place], [place], [id number], [place]. tel:[phone] Referring Provider: Sean peña, [address], [place], [address] . tel:[phone] [facility], [address] [place] [address], [id number], [place] tel:[phone] OPH CONSULT [place] No Information 8 Krishnasamy Sean. [address], [address], [place], [place], [id number], [place]. tel:[phone] [facility], [address] [place] [address], [id number], [place] tel:[phone] OPH CONSULT [place] No Information 8 Krishnasamy Sean. [address], [address], [id number], [place]. tel:[phone] OFFICE/OUTPA TIENT VISIT, [facility], [address] [place] [address], [id number], tel:[phone] Ophth [facility] No Information Torito Estrada. [address] [facility], [address], [place], [place], [id number], . tel:[phone] Referring Provider: Sean peña, [address] [facility] [address], [place], [address] . tel:[phone] Family History Family Member Type Diagnosis Age At Onset No Information Payers Payer name Insurance type Covered democrat ID Authoriza tion(s) Medicare Complete Advantage [facility] [id number] Social History Type Description Quantity Date Captured Comments Sex Male Smoking Status No Information Chief Complaint And Reason For Visit No Information Reason For Referral Reason For Referral No Information History Of Present Illness Encounter Date Complaint History Of Prese nt Illness No Information Functional Status Date Functional Assessmen t No Information Instructions Date Instruction Additional Infor mation No Information Assessments Type Assessment Date No Information Patient Care Teams Name Effective Dates (start - stop) Status Members No Information
--- OUTSIDE RECORDS SUMMARY | 2025-01-28 13:49 | XMS_ITS | Encounter Summary ---
Author Organization [facility] Address [address] [place] [address] Phone Care Team Providers Care Director Of Community Center Name Role Phone Ronni Simon MD Primary Care Provider [phone]- [phone] Reason for Visit * Reason Comments Medication Refill Encounter Details Date Type Department Care Team (Late st Contact Info) Description 09/03/2020 Refill [facility] #2 [place] [address] Ronni Simon MD #[address] [address] Medication Refill Social History Tobacco Use Types [...] COVID-19? No / Unsure 08/30/2020 8:36 AM EXERCISE SCIENTIST documented as of this encounter Miscellaneous Notes [...] Outpatient Visits 1 month ago [facility], [facility]ni Hu MD 4 months ago Chronic neck pain [facility] Ronni Hu MD 5 months ago Neck pain [facility] Ronni Hu MD 8 months ago Hyperlipidemia, unspecified hyperlipidemia type [facility] Ronni Hu MD 11 months ago Injury of right foot, initial encounter [facility] Carlos Ferrara APN, COORDINATING PRODUCER Upcoming Appointments Future Appointments In 1 month Ronni Simon MD [facility] - Anthony [facility] MINERAL WOOL INSULATION SUPERVISOR - Recent and Past Visits Recent [...] Outpatient Visits 1 month ago Hypertension, essential [facility] Ronni Hu MD 4 months ago Chronic neck pain [facility] Ronni Hu MD 5 months ago Neck pain [facility] Ronni Hu MD 8 months ago Hyperlipidemia, unspecified hyperlipidemia type [facility] Ronni Hu MD 11 months ago Injury of right foot, initial encounter [facility] Carlos Ferrara APN, RADHA Upcoming Appointments Future Appointments In 1 month Ronni Simon MD [facility] MINERAL WOOL INSULATION SUPERVISOR - Recent and Past Visits Recent [...] Provider Dept 11/01/20 Appointment Ronni Simon MD [facility] Showing future appointments within next 90 days with a meds authorizing provider and meeting all other requirements CISE SCIENTIST documented in this encounter Plan of Treatment Upcoming Encounters Date Type Department Care Team (Late st Contact Info) Description 02/12/2025 1:00 PM CDT Office Visit [facility] - Family Medicine [facility] #2 [place] [address] Ronni Simon MD #[address] [address] 03/06/2025 2:15 PM CDT Office Visit [facility] Internal Medicine - [place] [address] [place] [address] Corrina Lou, [facility] [address] [place] [address] 03/16/2025 8:30 AM CDT Hospital Encounter [facility] Gi Lab Periop 1 [place] [address] Aldo Perez MD #[address] [address] 03/16/2025 8:30 AM CDT - 03/16/2025 9:00 AM CDT Surgery [facility] Gi Lab Periop 1 [place] [address] Aldo Perez MD #[address] [address] COLONOSCOPY Scheduled Procedures Name Priority Associated Diagnoses Date/Ti me COLONOSCOPY SCREENING FOR COLON CANCER 03/16/2025 8:30 AM CDT documented as of this encounter Visit Diagnoses Not on filedocumented in this encounter Additional Health Concerns Assessment Noted Time PHQ-9 Depression Total Score: 0 04/22/20 20 1:00 PM CDT documented as of this encounter Care Teams Director Of Community Center Relationship Specialty Start Date End Date Ronni Simon MD #2 [place] [address] PCP - General Family Medicine 09/12/15 documented as of this encounter
--- OUTSIDE RECORDS SUMMARY | 2025-01-28 13:49 | XMS_ITS | Encounter Summary ---
Author Organization [facility] Address [address] [place] [address] Phone Care Team Providers Care Auto Service Instructor Name Role Phone Ronni Simon MD Primary Care Provider [phone]- [phone] Reason for Visit * Reason Comments Medication Refill Encounter Details Date Type Department Care Team (Late st Contact Info) Description 02/23/2021 Refill [facility] #2 [place] [address] Ronni Simon MD #[address] [address] Medication Refill Social History Tobacco Use Types [...] Raman RN - 02/25/2021 3:15 PM CDT [employer] message sent to patient regarding outstanding labs [...] Mcfadden CMA - 02/25/2021 9:45 AM CDT AND[employer]ze message sent to patient. * Telephone Encounter - Alexa Raman RN - 02/24/2021 12:14 PM CDT Patient has outstanding lab orders including Lipid documented in this encounter Plan of Treatment Upcoming Encounters Date Type Department Care Team (Late st Contact Info) Description 02/12/2025 1:00 PM CDT Office Visit [facility] - Family [facility] #2 [place] [address] Ronni Simon MD #2 [facility] [address] [place] [address] 03/06/2025 2:15 PM CDT Office Visit [facility] - Internal Medicine [facility] [address] [facility] [place] [address] Corrina Lou, [facility] [address] [place] [address] 03/16/2025 8:30 AM CDT [facility] 1 [place] [address] Aldo Perez MD #2 [facility] [address] [place] [address] 03/16/2025 8:30 AM CDT - 03/16/2025 9:00 AM CDT [facility] 1 [place] [address] Aldo Perez MD #2 [facility] [address] [place] [address] COLONOSCOPY Scheduled Procedures Name Priority Associated Diagnoses Date/Ti me COLONOSCOPY SCREENING FOR COLON CANCER 03/16/2025 8:30 AM CDT documented as of this encounter Visit Diagnoses Not on filedocumented in this encounter Additional Health Concerns Assessment Noted Time PHQ-9 Depression Total Score: 0 01/06/20 21 9:00 AM MIDDLE SCHOOL ART TEACHER documented as of this encounter Care Teams Auto Service Instructor Relationship Specialty Start Date End Date Ronni Simon MD #2 [facility] [address] [place] [address] PCP - General Family Medicine 09/12/15 documented as of this encounter
--- OUTSIDE RECORDS SUMMARY | 2025-01-28 13:49 | XMS_ITS | Encounter Summary ---
Author Organization [facility] Address [address] [place] [address] Phone Care Team Providers Care Echo Vasc Tech Name Role Phone Alfred Ronniradha Rodriguez MD Primary Care Provider +1- [phone] Reason for Visit * Reason Comments Medication Refill Encounter Details Date Type Department Care Team (Late st Contact Info) Description 12/20/2021 Refill [facility] #2 [place] [address] Carlos Winslow APRN, BRIDGE CREW MEMBER #[address] [address] Medication Refill Social History Tobacco Use Types [...] 90 days and meeting all other requirements MANAGER documented in this encounter Plan of Treatment Upcoming Encounters Date Type Department Care Team (Late st Contact Info) Description 02/12/2025 1:00 PM CDT Office Visit [facility] - Family [facility] #2 [place] [address] Ronni Simon MD #[address] [address] 03/06/2025 2:15 PM CDT Office Visit [facility] Medical [facility] - Internal Medicine [facility] [address] [place] [address] Corrina Lou, [facility] [address] [place] [address] 03/16/2025 8:30 AM CDT Hospital Encounter [facility] Gi Lab Periop 1 [place] [address] Aldo Perez MD #[address] [address] 03/16/2025 8:30 AM CDT - 03/16/2025 9:00 AM CDT [facility] 1 [place] [address] Aldo Perez MD #[address] [address] COLONOSCOPY Scheduled Procedures Name Priority Associated Diagnoses Date/Ti me COLONOSCOPY SCREENING FOR COLON CANCER 03/16/2025 8:30 AM CDT documented as of this encounter Visit Diagnoses Not on filedocumented in this encounter Additional Health Concerns Assessment Noted Time PHQ-9 Depression Total Score: 0 01/06/20 21 9:00 AM QC MANAGER documented as of this encounter Care Teams Echo Vasc Tech Relationship Specialty Start Date End Date Ronni Simon MD #[address] [address] PCP - General Family Medicine 09/12/15 documented as of this encounter
--- OUTSIDE RECORDS SUMMARY | 2025-01-28 13:49 | XMS_ITS | Encounter Summary ---
Author Organization [facility] Address [address] [place] [address] Phone Care Team Providers Care Lathe Mechanic Name Role Phone Ronni Simon MD Primary Care Provider +1 [phone] Reason for Visit * Reason Comments Medication Refill Encounter Details Date Type Department Care Team (Late st Contact Info) Description 12/04/2020 Refill [facility] #2 [place] [address] Ronni Simon MD #[address] [address] Medication Refill Social History Tobacco Use Types [...] Visits 2 months ago Chronic neck pain [facility] Ronni Hu MD 4 months ago [facility], [facility] 7 months [facility] Chronic neck pain [facility] Ronni Hu MD 8 months ago [facility] Hyperlipidemia, unspecified hyperlipidemia type [facility] Upcoming Appointments Future Appointments In 1 month Ronni Simon MD [facility] FI[facility] EVIDENCE TECHNIC[facility] - Recent and Past Visits Recent Visits Date Type Provider Dept 10/06/20 Office Visit Ronni Simon MD [facility] 07/27/20 Office Visit Ronni Simon MD [facility] 04/22/20 Office Visit Ronni Simon MD [facility] 03/25/20 Office Visit Ronni Simon MD [facility] 12/18/19 Office Visit Ronni Simon MD [facility] 09/18/19 Office Visit Carlos Winslow APN, DIRECTOR OF EDUCATION [facility] Showing recent visits within past 460 days with a meds authorizing provider and meeting all other requirements Future Appointments Date Type Provider Dept 01/05/21 Appointment Ronni Simon MD [facility] Showing future appointments within next 90 days with a meds authorizing provider and meeting all other requirements CIATE DRAFTER documented in this encounter Plan of Treatment Upcoming Encounters Date Type Department Care Team (Late st Contact Info) Description 02/12/2025 1:00 PM CDT Office Visit [facility] Family [facility] #2 [place] [address] Ronni Simon MD #2 [facility] [address] [place] [address] 03/06/2025 2:15 PM CDT Office Visit [facility] Internal Medicine - [place] [address] [place] [address] Corrina Lou, [facility] [address] [place] [address] 03/16/2025 8:30 AM CDT Hospital Encounter [facility] Gi Lab Periop 1 [place] [address] Aldo Perez MD #[address] [address] 03/16/2025 8:30 AM CDT - 03/16/2025 9:00 AM CDT [facility] 1 [place] [address] Aldo Perez MD #[address] [address] COLONOSCOPY Scheduled Procedures Name Priority Associated Diagnoses Date/Ti me COLONOSCOPY SCREENING FOR COLON CANCER 03/16/2025 8:30 AM CDT documented as of this encounter Visit Diagnoses Diagnosis Insomnia, unspecified type documented in this encounter Additional Health Concerns Assessment Noted Time PHQ-9 Depression Total Score: 0 04/22/20 20 1:00 PM CDT documented as of this encounter Care Teams Lathe Mechanic Relationship Specialty Start Date End Date Ronni Simon MD #2 [place] [address] PCP - General Family Medicine 09/12/15 documented as of this encounter
--- OUTSIDE RECORDS SUMMARY | 2025-01-28 13:49 | XMS_ITS | Clinical Summary ---
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
--- OUTSIDE RECORDS SUMMARY | 2025-01-28 13:49 | XMS_ITS | Encounter Summary ---
Author Organization [facility] Address [address] [facility] [place] [address] Phone Care Team Providers Care Size Changer Name Role Phone Ronni Simon MD Primary Care Provider +1- [phone] Encounter Details Date Type Department Care Team (Late st Contact Info) Description 09/07/2020 Telephone [facility] Center Oncology Services [address] [place] [id number] Mendel Dillard MD [address] [place], [place] [id number] Social History Tobacco Use Types Packs/Day Years [...] COVID-19? No / Unsure 08/30/2020 8:36 AM WATER SOFTENER SERVICER documented as of this encounter Miscellaneous Notes * Telephone Encounter - Karly Burdick - 09/07/2020 10:13 AM CST The patient states that he viewed his labs on myChart, and feels he does not need a 6 month appointment as recommended in Dr. Dillard's May 2020 note. R SOFTENER SERVICER documented in this encounter Plan of Treatment Upcoming Encounters Date Type Department Care Team (Late st Contact Info) Description 02/12/2025 1:00 PM CDT Office Visit [facility] Family Medicine [facility] #2 [place] [address] Ronni Simon MD #2 [facility] [address] [place] [address] 03/06/2025 2:15 PM CDT Office Visit [facility] Internal Medicine [facility] [address] [place] [address] Corrina Lou, [facility] [address] [place] [address] 03/16/2025 8:30 AM CDT Hospital Encounter [facility] Gi Lab Periop 1 [place] [address] Aldo Perez MD #[address] [address] 03/16/2025 8:30 AM CDT - 03/16/2025 9:00 AM CDT [facility] 1 [place] [address] Aldo Perez MD #[address] [address] COLONOSCOPY Scheduled Procedures Name Priority Associated Diagnoses Date/Ti me COLONOSCOPY SCREENING FOR COLON CANCER 03/16/2025 8:30 AM CDT documented as of this encounter Visit Diagnoses Not on filedocumented in this encounter Additional Health Concerns Assessment Noted Time PHQ-9 Depression Total Score: 0 04/22/20 20 1:00 PM CDT documented as of this encounter Care Teams Size Changer Relationship Specialty Start Date End Date Ronni Simon MD #[address] [address] PCP - General Family Medicine 09/12/15 documented as of this encounter
--- OUTSIDE RECORDS SUMMARY | 2025-01-28 13:49 | XMS_ITS | Encounter Summary ---
Author Organization [facility] Address [address] [place] [address] Phone Care Team Providers Care Associate Store Manager Name Role Phone Selina Rosas MD Primary Care Provider +1- [phone] Reason for Visit * Reason Comments Medication Refill Encounter Details Date Type Department Care Team (Late st Contact Info) Description 08/03/2020 Refill [facility] #2 [place] [address] Selina Rosas MD #[address] [address] Medication Refill Social History Tobacco Use Types [...] Sources Source Last Checked for Updates Status [facility] 08/03/2020 11:27 AM History Response Filed documented in this encounter Plan of Treatment Upcoming Encounters Date Type Department Care Team (Late st Contact Info) Description 02/12/2025 1:00 PM CDT Office Visit [facility] Medical [facility] - Family [facility] #2 [place] [address] Selina Rosas MD #[address] [address] 03/06/2025 2:15 PM CDT Office Visit [facility] Medical [facility] - Internal Medicine - [place] [address] [place] [id number] Corrina Lou, [facility] [address] [place] [address] 03/16/2025 8:30 AM CDT Hospital [facility] Per[facility] 1 [place] [address] Aldo Perez MD #[address] [address] 03/16/2025 8:30 AM CDT - 03/16/2025 9:00 AM CDT Surgery [facility] Gi Lab Periop 1 [place] [address] Aldo Perez MD #[address] [address] COLONOSCOPY Scheduled Procedures Name Priority Associated Diagnoses Date/Ti wv COLONOSCOPY SCREENING FOR COLON CANCER 03/16/2025 8:30 AM CDT documented as of this encounter Visit Diagnoses Not on filedocumented in this encounter Additional Health Concerns Assessment Noted Time PHQ-9 Depression Total Score: 0 04/22/20 20 1:00 PM CDT documented as of this encounter Care Teams Associate Store Manager Relationship Specialty Start Date End Date Selina Rosas MD #[address] [address] PCP - General Family Medicine 09/12/15 documented as of this encounter
--- OUTSIDE RECORDS SUMMARY | 2025-01-28 13:49 | XMS_ITS | Encounter Summary ---
Author Organization [facility] Address [address] [place] [address] Phone Care Team Providers Care End Packer Name Role Phone Ronni Simon MD Primary Care Provider [phone]- [phone] Reason for Visit * Reason Comments Medication Refill Encounter Details Date Type Department Care Team (Late st Contact Info) Description 07/06/2020 Refill [facility] #2 [place] [address] Ronni Simon MD #[address] [address] Medication Refill Social History Tobacco Use Types [...] ago Chronic neck pain [facility] Ronni Simon MD 3 months ago [facility]ck pain [facility] Ronni Simon MD 6 months ago Hyperlipidemia, unspecified hyperlipidemia type [facility] Ronni Simon MD 9 months ago Injury of right foot, initial encounter [facility] BRIGHT PHYSICIAN [facility] Carlos Winslow APN, PAYROLL AND BENEFITS COORDINATOR 11 months ago Right knee pain, unspecified chronicity [facility] Ronni Simon MD Upcoming Appointments Future Appointments In 3 weeks Ronni Simon MD [facility] PHYSICIAN [facility], [facility] 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 - Recent and Past Visits Recent Visits Date Type Provider Dept 04/22/20 Office Visit Ronni Simon MD [facility] 03/25/20 Office Visit Ronni Simon MD [facility] 12/18/19 Office Visit Ronni Simon MD [facility] 09/18/19 Office Visit Carlos Winslow APN, PAYROLL AND BENEFITS COORDINATOR [facility] 08/06/19 Office Visit Ronni [...] Office Visit [facility] #2 [place] [address] Ronni Simon MD #[address] [address] 03/06/2025 2:15 PM CDT Office Visit [facility] Internal Medicine [facility] [address] [place] [address] Corrina Lou, [facility] [address] [place] [address] 03/16/2025 8:30 AM CDT Hospital Encounter [facility] Gi Lab Periop 1 [place] [address] Aldo Perez MD #[address] [address] 03/16/2025 8:30 AM CDT - 03/16/2025 9:00 AM CDT Surgery [facility] Gi Lab Periop 1 [place] [address] Aldo Perez MD #[address] [address] COLONOSCOPY Scheduled Procedures Name Priority Associated Diagnoses Date/Ti me COLONOSCOPY SCREENING FOR COLON CANCER 03/16/2025 8:30 AM CDT documented as of this encounter Visit Diagnoses Not on filedocumented in this encounter Additional Health Concerns Assessment Noted Time PHQ-9 Depression Total Score: 0 04/22/20 20 1:00 PM CDT documented as of this encounter Care Teams End Packer Relationship Specialty Start Date End Date Ronni Simon MD #2 [place] [id number] PCP - General Family Medicine 09/12/15 documented as of this encounter
--- OUTSIDE RECORDS SUMMARY | 2025-01-28 13:49 | XMS_ITS | Encounter Summary ---
Author Organization [facility] Address [address] [place] [address] Phone Care Team Providers Care Food Science Technician Name Role Phone Ronni Simon MD Primary Care Provider [phone]- [phone] Reason for Visit * Reason Comments Medication Refill Encounter Details Date Type Department Care Team (Late st Contact Info) Description 01/18/2023 Refill [facility] #2 [place] [address] Ronni Simon MD #[address] [address] Medication Refill Social History Tobacco Use Types [...] Dept 11/06/22 Office Visit Carlos Winslow APRN, IN SERVICE EDUCATOR [facility] 09/04/22 [facility] 03/01/22 Office Visit Ronni Simon MD [facility] [place] Showing recent visits within past [...] Description 02/12/2025 1:00 PM CDT Office Visit [facility] - [place] #2 [facility] [place] [address] Ronni Simon MD #[address] [place] [address] 03/06/2025 2:15 PM CDT Office Visit [facility] - [place] [address] [facility] [place] [place] [address] Corrina Lou, PAC [address] [facility] [facility] [place] [address] 03/16/2025 8:30 AM CDT [facility] 1 [place] [address] Aldo Perez MD #[address] [address] 03/16/2025 8:30 AM CDT - 03/16/2025 9:00 AM CDT [facility] Periop 1 [place] [address] Aldo Perez MD #[address] [address] COLONOSCOPY Scheduled Procedures Name Priority Associated Diagnoses Date/Ti az COLONOSCOPY SCREENING FOR COLON CANCER 03/16/2025 8:30 AM CDT documented as of this encounter Visit Diagnoses Not on filedocumented in this encounter Additional Health Concerns Assessment Noted Time PHQ-9 Depression Total Score: 0 01/06/20 21 9:00 AM MID LEVEL CLINICIAN documented as of this encounter Care Teams Food Science Technician Relationship Specialty Start Date End Date Ronni Simon MD #2 [facility] [address] [place] [address] PCP - General Family Medicine 09/12/15 documented as of this encounter
--- OUTSIDE RECORDS SUMMARY | 2025-01-28 13:49 | XMS_ITS | Encounter Summary ---
Author Organization [facility] Address [address] [place] [address] Phone Care Team Providers Care Director Of Special Education Name Role Phone Ronni Simon MD Primary Care Provider +1- [phone] Reason for Visit * Reason Comments Medication Refill Encounter Details Date Type Department Care Team (Late st Contact Info) Description 08/18/2020 Refill [facility] #2 [place] [address] Ronni Simon MD #[address] [address] Medication Refill Social History Tobacco Use Types [...] CDT Office Visit [facility] Family [facility] #2 [place] [address] Ronni Simon MD #[address] [address] 03/06/2025 2:15 PM CDT Office Visit [facility] Internal Medicine - [place] [address] [place] [address] Corrina Lou, [facility] [address] [place] [address] 03/16/2025 8:30 AM CDT Hospital Encounter [facility] Gi Lab Periop 1 [place] [address] Aldo Perez MD #[address] [address] 03/16/2025 8:30 AM CDT - 03/16/2025 9:00 AM CDT [facility] 1 [place] [address] Aldo Perez MD #[address] [address] COLONOSCOPY Scheduled Procedures Name Priority Associated Diagnoses Date/Ti me COLONOSCOPY SCREENING FOR COLON CANCER 03/16/2025 8:30 AM CDT documented as of this encounter Visit Diagnoses Not on filedocumented in this encounter Additional Health Concerns Assessment Noted Time PHQ-9 Depression Total Score: 0 04/22/20 20 1:00 PM CDT documented as of this encounter Care Teams Director Of Special Education Relationship Specialty Start Date End Date Ronni Simon MD #[address] [address] PCP - General Family Medicine 09/12/15 documented as of this encounter
--- OUTSIDE RECORDS SUMMARY | 2025-01-28 13:49 | XMS_ITS | Encounter Summary ---
Author Organization [facility] Address [address] [place] [address] Phone Care Team Providers Care Junior Java Developer Name Role Phone Ronni Simon MD Primary Care Provider +1- [phone] Encounter Details Date Type Department Care Team (Late Contact Info) Description 04/03/2024 [facility] 1 [place] [address] Eddi Skaggs MD #1 [place] [address] Social History Tobacco Use Types Packs/Day Years [...] Office Visit [facility] Family [facility] #2 [place] [address] Ronni Simon MD #[address] [address] 03/06/2025 2:15 PM CDT Office Visit [facility] Medical [facility] - Internal Medicine - [place] [address] [place] [address] Corrina Lou, PAC [address] [place] [address] 03/16/2025 8:30 AM CDT Hospital Encounter [facility] Gi Lab Periop 1 [place] [address] Aldo Perez MD #[address] [address] 03/16/2025 8:30 AM CDT - 03/16/2025 9:00 AM CDT Surgery [facility] Gi Lab Periop 1 [place] [address] Aldo Perez MD #[address] [address] COLONOSCOPY Scheduled Procedures Name Priority Associated Diagnoses Date/Ti me COLONOSCOPY SCREENING FOR COLON CANCER 03/16/2025 8:30 AM CDT documented as of this encounter Visit Diagnoses Not on filedocumented in this encounter Additional Health Concerns Assessment Noted Time PHQ-9 Depression Total Score: 0 01/06/20 21 9:00 AM FLIGHT RADIO OPERATOR documented as of this encounter Care Teams Junior Java Developer Relationship Specialty Start Date End Date Ronni Simon MD #[address] [address] PCP - General Family Medicine 09/12/15 documented as of this encounter
--- OUTSIDE RECORDS SUMMARY | 2025-01-28 13:49 | XMS_ITS | Referral Summary ---
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 Gender Identity Not on file Sexual Orientation [...] Plan of Treatment Not on file Insurance [employer] PPO [employer] * Guarantor: Vamsi Laguerre Account Type Relation to Patient Date of Phone Billing Address Personal/Family Self 1950 [address] [place] [address] Advance Directives For more information, please contact: [phone] * Full Code (Latest Code Status on File) Date Activated Date Inactivated Comments 03/09/2018 11:46 PM 03/11/2018 8:26 PM Care Teams Cancellation Clerk Relationship Specialty Start Date End Date Ronni Simon MD [address] [address] PCP - General Family Medicine 05/28/24
--- OUTSIDE RECORDS SUMMARY | 2025-01-28 13:49 | XMS_ITS | Clinical Summary ---
Author Organization [facility] Address [address] [address] Phone Care Team Providers Care Spring Assembler Name Role Phone Ronni Simon MD Primary Care Provider +1- [phone] Allergies No known active allergies Medications Multiple [...] Type Department Care Team Description 11/28/2024 [facility] [place] [address] Ronni Simon MD Medication Refill 11/26/2024 Travel 11/20/2024 Documentation Only [facility] #[address] [place] [address] Ronni Simon MD 11/07/2024 Telephone [facility] #[address] [place] [address] Ronni Simon MD 10/30/2024 3:00 PM DEALER SALES REP Office Visit [facility] - General [facility] - [place] [address] [address] Aldo Perez MD Special screening for malignant neoplasms, colon (Primary Dx) Discharge Disposition: Discharged to home or Selfcare 10/30/2024 Travel from Last 3 Months Immunizations Immunization Administration [...] drink = 0.6 oz pur e alcohol) [facility] Utilities Answer Date Recorded In the past [...] often do you attend chur ch or alevism services? More than 4 times per year 09/03/2024 Do you belong to any clubs o r organizations such as restoration groups, unions, fraternal or athletic groups, or [...] Total Score - Questions 1-9 0 01/2022 [facility] of Occupat ional [facility] - Occupational Stress Questionnaire Answer Date Recorded [...] any time in the past 12 m [facility], were you homeless or living in a alf (including now)? No 09/03/2024 Education Answer Date [...] Comments Blood Pressure 160/88 10/30/2024 3:15 PM DEALER SALES REP Pulse 73 10/30/2024 3:15 PM DEALER SALES REP Temperature 36.6 C (97.8 F) 10/30/2024 3:15 PM DEALER SALES REP Respiratory Rate 16 09/22/2024 8:44 AM DEALER SALES REP Oxygen Saturation 96% 10/30/2024 3:15 PM DEALER SALES REP Inhaled Oxygen Concentration - - Weight 90.3 kg (199 lb) 11/26/2024 2:29 PM DEALER SALES REP Height 172.7 cm (5' 8 ) 11/26/2024 2:29 PM DEALER SALES REP Body Mass Index 30.26 11/26/2024 2:29 PM DEALER SALES REP Plan of Treatment Upcoming Encounters Date Type Department Care Team (Late st Contact Info) Description 02/12/2025 1:00 PM CDT Office Visit [facility] - Family [facility] #2 [place] [address] Ronni Simon MD #[address] [address] 03/06/2025 2:15 PM CDT Office Visit [facility] Medical [facility] - Internal Medicine [facility] [address] [place] [address] Corrina Lou, [facility] [address] [place] [address] 03/16/2025 8:30 AM CDT [facility] 1 [place] [address] Aldo Perez MD #[address] [address] 03/16/2025 8:30 AM CDT - 03/16/2025 9:00 AM CDT [facility] 1 [place] [address] Aldo Perez MD #[address] [address] COLONOSCOPY Scheduled Procedures Name Priority Associated Diagnoses [...] Influenza Immunization (#1) 2024 07/13/2011 SARS-COV-2 Immunization (1 - season) 2024 Colonoscopy High Risk Discontinued [...] Procedure Name Priority Date/Time Associated Diagnosis Comments XR - LOWER EXTREMITY 01/06/2025 12:00 AM CDT ORTHOPEDIC PROCEDURE 01/06/2025 12:00 AM CDT STOOL, OCCULT BLOOD, SCREEN Routine 07/12/2019 HEPATITIS C ANTIBODY Routine 09/23/2018 10:08 AM DEALER SALES REP Encounter for hepatitis C screening test for low risk patient HM COLONOSCOPY Routine 02/10/2015 from Last 3 Months or Most Recently Relevant to Health Maintenance Results * ORTHOPEDIC PROCEDURE (01/06/2025 12:00 AM CDT) 01/06/2025 us Provider Scan GEN ORDERS Final Result SCAN * XR - LOWER EXTREMITY (01/06/2025 12:00 AM CDT) 01/06/2025 us Provider Scan IMG DIAGNOSTIC ORDERABLES Final Result Performing Organization Address City/[facility]/ZIP Co de Phone Number SCAN * STOOL, OCCULT BLOOD, SCREEN FOR CA (07/12/2019) Stool specimen (specimen) STOOL SPECIMEN / Unknown us Not On File Provider URINE ORDERABLES Final Resu lt * HEPATITIS C ANTIBODY (09/23/2018 10:08 AM DEALER SALES REP) hepatitis C antibody 0.07 <1 S/CO 09/23/2018 9:53 PM DEALER SALES REP [facility] Comment: Signal/Cutoff ratio < 0.79 is Nondetected Signal/Cutoff ratio 0.80-0.99 is Grayzone Signal/Cutoff ratio > 0.99 is Detected Supplemental assays are recommended if signal/cutoff ratio is >/=1.00. Signal/cutoff ratio result >/= 5.00 is 97% predictive of positivity for recombinant immunoblot assay (RIBA) and will be reported to the [place] Department of Public [facility] as required. Blood specimen (specimen) Venipuncture / Unknown 09/23/2018 10:08 AM DEALER SALES REP 09/23/2018 10:08 AM DEALER SALES REP us Ronni Simon MD CHEMISTRY ORDERABLES Final Result [facility] [address] [place] [address], * COLONOSCOPY (02/10/2015) us Rome Fernandes MD PROCEDURE/MINOR SURGICAL OR DERABLES Final Result from Last 3 Months or Most Recently Relevant to Health Maintenance Insurance MEDICARE C E[employer] Care Teams Spring Assembler Relationship Specialty Start Date End Date Ronni Simon MD #[address] [address] PCP - General Family Medicine 09/12/15
[2025-01-28] MEDS: ONDANSETRON INJ 4 MG/2 ML VIAL IV PUSH (15:10)
[2025-01-28] MEDS: MORPHINE SULFATE (*CRX) 4 MG/ML INJ IV PUSH (15:10)
--- OUTSIDE RECORDS SUMMARY | 2025-01-28 15:11 | XMS_ITS | Encounter Summary ---
Author Organization [facility] Address [address] [place] [address] Phone Care Team Providers Care Director Of Construction Name Role Phone Ronni Simon MD Primary Care Provider +1- [phone] Reason for Visit * Reason Comments Medication Refill Encounter Details Date Type Department Care Team (Late st Contact Info) Description 07/06/2021 Refill [facility] [address] [place] [address] Ronni Simon MD #[address] [address] Medication Refill Social History Tobacco [...] [place] 07/27/20 Office [facility] Show[facility] recent visits within past 365 days and meeting all other requirements Future Appointments No visits were found meeting these conditions. Showing future appointments within next 90 days and meeting all other requirements documented in this encounter Plan of Treatment Upcoming Encounters Date Type Department Care Team (Late st Contact Info) Description 02/12/2025 1:00 PM CDT Office Visit [facility] - Family [facility] #2 [place] [address] Ronni Simon MD #[address] [address] 03/06/2025 2:15 PM CDT Office Visit [facility] Medical [facility] - Internal Medicine [facility] [address] [place] [address] Corrina Lou, [facility] [address] [place] [address] 03/16/2025 8:30 AM CDT [facility] 1 [place] [address] Aldo Perez MD #[address] [address] 03/16/2025 8:30 AM CDT - 03/16/2025 9:00 AM CDT [facility] 1 [place] [address] Aldo Perez MD #[address] [address] COLONOSCOPY Scheduled Procedures Name Priority Associated Diagnoses Date/Ti me COLONOSCOPY SCREENING FOR COLON CANCER 03/16/2025 8:30 AM CDT documented as of this encounter Visit Diagnoses Not on filedocumented in this encounter Additional Health Concerns Assessment Noted Time PHQ-9 Depression Total Score: 0 01/06/20 21 9:00 AM HAND III CUTTER documented as of this encounter Care Teams Director Of Construction Relationship Specialty Start Date End Date Ronni Simon MD #2 [facility] [address] [place] [address] PCP - General Family Medicine 09/12/15 documented as of this encounter
--- OUTSIDE RECORDS SUMMARY | 2025-01-28 15:11 | XMS_ITS | Encounter Summary ---
Author Organization [facility] Address [address] [place] [address] Phone Care Team Providers Care Indigo Mixer Name Role Phone Ronni Simon MD Primary Care Provider [phone]- [phone] Reason for Visit * Reason Comments Medication Refill Encounter Details Date Type Department Care Team (Late st Contact Info) Description 02/23/2021 Refill [facility] #2 [place] [address] Ronni Simon MD #[address] [address] Medication Refill Social History Tobacco Use Types [...] Raman RN - 02/25/2021 3:15 PM CDT AIRVEND[employer] message sent to patient regarding outstanding labs [...] Mcfadden CMA - 02/25/2021 9:45 AM CDT [employer] message sent to patient. * Telephone Encounter - Alexa Raman RN - 02/24/2021 12:14 PM CDT Patient has outstanding lab orders including Lipid documented in this encounter Plan of Treatment Upcoming Encounters Date Type Department Care Team (Late st Contact Info) Description 02/12/2025 1:00 PM CDT Office Visit [facility] - Family [facility] #2 [place] [address] Ronni Simon MD #2 [facility] [address] [place] [address] 03/06/2025 2:15 PM CDT Office Visit [facility] - Internal Medicine [facility] [address] [facility] [place] [address] Corrina Lou, [facility] [address] [place] [address] 03/16/2025 8:30 AM CDT [facility] 1 [place] [address] Aldo Perez MD #2 [facility] [address] [place] [address] 03/16/2025 8:30 AM CDT - 03/16/2025 9:00 AM CDT [facility] 1 [place] [address] Aldo Perez MD #2 [facility] [address] [place] [address] COLONOSCOPY Scheduled Procedures Name Priority Associated Diagnoses Date/Ti me COLONOSCOPY SCREENING FOR COLON CANCER 03/16/2025 8:30 AM CDT documented as of this encounter Visit Diagnoses Not on filedocumented in this encounter Additional Health Concerns Assessment Noted Time PHQ-9 Depression Total Score: 0 01/06/20 21 9:00 AM DESKTOP SUPPORT MANAGER documented as of this encounter Care Teams Indigo Mixer Relationship Specialty Start Date End Date Ronni Simon MD #2 [facility] [address] [place] [address] PCP - General Family Medicine 09/12/15 documented as of this encounter
--- OUTSIDE RECORDS SUMMARY | 2025-01-28 15:11 | XMS_ITS | Encounter Summary ---
Author Organization [facility] Address [address] [place] [address] Phone Care Team Providers Care Publicist Name Role Phone Ronni Simon MD Primary Care Provider [phone] [phone] Reason for Visit * Reason Comments Medication Refill Encounter Details Date Type Department Care Team (Late st Contact Info) Description 12/04/2020 Refill [facility] #2 [place] [address] Ronni Simon MD #[address] [address] Medication Refill Social History Tobacco Use Types [...] Visits 2 months ago Chronic neck pain [facility] Ronni Hu MD 4 months ago [facility]pertension, [facility] 7 months [facility] Chronic neck pain [facility] Ronni Hu MD 8 months ago [facility] 11 months ago Hyperlipidemia, unspecified hyperlipidemia type [facility] Upcoming Appointments Future Appointments In 1 month Ronni Simon MD [facility] BOAT CLEANING SUPERVISOR - Recent and Past Visits Recent Visits Date Type Provider Dept 10/06/20 Office Visit Ronni Simon MD [facility] 07/27/20 Office Visit Ronni Simon MD [facility] 04/22/20 Office Visit Ronni Simon MD [facility] 03/25/20 Office Visit Ronni Simon MD [facility] 12/18/19 Office Visit Ronni Simon MD [facility] 09/18/19 Office Visit Carlos Winslow APN, TRIMMING MACHINE SET UP OPERATOR [facility] Showing recent visits within past 460 days with a meds authorizing provider and meeting all other requirements Future Appointments Date Type Provider Dept 01/05/21 Appointment Ronni Simon MD [facility] Showing future appointments within next 90 days with a meds authorizing provider and meeting all other requirements INE CHAIN MAKER documented in this encounter Plan of Treatment Upcoming Encounters Date Type Department Care Team (Late st Contact Info) Description 02/12/2025 1:00 PM CDT Office Visit [facility] Family [facility] #2 [place] [address] Ronni Simon MD #2 [facility] [address] [place] [address] 03/06/2025 2:15 PM CDT Office Visit [facility] Internal Medicine - [place] [address] [place] [address] Corrina Lou, [facility] [address] [place] [address] 03/16/2025 8:30 AM CDT Hospital Encounter [facility] Gi Lab Periop 1 [place] [address] Aldo Perez MD #[address] [address] 03/16/2025 8:30 AM CDT - 03/16/2025 9:00 AM CDT [facility] 1 [place] [address] Aldo Perez MD #[address] [address] COLONOSCOPY Scheduled Procedures Name Priority Associated Diagnoses Date/Ti me COLONOSCOPY SCREENING FOR COLON CANCER 03/16/2025 8:30 AM CDT documented as of this encounter Visit Diagnoses Diagnosis Insomnia, unspecified type documented in this encounter Additional Health Concerns Assessment Noted Time PHQ-9 Depression Total Score: 0 04/22/20 20 1:00 PM CDT documented as of this encounter Care Teams Publicist Relationship Specialty Start Date End Date Ronni Simon MD #2 [place] [address] PCP - General Family Medicine 09/12/15 documented as of this encounter
--- OUTSIDE RECORDS SUMMARY | 2025-01-28 15:11 | XMS_ITS | Encounter Summary ---
Author Organization [facility] Address [address] [place] [address] Phone Care Team Providers Care Post Graduate Intern Name Role Phone Ronni Simon MD Primary Care Provider +1 [phone] Reason for Visit * Reason Comments Medication Refill Encounter Details Date Type Department Care Team (Late st Contact Info) Description 04/02/2021 Refill [facility] #2 [place] [address] Ronni Simon MD #[address] [address] Medication Refill Social History Tobacco Use Types [...] Raman, RN - 04/04/2021 1:20 PM CDT [place] 01/10/21 Medication failed the protocol, provider [...] 1 month ago Chronic neck pain [facility] Ronni Hu MD 2 months ago Insomnia, unspecified type [facility] 6 months ago Chronic neck pain [facility] Ronni Hu MD 8 months ago Hypertension, essential [facility] 11 months ago Chronic neck pain [facility] Ronni Hu MD Upcoming Appointments Future Appointments In 1 week Ronni Simon MD [facility] RECREATIONAL FACILITIES MOTEL MANAGER - Recent and Past Visits Recent [...] Description 02/12/2025 1:00 PM CDT Office Visit [facility] Family [facility] #2 [place] [address] Ronni Simon MD #2 [facility] [address] [place] [address] 03/06/2025 2:15 PM CDT Office Visit [facility] Internal Medicine - [place] [address] [place] [address] Corrina Lou, [facility] [address] [facility] [facility] [place] [address] 03/16/2025 8:30 AM CDT Hospital Encounter [facility] Gi Lab Periop 1 [place] [address] Aldo Perez MD #[address] [address] 03/16/2025 8:30 AM CDT - 03/16/2025 9:00 AM CDT Surgery [facility] Gi Lab Periop 1 [place] [address] Aldo Perez MD #[address] [address] COLONOSCOPY Scheduled Procedures Name Priority Associated Diagnoses Date/Ti me COLONOSCOPY SCREENING FOR COLON CANCER 03/16/2025 8:30 AM CDT documented as of this encounter Visit Diagnoses Diagnosis Insomnia, unspecified type documented in this encounter Additional Health Concerns Assessment Noted Time PHQ-9 Depression Total Score: 0 01/06/20 21 9:00 AM STACKING MACHINE OPERATOR documented as of this encounter Care Teams Post Graduate Intern Relationship Specialty Start Date End Date Ronni Simon MD #[address] [address] PCP - General Family Medicine 09/12/15 documented as of this encounter
--- OUTSIDE RECORDS SUMMARY | 2025-01-28 15:11 | XMS_ITS | Encounter Summary ---
Author Organization [facility] Address [address] [facility] [place] [address] Phone Care Team Providers Care Nut Culler Name Role Phone Ronni Simon MD Primary Care Provider +1- [phone] Reason for Visit * Reason Comments Medication Refill Encounter Details Date Type Department Care Team (Late st Contact Info) Description 05/30/2021 Refill [facility] [address] [place] [address] Ronni Simon MD #[address] [address] Medication Refill Social History Tobacco [...] 02/08/21 Office Visit Ronni Simon MD [facility] 01/05/21 Office Visit Ronni Simon MD [facility] 10/06/20 Office Visit Ronni Simon MD [facility] [place] 07/27/20 Office Visit Ronni Simon MD [facility] Showing recent visits within past 365 days and meeting all other requirements Future Appointments No visits were found meeting these conditions. Showing future appointments within next 90 days and meeting all other requirements documented in this encounter Plan of Treatment Upcoming Encounters Date Type Department Care Team (Late st Contact Info) Description 02/12/2025 1:00 PM CDT Office Visit [facility] Medical Group - Family Medicine - [place] #[address] [place] [address] Ronni Simon MD [address] [address] 03/06/2025 2:15 PM CDT Office Visit [facility] - Internal Medicine - [place] [address] [facility] [place] [address] Corrina Lou, PAC [address] [facility] [place] [address] 03/16/2025 8:30 AM CDT [facility] 1 [place] [address] Aldo Perez MD #[address] [address] 03/16/2025 8:30 AM CDT - 03/16/2025 9:00 AM CDT [facility] 1 [place] [address] Aldo Perez MD #[address] [address] COLONOSCOPY Scheduled Procedures Name Priority Associated Diagnoses Date/Ti me COLONOSCOPY SCREENING FOR COLON CANCER 03/16/2025 8:30 AM CDT documented as of this encounter Visit Diagnoses Not on filedocumented in this encounter Additional Health Concerns Assessment Noted Time PHQ-9 Depression Total Score: 0 01/06/20 21 9:00 AM RADIATOR TESTER documented as of this encounter Care Teams Nut Culler Relationship Specialty Start Date End Date Ronni Simon MD #[address] [address] PCP - General Family Medicine 09/12/15 documented as of this encounter
--- OUTSIDE RECORDS SUMMARY | 2025-01-28 15:11 | XMS_ITS | Encounter Summary ---
Author Organization [facility] Address [address] [place] [address] Phone Care Team Providers Care Citizenship Teacher Name Role Phone Ronni Simon MD Primary Care Provider +1- [phone] Reason for Visit * Reason Comments Medication Refill Encounter Details Date Type Department Care Team (Late st Contact Info) Description 07/09/2021 Refill [facility] [address] [place] [address] Ronni Simon MD #[address] [address] Medication Refill Social History Tobacco [...] [place] 07/27/20 Office Visit [facility] MD [facility] [place] Showing recent visits within past 365 days and meeting all other requirements Future Appointments No visits were found meeting these conditions. Showing future appointments within next 90 days and meeting all other requirements documented in this encounter Plan of Treatment Upcoming Encounters Date Type Department Care Team (Late st Contact Info) Description 02/12/2025 1:00 PM CDT Office Visit [facility] - Family Medicine [facility] #2 [place] [address] Ronni Simon MD #[address] [address] 03/06/2025 2:15 PM CDT Office Visit [facility] - Internal Medicine [facility] [address] [place] [address] Corrina Lou, PAC [address] [place] [address] 03/16/2025 8:30 AM CDT [facility] 1 [place] [address] Aldo Perez MD #[address] [address] 03/16/2025 8:30 AM CDT - 03/16/2025 9:00 AM CDT [facility] 1 [place] [address] Aldo Perez MD #[address] [address] COLONOSCOPY Scheduled Procedures Name Priority Associated Diagnoses Date/Ti me COLONOSCOPY SCREENING FOR COLON CANCER 03/16/2025 8:30 AM CDT documented as of this encounter Visit Diagnoses Not on filedocumented in this encounter Additional Health Concerns Assessment Noted Time PHQ-9 Depression Total Score: 0 01/06/20 21 9:00 AM RESIDENTIAL CARPENTER documented as of this encounter Care Teams Citizenship Teacher Relationship Specialty Start Date End Date Ronni Simon MD #[address] [address] PCP - General Family Medicine 09/12/15 documented as of this encounter
--- OUTSIDE RECORDS SUMMARY | 2025-01-28 15:11 | XMS_ITS | Encounter Summary ---
Author Organization [facility] Address [address] [place] [address] Phone Care Team Providers Care Script Manager Name Role Phone Ronni Simon MD Primary Care Provider +1- [phone] Reason for Visit * Reason Comments Medication Refill Encounter Details Date Type Department Care Team (Late st Contact Info) Description 06/06/2021 Refill [facility] [address] [place] [address] Ronni Simon MD #[address] [address] Medication Refill Social History Tobacco Use Types [...] 1:00 PM CDT [facility] Visit [facility] #2 [place] [address] Ronni Simon MD #[address] [address] 03/06/2025 2:15 PM CDT [facility] [address] [facility] [place] [address] Corrina Lou, [facility] [address] [place] [address] 03/16/2025 8:30 AM CDT Hospital Encounter [facility] Gi Lab Periop 1 [place] [address] Aldo Perez MD #[address] [address] 03/16/2025 8:30 AM CDT - 03/16/2025 9:00 AM CDT Surgery [facility] Gi Lab Periop 1 [place] [address] Aldo Perez MD #[address] [address] COLONOSCOPY Scheduled Procedures Name Priority Associated Diagnoses Date/Ti me COLONOSCOPY SCREENING FOR COLON CANCER 03/16/2025 8:30 AM CDT documented as of this encounter Visit Diagnoses Diagnosis Insomnia, unspecified type documented in this encounter Additional Health Concerns Assessment Noted Time PHQ-9 Depression Total Score: 0 01/06/20 21 9:00 AM FACILITIES CLERK documented as of this encounter Care Teams Script Manager Relationship Specialty Start Date End Date Ronni Simon MD #2 [place] [address] PCP - General Family Medicine 09/12/15 documented as of this encounter
--- OUTSIDE RECORDS SUMMARY | 2025-01-28 15:12 | XMS_ITS | Encounter Summary ---
Author Organization [facility] Address [address] [place] [address] Phone Care Team Providers Care Glassware Engraver Name Role Phone Ronni Simon MD Primary Care Provider +1- [phone] Encounter Details Date Type Department Care Team (Late Contact Info) Description 04/03/2024 Transcribe [facility] 1 [place] [address] Eddi Skaggs MD #1 [place] [address] Social History Tobacco Use Types Packs/Day Years [...] Office Visit [facility] - Family [facility] #2 [place] [address] Ronni Simon MD #[address] [address] 03/06/2025 2:15 PM CDT Office Visit [facility] Medical [facility] - Internal Medicine - [place] [address] [place] [address] Corrina Lou, PAC [address] [place] [address] 03/16/2025 8:30 AM CDT Hospital Encounter [facility] Gi Lab Periop 1 [place] [address] Aldo Perez MD #[address] [address] 03/16/2025 8:30 AM CDT - 03/16/2025 9:00 AM CDT Surgery [facility] Gi Lab Periop 1 [place] [address] Aldo Perez MD #[address] [address] COLONOSCOPY Scheduled Procedures Name Priority Associated Diagnoses Date/Ti me COLONOSCOPY SCREENING FOR COLON CANCER 03/16/2025 8:30 AM CDT documented as of this encounter Visit Diagnoses Not on filedocumented in this encounter Additional Health Concerns Assessment Noted Time PHQ-9 Depression Total Score: 0 01/06/20 21 9:00 AM MOLD COOLER documented as of this encounter Care Teams Glassware Engraver Relationship Specialty Start Date End Date Ronni Simon MD #[address] [address] PCP - General Family Medicine 09/12/15 documented as of this encounter
--- OUTSIDE RECORDS SUMMARY | 2025-01-28 15:12 | XMS_ITS | Encounter Summary ---
Author Organization [facility] Address [address] [place] [address] Phone Care Team Providers Care Media Traffic Manager Name Role Phone Ronni Simon MD Primary Care Provider +1- [phone] Reason for Visit * Reason Comments Medication Refill Encounter Details Date Type Department Care Team (Late st Contact Info) Description 09/03/2020 Refill [facility] #2 [place] [address] Ronni Simon MD #[address] [address] Medication Refill Social History Tobacco Use Types [...] COVID-19? No / Unsure 08/30/2020 8:36 AM HAT STOCK LAMINATING MACHINE OPERATOR documented as of this encounter Miscellaneous Notes [...] Outpatient Visits 1 month ago [facility], [facility] MD 4 months ago Chronic neck pain [facility] Ronni Hu MD 5 months ago Neck pain [facility] Ronni Hu MD 8 months ago Hyperlipidemia, unspecified hyperlipidemia type [facility] Ronni Hu MD 11 months ago Injury of right foot, initial encounter [facility] Carlos Ferrara APN, SALVAGE REPAIRER Upcoming Appointments Future Appointments In 1 month Ronni Simon MD [facility] CAREER DISCOVERY TEACHER - Recent and Past Visits Recent [...] Outpatient Visits 1 month ago Hypertension, essential [facility] Ronni Hu MD 4 months ago Chronic neck pain [facility] Ronni Hu MD 5 months ago Neck pain [facility] Ronni Hu MD 8 months ago Hyperlipidemia, unspecified hyperlipidemia type [facility] Ronni Hu MD 11 months ago Injury of right foot, initial encounter [facility] Carlos Ferrara APN, RADHA Upcoming Appointments Future Appointments In 1 month Ronni Simon MD [facility]OV[facility] - Recent and Past Visits Recent [...] Provider Dept 11/01/20 Appointment Ronni Simon MD [facility] Showing future appointments within next 90 days with a meds authorizing provider and meeting all other requirements STOCK LAMINATING MACHINE OPERATOR documented in this encounter Plan of Treatment Upcoming Encounters Date Type Department Care Team (Late st Contact Info) Description 02/12/2025 1:00 PM CDT Office Visit [facility] - Family Medicine [facility] #2 [place] [address] Ronni Simon MD #[address] [address] 03/06/2025 2:15 PM CDT Office Visit [facility] Internal Medicine - [place] [address] [place] [address] Corrina Lou, [facility] [address] [place] [place] [address] 03/16/2025 8:30 AM CDT Hospital Encounter [facility] Gi Lab Periop 1 [place] [address] Aldo Perez MD #[address] [address] 03/16/2025 8:30 AM CDT - 03/16/2025 9:00 AM CDT Surgery [facility] Gi Lab Periop 1 [place] [address] Aldo Perez MD #[address] [address] COLONOSCOPY Scheduled Procedures Name Priority Associated Diagnoses Date/Ti me COLONOSCOPY SCREENING FOR COLON CANCER 03/16/2025 8:30 AM CDT documented as of this encounter Visit Diagnoses Not on filedocumented in this encounter Additional Health Concerns Assessment Noted Time PHQ-9 Depression Total Score: 0 04/22/20 20 1:00 PM CDT documented as of this encounter Care Teams Media Traffic Manager Relationship Specialty Start Date End Date Ronni Simon MD #2 [place] [address] PCP - General Family Medicine 09/12/15 documented as of this encounter
--- OUTSIDE RECORDS SUMMARY | 2025-01-28 15:12 | XMS_ITS | Encounter Summary ---
Author Organization [facility] Address [address] [place] [address] Phone Care Team Providers Care Clerk Operator Name Role Phone Ronni Simon MD Primary Care Provider +1- [phone] Reason for Visit * Reason Comments Medication Refill Encounter Details Date Type Department Care Team (Late st Contact Info) Description 01/18/2023 Refill [facility] #2 [place] [address] Ronni Simon MD #[address] [address] Medication Refill Social History Tobacco Use Types [...] Dept 11/06/22 Office Visit Carlos Winslow APRN, LEAN CONSULTANT [facility] 09/04/22 [facility] 03/01/22 Office Visit Ronni Simon MD [facility] Showing recent visits within past 365 days [...] Description 02/12/2025 1:00 PM CDT Office Visit [facility] - Family Medicine - [place] #2 [facility] [address] Ronni Simon MD #[address] [place] [address] 03/06/2025 2:15 PM CDT Office Visit [facility] Internal Medicine - [place] [address] [place] [address] Corrina Lou, PAC [address] [place] [address] 03/16/2025 8:30 AM CDT [facility] 1 [place] [address] Aldo Perez MD #[address] [address] 03/16/2025 8:30 AM CDT - 03/16/2025 9:00 AM CDT [facility] 1 [place] [address] Aldo Perez MD #[address] [address] COLONOSCOPY Scheduled Procedures Name Priority Associated Diagnoses Date/Ti tx COLONOSCOPY SCREENING FOR COLON CANCER 03/16/2025 8:30 AM CDT documented as of this encounter Visit Diagnoses Not on filedocumented in this encounter Additional Health Concerns Assessment Noted Time PHQ-9 Depression Total Score: 0 01/06/20 21 9:00 AM VICE PRESIDENT OF SALES documented as of this encounter Care Teams Clerk Operator Relationship Specialty Start Date End Date Ronni Simon MD #2 [facility] [address] [place] [address] PCP - General Family Medicine 09/12/15 documented as of this encounter
--- OUTSIDE RECORDS SUMMARY | 2025-01-28 15:12 | XMS_ITS | Continuity of Care Document ---
Author Organization [facility] Address [address] [facility] [address] [place] [address] Phone Care Team Providers Care Cosmetics Counter Manager Name Role Phone Torito TEJADA, Sean Unavailable [...] Provider Providers Copied on Encounter [facility], [address], [place], [place], [id number], [place] tel:[phone] OPH CONSULT [place] No Information 8 oTrito Estrada. [address], [address], [place], [place], [id number], [place]. tel:[phone] Referring Provider: Sean Krishnasam y, [address], [place], [address] . tel:[phone] [facility], [address] [place] [address], [id number], tel:[phone] [address] [place] [address] No Information 8 Krishnasamy Sean. [address], [address], [place], [place], [id number], [place]. tel:[phone] Referring Provider: Sean peña, [address], [place], [address] . tel:[phone] [facility], [address] [place] [address], [id number], [place] tel:[phone] [place] [address] [facility] [place] No Information 8 Krishnasamy Sean. [address], [address], [place], [place], [address], [place]. tel:[phone] Referring Provider: Sean peña, [address], [place], [address] . tel:[phone] [facility], [address] [place] [address], [id number], [place] tel:[phone] OPH CONSULT [place] [place] No Information 8 Krishnasamy Sean. [address], [address], [place], [place], [id number], [place]. tel:[phone] [facility], [address] [place] [address], [id number], [place] tel:[phone] OPH CONSULT [facility] [place] No Information 8 Krishnasamy Sean. [address], [address], [place], [id number], [place]. tel:[phone] OFFICE/OUTPA TIENT VISIT, [facility], [address] [place] [address], [id number], tel:[phone] No Information Torito Estrada. [address], [address], [place], [place], [id number], . tel:[phone] Referring Provider: Sean peña, [address], [place], [address] . tel:[phone] Family History Family Member Type Diagnosis Age At Onset No Information Payers Payer name Insurance type Covered alliance party ID Authoriza tion(s) Medicare Complete Advantage [facility] [id number] Social History Type Description Quantity Date [...]
--- OUTSIDE RECORDS SUMMARY | 2025-01-28 15:12 | XMS_ITS | Clinical Summary ---
Author Organization [facility] Address [address] [place] [address] Care Team Providers Care Field Service Manager Name Role Phone Unavailable Primary Care Provider Unavailabl e Source Comments [facility],non-owned Affiliates and Associated Physician Practices is amultiple site organization consisting of ambulatory clinics and hospital sitesin [place], [place], [place] and [place]. This disclosure is being madepursuant to the Care Everywhere program and may not contain all information available regarding this patient. Last updated [employer].[facility] Allergies No known active allergies Medications * [...]
--- OUTSIDE RECORDS SUMMARY | 2025-01-28 15:12 | XMS_ITS | Encounter Summary ---
Author Organization [facility] Address [address] [facility] [place] [address] Phone Care Team Providers Care Tricot Knitter Name Role Phone Ronni Simon MD Primary Care Provider +1- [phone] Encounter Details Date Type Department Care Team (Late st Contact Info) Description 09/07/2020 Telephone [facility] On[facility] Services [address] [place] [address] Mendel Dillard MD [address] [place], [place] [id number] Social History Tobacco Use Types Packs/Day Years [...] COVID-19? 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 Dillard's May 2020 note. ASSEMBLY WORKER documented in this encounter Plan of Treatment Upcoming Encounters Date Type Department Care Team (Late st Contact Info) Description 02/12/2025 1:00 PM CDT Office Visit [facility] Family Medicine [facility] #2 [place] [address] Ronni Simon MD #2 [facility] [address] [place] [address] 03/06/2025 2:15 PM CDT Office Visit [facility] Internal [facility] [address] [place] [address] Corrina Lou, [facility] [address] [place] [address] 03/16/2025 8:30 AM CDT Hospital Encounter [facility] Gi Lab Periop 1 [place] [address] Aldo Perez MD #[address] [address] 03/16/2025 8:30 AM CDT - 03/16/2025 9:00 AM CDT [facility] 1 [place] [address] Aldo Perez MD #[address] [address] COLONOSCOPY Scheduled Procedures Name Priority Associated Diagnoses Date/Ti me COLONOSCOPY SCREENING FOR COLON CANCER 03/16/2025 8:30 AM CDT documented as of this encounter Visit Diagnoses Not on filedocumented in this encounter Additional Health Concerns Assessment Noted Time PHQ-9 Depression Total Score: 0 04/22/20 20 1:00 PM CDT documented as of this encounter Care Teams Tricot Knitter Relationship Specialty Start Date End Date Ronni Simon MD #[address] [address] PCP - General Family Medicine 09/12/15 documented as of this encounter
--- OUTSIDE RECORDS SUMMARY | 2025-01-28 15:12 | XMS_ITS | Encounter Summary ---
Author Organization [facility] Address [address] [place] [address] Phone Care Team Providers Care Side Stitcher Name Role Phone Alfred Ronniradha Rodriguez MD Primary Care Provider +1- [phone] Reason for Visit * Reason Comments Medication Refill Encounter Details Date Type Department Care Team (Late st Contact Info) Description 04/20/2023 Refill [facility] Medicine [facility] #2 [place] [address] Carlos Winslow APRN, ROTO MIXER OPERATOR #[address] [address] Medication Refill Social History Tobacco Use Types [...] Dept 03/06/23 Office Visit [facility] 11/06/22 Office Visit Carlos Winslow APRN, RADHA [facility] 09/04/22 Office Visit Ronni Simon MD [facility] Showing recent visits within past 365 days [...] HOSPITAL [facility] - Family Medicine - [place] #[address] [place] [address] Ronni Simon MD #[address] [address] 03/06/2025 2:15 PM CDT Office Visit [facility] Medical Group - Internal Medicine - [place] [address] [place] [address] Corrina Lou, PAC [address] [place] [address] 03/16/2025 8:30 AM CDT [facility] 1 [place] [address] Aldo Perez MD #[address] [address] 03/16/2025 8:30 AM CDT - 03/16/2025 9:00 AM CDT [facility] 1 [place] [address] Aldo Perez MD #[address] [address] COLONOSCOPY Scheduled Procedures Name Priority Associated Diagnoses Date/Ti me COLONOSCOPY SCREENING FOR COLON CANCER 03/16/2025 8:30 AM CDT documented as of this encounter Visit Diagnoses Not on filedocumented in this encounter Additional Health Concerns Assessment Noted Time PHQ-9 Depression Total Score: 0 01/06/20 21 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
--- OUTSIDE RECORDS SUMMARY | 2025-01-28 15:12 | XMS_ITS | Encounter Summary ---
Author Organization [facility] Address [address] [place] [address] Phone Care Team Providers Care Sales Correspondence Clerk Name Role Phone Ronni Simon MD Primary Care Provider +1- [phone] Reason for Visit * Reason Comments Medication Refill Encounter Details Date Type Department Care Team (Late st Contact Info) Description 09/27/2020 Refill [facility] #2 [place] [address] Ronni Siomn MD #[address] [address] Medication Refill Social History Tobacco Use Types [...] COVID-19? No / Unsure 09/28/2020 8:53 AM COSTUMER ASSISTANT documented as of this encounter Miscellaneous Notes [...] Outpatient Visits 2 months ago Hypertension, essential [facility] Medical [facility] - Ronni Hu MD 5 months ago Chronic neck pain [facility] - Ronni Hu MD 6 months ago Neck pain [facility] Medical [facility] - Ronni Hu MD 9 months ago Hyperlipidemia, unspecified hyperlipidemia type [facility] - Ronni Hu MD 1 year ago Injury of right foot, initial encounter [facility] Carlos Ferrara APN, STOCK CHECKERER Upcoming Appointments Future Appointments Tomorrow [address], [facility] In [address] [facility] CHEMICAL RECOVERY OPERATOR - Recent and Past Visits Recent Visits Date Type Provider Dept 07/27/20 Office Visit Ronni Simon MD [facility] 04/22/20 Office Visit Ronni Simon MD [facility] 03/25/20 Office Visit Ronni Simon MD [facility] 12/18/19 Office Visit Ronni Simon MD [facility] 09/18/19 Office Visit Carlos Winslow APN, RADHA [facility] 08/06/19 Office Visit Ronni Simon MD [...] authorizing provider and meeting all other requirements UMER ASSISTANT documented in this encounter Plan of Treatment Upcoming Encounters Date Type Department Care Team (Late st Contact Info) Description 02/12/2025 1:00 PM CDT Office Visit [facility] Family [facility] #2 [place] [address] Ronni Simon MD #[address] [address] 03/06/2025 2:15 PM CDT Office Visit [facility] - Internal Medicine - [place] [address] [place] [address] Corrina Lou, [facility] [address] [place] [address] 03/16/2025 8:30 AM CDT Hospital Encounter [facility] Gi Lab Periop 1 [place] [address] Aldo Perez MD #[address] [address] 03/16/2025 8:30 AM CDT - 03/16/2025 9:00 AM CDT Surgery [facility] Gi Lab Periop 1 [place] [address] Aldo Perez MD #[address] [address] COLONOSCOPY Scheduled Procedures Name Priority Associated Diagnoses Date/Ti me COLONOSCOPY SCREENING FOR COLON CANCER 03/16/2025 8:30 AM CDT documented as of this encounter Visit Diagnoses Not on filedocumented in this encounter Additional Health Concerns Assessment Noted Time PHQ-9 Depression Total Score: 0 04/22/20 20 1:00 PM CDT documented as of this encounter Care Teams Sales Correspondence Clerk Relationship Specialty Start Date End Date Ronni Simon MD #2 [place] [id number] PCP - General Family Medicine 09/12/15 documented as of this encounter
--- OUTSIDE RECORDS SUMMARY | 2025-01-28 15:12 | XMS_ITS | Encounter Summary ---
Author Organization [facility] Address [address] [place] [address] Phone Care Team Providers Care Event Marketing Assistant Name Role Phone Selina Rosas MD Primary Care Provider +1- [phone] Reason for Visit * Reason Comments Medication Refill Encounter Details Date Type Department Care Team (Late st Contact Info) Description 08/03/2020 Refill [facility] #2 [place] [address] Selina Rosas MD #[address] [address] Medication Refill Social History Tobacco Use Types [...] Sources Source Last Checked for Updates Status [facility] 08/03/2020 11:27 AM History Response Filed documented in this encounter Plan of Treatment Upcoming Encounters Date Type Department Care Team (Late st Contact Info) Description 02/12/2025 1:00 PM CDT Office Visit [facility] Medical [facility] - Family [facility] #2 [place] [address] Selina Rosas MD #[address] [address] 03/06/2025 2:15 PM CDT Office Visit [facility] Medical [facility] - Internal Medicine - [place] [address] [place] [address] Corrina Lou, [facility] [address] [place] [address] 03/16/2025 8:30 AM CDT [facility] 1 [place] [address] Aldo Perez MD #[address] [address] 03/16/2025 8:30 AM CDT - 03/16/2025 9:00 AM CDT Surgery [facility] Gi Lab Periop 1 [place] [address] Aldo Perez MD #[address] [address] COLONOSCOPY Scheduled Procedures Name Priority Associated Diagnoses Date/Ti ga COLONOSCOPY SCREENING FOR COLON CANCER 03/16/2025 8:30 AM CDT documented as of this encounter Visit Diagnoses Not on filedocumented in this encounter Additional Health Concerns Assessment Noted Time PHQ-9 Depression Total Score: 0 04/22/20 20 1:00 PM CDT documented as of this encounter Care Teams Event Marketing Assistant Relationship Specialty Start Date End Date Selina Rosas MD #[address] [address] PCP - General Family Medicine 09/12/15 documented as of this encounter
--- OUTSIDE RECORDS SUMMARY | 2025-01-28 15:12 | XMS_ITS | Encounter Summary ---
Author Organization [facility] Address [address] [place] [address] Phone Care Team Providers Care Refractory Tile Helper Name Role Phone Ronni Simon MD Primary Care Provider +1- [phone] Reason for Visit * Reason Comments Medication Refill Encounter Details Date Type Department Care Team (Late st Contact Info) Description 08/18/2020 Refill [facility] #2 [place] [address] Ronni Simon MD #[address] [address] Medication Refill Social History Tobacco Use Types [...] Description 02/12/2025 1:00 PM CDT Office Visit [facility] Family [facility] #2 [place] [address] Ronni Simon MD #[address] [address] 03/06/2025 2:15 PM CDT Office Visit [facility] Internal Medicine - [place] [address] [place] [address] Corrina Lou, [facility] [address] [place] [address] 03/16/2025 8:30 AM CDT Hospital Encounter [facility] Gi Lab Periop 1 [place] [address] Aldo Perez MD #[address] [address] 03/16/2025 8:30 AM CDT - 03/16/2025 9:00 AM CDT [facility] 1 [place] [address] Aldo Perez MD #[address] [address] COLONOSCOPY Scheduled Procedures Name Priority Associated Diagnoses Date/Ti me COLONOSCOPY SCREENING FOR COLON CANCER 03/16/2025 8:30 AM CDT documented as of this encounter Visit Diagnoses Not on filedocumented in this encounter Additional Health Concerns Assessment Noted Time PHQ-9 Depression Total Score: 0 04/22/20 20 1:00 PM CDT documented as of this encounter Care Teams Refractory Tile Helper Relationship Specialty Start Date End Date Ronni Simon MD #[address] [address] PCP - General Family Medicine 09/12/15 documented as of this encounter
--- OUTSIDE RECORDS SUMMARY | 2025-01-28 15:12 | XMS_ITS | Encounter Summary ---
Author Organization [facility] Address [address] [place] [address] Phone Care Team Providers Care Dental Receptionist Name Role Phone Ronni Simon MD Primary Care Provider [phone]- [phone] Reason for Visit * Reason Comments Medication Refill Encounter Details Date Type Department Care Team (Late st Contact Info) Description 07/06/2020 Refill [facility] #2 [place] [address] Ronni Simon MD #[address] [address] Medication Refill Social History Tobacco Use Types [...] ago Chronic neck pain [facility] Ronni Simon MD 3 months ago Neck pain [facility] Ronni Simon MD 6 months ago Hyperlipidemia, unspecified hyperlipidemia type [facility] Ronni Simon MD 9 months ago Injury of right foot, initial encounter [facility] Carlos Winslow APN, IN FLIGHT REFUELING SYSTEM REPAIRER 11 months ago Right knee pain, unspecified chronicity [facility] Ronni Simon MD Upcoming Appointments Future Appointments In 3 weeks Ronni Simon MD [facility], [facility] - Recent and Past Visits Recent Visits Date Type Provider Dept 04/22/20 Office Visit Ronni Simon MD [facility] 03/25/20 Office Visit Ronni Simon MD [facility] 12/18/19 Office Visit Ronni Simon MD [facility] 09/18/19 Office Visit Carlos Winslow APN, IN FLIGHT REFUELING SYSTEM REPAIRER [facility] 08/06/19 Office Visit Ronni Simon [...] 02/12/2025 1:00 PM CDT Office Visit [facility] Family [facility] #2 [place] [address] Ronni Simon MD #[address] [address] 03/06/2025 2:15 PM CDT Office Visit [facility] Internal Medicine [facility] [address] [place] [address] Corrina Lou, [facility] [address] [place] [address] 03/16/2025 8:30 AM CDT Hospital Encounter [facility] [address] [place] [address] Aldo Perez MD #[address] [address] 03/16/2025 8:30 AM CDT - 03/16/2025 9:00 AM CDT Surgery [facility] [address] [place] [address] Aldo Perez MD #[address] [address] COLONOSCOPY Scheduled Procedures Name Priority Associated Diagnoses Date/Ti me COLONOSCOPY SCREENING FOR COLON CANCER 03/16/2025 8:30 AM CDT documented as of this encounter Visit Diagnoses Not on filedocumented in this encounter Additional Health Concerns Assessment Noted Time PHQ-9 Depression Total Score: 0 04/22/20 20 1:00 PM CDT documented as of this encounter Care Teams Dental Receptionist Relationship Specialty Start Date End Date Ronni Simon MD #2 [place] [id number] PCP - General Family Medicine 09/12/15 documented as of this encounter
--- OUTSIDE RECORDS SUMMARY | 2025-01-28 15:12 | XMS_ITS | Referral Summary ---
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
--- OUTSIDE RECORDS SUMMARY | 2025-01-28 15:12 | XMS_ITS | Encounter Summary ---
Author Organization [facility] Address [address] [place] [address] Phone Care Team Providers Care Subassembly Supervisor Name Role Phone Ronni Simon MD Primary Care Provider [phone]- [phone] Reason for Visit * Reason Comments Medication Refill Encounter Details Date Type Department Care Team (Late st Contact Info) Description 07/12/2022 Refill [facility] #2 [place] [address] Ronni Simon MD #[address] [address] Medication Refill Social History Tobacco Use Types [...] Visit [facility] #2 [place] [address] Ronni Simon MD #[address] [address] 03/06/2025 2:15 PM CDT Office Visit [facility] Internal Medicine - [place] [address] [facility] [place] [place] [address] Corrina Lou, [facility] [address] [place] [address] 03/16/2025 8:30 AM CDT Hospital Encounter [facility] Lab Periop 1 [place] [address] Aldo Perez MD #[address] [address] 03/16/2025 8:30 AM CDT - 03/16/2025 9:00 AM CDT Surgery [facility] Periop 1 [place] [address] Aldo Perez MD #[address] [address] COLONOSCOPY Scheduled Procedures Name Priority Associated Diagnoses Date/Ti me COLONOSCOPY SCREENING FOR COLON CANCER 03/16/2025 8:30 AM CDT documented as of this encounter Visit Diagnoses Diagnosis Insomnia, unspecified type documented in this encounter Additional Health Concerns Assessment Noted Time PHQ-9 Depression Total Score: 0 01/06/20 21 9:00 AM BUSINESS 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
--- OUTSIDE RECORDS SUMMARY | 2025-01-28 15:12 | XMS_ITS | Clinical Summary ---
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
--- OUTSIDE RECORDS SUMMARY | 2025-01-28 15:12 | XMS_ITS | Clinical Summary ---
Author Organization [facility] Address #[address] [address] Phone Care Team Providers Care Coal Loader Name Role Phone Ronni Simon MD Primary Care Provider +1- [phone] Allergies No known active allergies Medications Multiple [...] Type Department Care Team Description 11/28[facility] [place] [address] Ronni Simon MD Medication Refill 11/26/2024 Travel 11/20/2024 Documentation Only [facility] [place] [address] Ronni Simon MD 11/07/2024 Telephone [facility] [facility] [address] Ronni Simon MD 10/30/2024 3:00 PM SHEETROCK APPLICATOR Office Visit [facility] - General Surgery - [place] [address] [address] Aldo Perez MD Special screening [...] drink = 0.6 oz pur e alcohol) [facility] Utilities Answer Date Recorded In the [...] often do you attend chur ch or nondenominational services? More than 4 times per year 09/03/2024 Do you belong to any clubs o r organizations such as baptism groups, unions, fraternal or athletic groups, or [...] Total Score - Questions 1-9 0 01/2022 [facility] Occupat ional [facility] - Occupational Stress Questionnaire Answer Date [...] any time in the past 12 [facility], were you homeless or living in a fpc (including now)? No 09/03/2024 Education Answer Date [...] Comments Blood Pressure 160/88 10/30/2024 3:15 PM SHEETROCK APPLICATOR Pulse 73 10/30/2024 3:15 PM SHEETROCK APPLICATOR Temperature 36.6 C (97.8 F) 10/30/2024 3:15 PM SHEETROCK APPLICATOR Respiratory Rate 16 09/22/2024 8:44 AM SHEETROCK APPLICATOR Oxygen Saturation 96% 10/30/2024 3:15 PM SHEETROCK APPLICATOR Inhaled Oxygen Concentration - - Weight 90.3 kg (199 lb) 11/26/2024 2:29 PM SHEETROCK APPLICATOR Height 172.7 cm (5' 8 ) 11/26/2024 2:29 PM SHEETROCK APPLICATOR Body Mass Index 30.26 11/26/2024 2:29 PM SHEETROCK APPLICATOR Plan of Treatment Upcoming Encounters Date Type Department Care Team (Late st Contact Info) Description 02/12/2025 1:00 PM CDT Office Visit [facility] - Family [facility] #2 [place] [address] Ronni Simon MD #[address] [address] 03/06/2025 2:15 PM CDT Office Visit [facility] - Internal Medicine [facility] [address] [place] [address] Corrina Lou, [facility] [address] [place] [address] 03/16/2025 8:30 AM CDT Hospital Encounter [facility] Periop 1 [place] [address] Aldo Perez MD #[address] [address] 03/16/2025 8:30 AM CDT - 03/16/2025 9:00 AM CDT Surgery [facility] Periop 1 [place] [address] Aldo Perez MD #[address] [address] COLONOSCOPY Scheduled Procedures Name Priority Associated Diagnoses [...] HEPATITIS C ANTIBODY Routine 09/23/2018 10:08 AM SHEETROCK APPLICATOR Encounter for hepatitis C screening test for low risk patient [facility] COLONOSCOPY Routine 02/10/2015 from Last 3 Months or Most Recently Relevant to Health Maintenance Results * ORTHOPEDIC PROCEDURE (01/06/2025 12:00 AM CDT) 01/06/2025 us Provider Scan GEN ORDERS Final Result SCAN * XR - LOWER EXTREMITY (01/06/2025 12:00 AM CDT) 01/06/2025 us Provider Scan IMG DIAGNOSTIC ORDERABLES Final Result Performing Organization Address City/[facility]/ZIP Co de Phone Number SCAN * STOOL, OCCULT BLOOD, SCREEN FOR CA (07/12/2019) Stool specimen (specimen) STOOL SPECIMEN / Unknown us Not On File Provider URINE ORDERABLES Final Resu lt * HEPATITIS C ANTIBODY (09/23/2018 10:08 AM SHEETROCK APPLICATOR) hepatitis C antibody 0.07 <1 S/CO 09/23/2018 9:53 PM SHEETROCK APPLICATOR [facility] Comment: Signal/Cutoff ratio < 0.79 is Nondetected Signal/Cutoff ratio 0.80-0.99 is Grayzone Signal/Cutoff ratio > 0.99 is Detected Supplemental assays are recommended if signal/cutoff ratio is >/=1.00. Signal/cutoff ratio result >/= 5.00 is 97% predictive of positivity for recombinant immunoblot assay (RIBA) and will be reported to the [place] Department of Public Health as required. Blood specimen (specimen) Venipuncture / Unknown 09/23/2018 10:08 AM SHEETROCK APPLICATOR 09/23/2018 10:08 AM SHEETROCK APPLICATOR us Ronni Simon MD CHEMISTRY ORDERABLES Final Result [facility] [address] [place] [address], * COLONOSCOPY (02/10/2015) us Rome Fernandes MD PROCEDURE/MINOR SURGICAL OR DERABLES Final Result from Last 3 Months or Most Recently Relevant to Health Maintenance Insurance MEDICARE C [employer] Care Teams Coal Loader Relationship Specialty Start Date End Date Ronni Simon MD #[address] [address] PCP - General Family Medicine 09/12/15
--- OUTSIDE RECORDS SUMMARY | 2025-01-28 15:12 | XMS_ITS | Encounter Summary ---
Author Organization [facility] Address [address] [place] [address] Phone Care Team Providers Care Medical Research Tech Name Role Phone Alfred Ronniradha Rodriguez MD Primary Care Provider +1- [phone] Reason for Visit * Reason Comments Medication Refill Encounter Details Date Type Department Care Team (Late st Contact Info) Description 12/20/2021 Refill [facility] #2 [place] [address] Carlos Winslow APRN, ACCOUNTING TECHNICIAN #[address] [address] Medication Refill Social History Tobacco Use Types [...] 90 days and meeting all other requirements GER OF INTERNAL AUDIT documented in this encounter Plan of Treatment Upcoming Encounters Date Type Department Care Team (Late st Contact Info) Description 02/12/2025 1:00 PM CDT Office Visit [facility] - Family [facility] #2 [place] [address] Ronni Simon MD #[address] [address] 03/06/2025 2:15 PM CDT Office Visit [facility] - Internal [facility] [address] [place] [address] Corrina Lou, [facility] [address] [place] [address] 03/16/2025 8:30 AM CDT Hospital Encounter [facility] Gi Lab Periop 1 [place] [address] Aldo Perez MD #[address] [address] 03/16/2025 8:30 AM CDT - 03/16/2025 9:00 AM CDT [facility] 1 [place] [address] Aldo Perez MD #[address] [address] COLONOSCOPY Scheduled Procedures Name Priority Associated Diagnoses Date/Ti me COLONOSCOPY SCREENING FOR COLON CANCER 03/16/2025 8:30 AM CDT documented as of this encounter Visit Diagnoses Not on filedocumented in this encounter Additional Health Concerns Assessment Noted Time PHQ-9 Depression Total Score: 0 01/06/20 21 9:00 AM MANAGER OF INTERNAL AUDIT documented as of this encounter Care Teams Medical Research Tech Relationship Specialty Start Date End Date Ronni Simon MD #[address] [address] PCP - General Family Medicine 09/12/15 documented as of this encounter
[2025-01-28] MEDS: CEPHALEXIN 500 MG CAPSULE PO (16:41)
== END 2025-01-28 17:27 | disposition home or self-care (01) ==
PROVIDERS: Emergency Provider Emergency Medicine; PCP Family Medicine
DX: T81.31XA Disruption of external operation (surgical) wound, not elsewhere classified, initial encounter (principal); I10 Essential (primary) hypertension; E78.5 Hyperlipidemia, unspecified; D50.9 Iron deficiency anemia, unspecified; Z96.651 Presence of right artificial knee joint; Z86.73 Personal history of transient ischemic attack (TIA), and cerebral infarction without residual deficits; Z87.891 Personal history of nicotine dependence; Z79.02 Long term (current) use of antithrombotics/antiplatelets; Z79.899 Other long term (current) drug therapy; W01.0XXA Fall on same level from slipping, tripping and stumbling without subsequent striking against object, initial encounter
CPT/HCPCS: 12005; 12020; 73562; 96374; 96375; 99284; A9270; J2004; J2270; J2405